=== PATIENT | male | born 1970 | race Two or more races ===

== ENCOUNTER 2016-11-03 16:06 | Emergency (ER) | payer MEDICAID ==
--- NOTE | 2016-11-03 16:50 | ED Physician Chart ---
Chief Complaint/HPI - Patient Information Date Seen:: 11/03/16 Time Seen:: 16:35 Chief Complaint:: PAIN AND REDNESS IN LT LEG SINCE MIDNIGHT History of Present Illness:: This 46-year-old male states that he sustained an injury to his left foot when he was "crawling over a wall" yesterday at about 7 PM. About midnight the patient noticed that he was having fever and that the area had turned red and painful. Patient has no prior similar episodes and is not a diabetic to the best of his knowledge. Review of Systems - Review of Systems General/Constitutional: Fever, Chills, No weight loss, No weakness, No diaphoresis, No loss of appetite Skin: Skin lesions, Rash, Bruising Head: No headache, No light-headedness Eyes: No loss of vision, No diplopia ENT: No earache, No sore throat, No tinnitus Neck: No neck pain, No swelling, No stiffness, No mass noted Cardio Vascular: No chest pain, No palpitations, No PND, No edema Pulmonary: No SOB, No cough, No sputum GI: No nausea, No vomiting, No pain, No constipation, No hematemesis G/U: No dysuria, No frequency, No hematuria Musculoskeletal: No bone or joint pain, No back pain, No muscle pain Endocrine: No polyuria, No polydipsia Psychiatric: Prior psych history Hematopoietic: No bruising, No lymphadenopathy Neurological: No syncope, No focal symptoms, No weakness, No paresthesia, No headache, No seizure, No dizziness, No confusion, No vertigo Past Medical History - Past Medical History Past Medical History: No significant medical hx Social History: Non Smoker, No Drug Use, Surgical History: None Psychiatricy History: None Family Medical History - Family Member Mother History Unknown: Yes Ethnicity: Living Status: Unknown Physical Exam - Physical Examination General/Constitutional: Awake, Well-developed, well-nourished, Alert, GCS 15, Non-toxic appearing, Ambulatory Head: Atraumatic Eyes: Lids, conjuctiva normal Other Skin comments:: THE PT HAS A CLEAR CELLULITIS STARTING IN THE WEB SPACE BETWEEN THE BIG AND SECOND TOE AND EXTENDING UP THE ANTERIOR PORTION OF THE LEG TO JUST BELOW THE KNEE. THE AREA IS VERY ERYTHEMIC, AND WELL MARGFINATED WITH SOME SEPARATE ISLANDS OF REDNESS. MINIMAL TENDERNESS OF THE ERYTHEMIC AREA. NO REGIONAL LYMPHADENOPATHY. ENMT: External ears, nose nl Neck: No JVD Respiratory: Nl effort/Exclusion Other Extremities comments:: Limited physical examination of the left lower extremity. The patient has mild edema of the right lower extremity anteriorly and below the knee. It extends to just above the ankle. There is marked erythema with sharp margins of the knee and at the ankle. The area is tender to the touch and warm. The patient has an abrasion over the dorsal surface of the webspace between the big toe and the second toe.. No palpable adenopathy in the inguinal region. No lymphangitis. Labs/Radiology/EKG Results - Lab Results Results: NO INDICATIONS FOR LAB OR RADIOGRAPHIC STUDIES. Assessment - Assessment General Assessment: CASE SUMMARY: PT WITH STRAIGHT FORWARD INJURY TO THE LEFT FOOT AND INFECTION THAT SPREAD TO THE LT ANTERIOR LEG. PT HAD FEVER AND CHILLS AT THE TIME OF ONSET. PT WAS TREATED WITH IM ANCEF AND D/C WITH RX FOR CEPHALEXIN 500 MG TO BE TAKEN QID FOR 10 DAYS.. RE-CHECK SCHEDULED FOR NEXT DAY TO LOOK AT THE OUTLINED MARGINS OF THE INFECTION. MDM DDX OF REDNESS OF THE LT LEG: NOT INFECTED FOREIGN BODY BASED ON HISTORY AND EXAM. NOT DVT BASED ON EXAMINAION. NOT NECROTIZING FASCIITIS BASED ON HISTORY AND EXAM. ED Septic Shock - . Is Septic Shock (SBP<90, OR Lactate>4 mmol\\L) present?: No Reassessment (Disposition) - Reassessment Reassessment Condition:: Unchanged - Diagnosis Diagnosis:: ABRASION left foot between the big toe and second toe. CELLULITIS of the left anterior tibial region. Take the cephalexin 4 times a day for the next 10 days. Return to the emergency department 2 days for recheck of wound and cellulitis or sooner if the redness spreads beyond the boundaries of the marked infection. - Patient Disposition Discharge/Transfer:: Home ED Discharge Plan - Patient Disposition Admit/Discharge/Transfer: PT DISCHARGED HOME Condition at Disposition: Stable Instructions: Cellulitis
[2016-11-03] MEDS ORDERED: Bacitracin Zinc/Polymyxin B Oint 15 gm Tube TP ONE (16:55)
[2016-11-03] MEDS ORDERED: Triple Antibiotic 0.94 gm Pkt TP ONE (17:01)
== END 2016-11-03 17:45 | disposition home or self-care (01) ==
LOC: ER 16:06
DX: S90.812A Abrasion, left foot, initial encounter (principal); L03.116 Cellulitis of left lower limb; X58.XXXA Exposure to other specified factors, initial encounter; Y93.89 Activity, other specified; Y92.89 Other specified places as the place of occurrence of the external cause; Y99.8 Other external cause status
CPT/HCPCS: 99283; 96372; J0690; A4217; J2001; Z7502

== ENCOUNTER 2018-02-18 18:51 | Inpatient (IN) | payer MEDICAID ==
--- NOTE | 2018-02-18 20:57 | ED Physician Chart ---
ED Chief Complaint/HPI - Patient Information Date Seen:: 02/18/18 Time Seen:: 20:40 Chief Complaint:: abdominal swelling History of Present Illness:: Patient's had abdominal swelling abdominal pain, and leg swelling for last 1 week. He has shortness of breath and no chest pain. Patient's been in a rehabilitation program for alcohol abuse for 18 days. His last alcohol consumption was 12 days ago, cough for 2 days. No fever. Allergies:: Allergies Allergy/AdvReac Type Severity Reaction Status Date / Time No Known Allergies Allergy Verified 02/18/18 19:06 Vitals:: Vital Signs - 8 hr 02/18/18 19:00 Temp 98.2 F HR 88 RR 16 BP 131/76 O2 Sat % 95 Historian:: Patient, Family Member Review:: Nurse's Note Reviewed ED Review of Systems - Review of Systems General/Constitutional: No fever, No chills, No weight loss, No weakness, No diaphoresis, No edema, No loss of appetite Skin: No skin lesions, No rash, No bruising Head: No headache, No light-headedness Eyes: No loss of vision, No pain, No diplopia ENT: No earache, No nasal drainage, No sore throat, No tinnitus Neck: No neck pain, No swelling, No thyromegaly, No stiffness, No mass noted Cardio Vascular: No chest pain, No palpitations, No PND, No orthopnea, No edema Pulmonary: No SOB, No cough, No sputum, No wheezing GI: No nausea, No vomiting, No diarrhea, Pain, No melena, No hematochezia, No constipation, No hematemesis, Other (abdominal distention) G/U: No dysuria, No frequency, No hematuria Musculoskeletal: No bone or joint pain, No back pain, No muscle pain, Other ( leg swelling) Endocrine: No polyuria, No polydipsia Psychiatric: No prior psych history, No depression, No anxiety, No suicidal ideation Hematopoietic: No bruising, No lymphadenopathy Allergic/Immuno: No urticaria, No angioedema Neurological: No syncope, No focal symptoms, No weakness, No paresthesia, No headache, No seizure, No dizziness, No confusion, No vertigo ED Past Medical History - Past Medical History Past Medical History: No significant medical hx Family History: None Social History: Non Smoker, Alcohol, Other (drank tequila heavily for 30 years) Surgical History: None Psychiatricy History: None Medication: None Family Medical History - Family Member Mother History Unknown: Yes Ethnicity: Living Status: Unknown ED Physical Exam - Physical Examination General/Constitutional: Awake, No distress Other Gen/Cons comments:: Distended abdomen; in no acute distress Head: Atraumatic Eyes: Lids, conjuctiva normal Other Eyes comments:: Icteric sclera Other Skin comments:: Skin 2/4 jaundiced Neck: No nuchal rigidity Respiratory: Nl effort/Exclusion, Clear to Auscultation Cardio Vascular: RRR GI: No tenderness/rebounding/guarding Other GI comments:: About 3 cm umbilical hernia; abdominal wall skin edematous; abdomen 3 out of 4 distended : No CVA tenderness Other Extremities comments:: 3 out of 4 pretibial pitting edema Neuro/Psych: No focal deficits Misc: Normal back ED Labs/Radiology/EKG Results - Lab Results Results: Laboratory Results - last 24 hr 02/18/18 02/18/18 02/18/18 21:01 21:01 21:01 WBC 5.6 RBC 4.76 Hgb 14.9 Hct 44.0 MCV 92.4 MCH 31.3 H MCHC Differential 33.8 RDW 19.4 Plt Count 74 L MPV 8.0 Neutrophils % 65.4 Lymphocytes % 18.0 L Monocytes % 12.7 H Eosinophils % 1.6 Basophils % 2.3 H PT 16.6 H INR 1.56 H Sodium 126 L Potassium 3.5 Chloride 96 L Carbon Dioxide 23.6 Anion Gap 9.9 BUN 7 Creatinine 0.8 Est GFR ( Amer) > 60.0 Est GFR (Non-Af Amer) > 60.0 BUN/Creatinine Ratio 8.8 Glucose 111 H Calcium 8.3 L Total Bilirubin 24.0 H AST 139 H ALT 70 H Alkaline Phosphatase 186 H Total Protein 6.8 Albumin 2.5 L Globulin 4.3 Albumin/Globulin Ratio 0.6 L Lipase 50 - Radiology Results Results: Chest x-ray showed left pleural effusion and possible left basilar infiltrate; CT abdomen and pelvis showed moderate ascites, liver cirrhosis, prominent spleen , anasarca, umbilical hernia and gallstones - EKG Interpretations Rate & Rhythm: normal sinus rhythm with a rate of 63 [place]: normal Comments:: Old septal myocardial infarction; left ventricular hypertrophy by voltage criteria ED Septic Shock - . Is Septic Shock (SBP<90, OR Lactate>4 mmol\L) present?: No - <6hrs of presentation: Vital Signs: Vital Signs - 8 hr 02/18/18 19:00 Temp 98.2 F HR 88 RR 16 BP 131/76 O2 Sat % 95 ED Reassessment (Disposition) - Reassessment Reassessment Condition:: Unchanged - Diagnosis Diagnosis:: Cirrhosis with ascites; hyperbilirubinemia; left pleural effusion; pneumonia; hyperprothrombinemia; hypoalbuminemia - Patient Disposition Admitted to:: Med/Surg Admitting Medical Physician:: Jamin Horton Condition at Disposition:: Stable, Unchanged
[2018-02-18 21:09] LABS: % BASOPHILS 2.3 % (0.0-2.0); % EOSINOPHILS 1.6 % (0.0-5.0); % MONOCYTES 12.7 % (2.0-10.0); % NEUTROPHILS 65.4 % (40.0-80.0); BASOPHILE ABSOLUTE 0.1 Th/cumm (0-0.2); EOSINOPHILE ABSOLUTE 0.1 Th/cmm (0.1-0.4); HEMOGLOBIN 14.9 gm/dL (12-16); MEAN CELL VOLUME 92.4 fl (80-99); MEAN CORPUSCULAR HEMOGLOBIN 31.3 pg (26.0-30.0); MEAN CORPUSCULAR HGB CONC 33.8 pg (28.0-36.0); MONOCYTE ABSOLUTE 0.7 Th/cmm (0.3-1.0); NEUTROPHILE ABSOLUTE 3.7 Th/cmm (1.8-8.0); PLATELET COUNT 74 Th/cmm (150-400); RED BLOOD COUNT 4.76 Mil/cmm (4.30-5.70); RED CELL DISTRIBUTION WIDTH 19.4 % (11.5-20.0); WHITE BLOOD COUNT 5.6 Th/cmm (4.8-10.8)
[2018-02-18 21:23] LABS: INR 1.56 (0.5-1.4); PROTHROMBIN TIME (TEST) 16.6 SECONDS (9.5-11.5)
[2018-02-18 21:27] LABS: ALB/GLOB RATIO 0.6 (1.0-1.8); ALBUMIN 2.5 gm/dL (4.2-5.5); ALKALINE PHOSPHATASE 186 U/L (34-104); ANION GAP 9.9 (7.0-16.0); BUN - UREA NITROGEN 7 mg/dL (7-25); CALCIUM SERUM 8.3 mg/dL (8.6-10.3); CARBON DIOXIDE 23.6 mEq/L (21.0-31.0); CHLORIDE 96 mEq/L (98-107); CREATININE - SERUM 0.8 mg/dL (0.7-1.3); GFR AFRICAN-AMERICAN > 60.0 ml/min (>90); GFR NON AFRICAN-AMERICAN > 60.0 ml/min; GLUCOSE 111 mg/dL (70-105); LIPASE 50 U/L (11-82); POTASSIUM SERUM 3.5 mEq/L (3.5-5.1); SGOT 139 U/L (13-39); SGPT/ALT 70 U/L (7-52); SODIUM SERUM 126 mEq/L (136-145); TOTAL PROTEIN,SERUM 6.8 gm/dL (6.0-8.3)
[2018-02-18 22:09] LABS: URINE MICROSCOPIC INDICATED? YES; URINE SOURCE MIDSTREAM
[2018-02-18 22:14] LABS: URINE BILIRUBIN LARGE (NEGATIVE); URINE BLOOD NEGATIVE (NEGATIVE); URINE CLARITY CLOUDY (CLEAR); URINE COLOR BROWN; URINE GLUCOSE (UA) 100 mg/dL (NEGATIVE); URINE KETONE NEGATIVE (NEGATIVE); URINE LEUKOCYTE ESTERASE NEGATIVE (NEGATIVE); URINE NITRATE NEGATIVE (NEGATIVE); URINE PH 6.5 (4.6 - 8.0); URINE PROTEIN TRACE mg/dL (NEGATIVE)
[2018-02-18 22:17] LABS: URINE BACTERIA NONE SEEN /hpf (NONE SEEN); URINE EPITHELIAL CELLS MODERATE /lpf (FEW); URINE RBC 0-2 /hpf (0-5); URINE WBC 0-2 /hpf (0-5)
[2018-02-18] MEDS ORDERED: cefTRIAXone 1 GM in Sodium Chloride 0.9% 50 ML IV ONE (22:28)
[2018-02-19 04:14] VITALS: BP 124/78
[2018-02-19 05:30] LABS: INR 1.67 (0.5-1.4); PROTHROMBIN TIME (TEST) 17.9 SECONDS (9.5-11.5)
[2018-02-19 05:36] LABS: ALB/GLOB RATIO 0.6 (1.0-1.8); ALKALINE PHOSPHATASE 148 U/L (34-104); ANION GAP 7.5 (7.0-16.0); BILIRUBIN,TOTAL 18.7 mg/dL (0.3-1.0); BUN - UREA NITROGEN 7 mg/dL (7-25); CALCIUM SERUM 7.7 mg/dL (8.6-10.3); CARBON DIOXIDE 24.8 mEq/L (21.0-31.0); CHLORIDE 99 mEq/L (98-107); CREATININE - SERUM 0.8 mg/dL (0.7-1.3); GFR AFRICAN-AMERICAN > 60.0 ml/min (>90); GFR NON AFRICAN-AMERICAN > 60.0 ml/min; GLUCOSE 107 mg/dL (70-105); MAGNESIUM 2.3 mg/dL (1.9-2.7); POTASSIUM SERUM 3.3 mEq/L (3.5-5.1); SGOT 114 U/L (13-39); SGPT/ALT 58 U/L (7-52); SODIUM SERUM 128 mEq/L (136-145); TOTAL PROTEIN,SERUM 5.5 gm/dL (6.0-8.3)
[2018-02-19 05:40] LABS: % BASOPHILS 0.9 % (0.0-2.0); % EOSINOPHILS 1.5 % (0.0-5.0); % LYMPHOCYTES 16.3 % (20.0-50.0); % MONOCYTES 14.3 % (2.0-10.0); EOSINOPHILE ABSOLUTE 0.1 Th/cmm (0.1-0.4); HEMATOCRIT 37.7 % (41.0-60); HEMOGLOBIN 13.2 gm/dL (12-16); LYMPHOCYTE ABSOLUTE 0.8 Th/cmm (1.5-3.0); MEAN CELL VOLUME 91.3 fl (80-99); MEAN CORPUSCULAR HEMOGLOBIN 31.9 pg (26.0-30.0); MEAN CORPUSCULAR HGB CONC 34.9 pg (28.0-36.0); MEAN PLATELET VOLUME 8.3 fl; MONOCYTE ABSOLUTE 0.7 Th/cmm (0.3-1.0); NEUTROPHILE ABSOLUTE 3.3 Th/cmm (1.8-8.0); PLATELET COUNT 58 Th/cmm (150-400); RED BLOOD COUNT 4.13 Mil/cmm (4.30-5.70); RED CELL DISTRIBUTION WIDTH 19.3 % (11.5-20.0); WHITE BLOOD COUNT 4.9 Th/cmm (4.8-10.8)
--- NOTE | 2018-02-19 08:23 | Diagnostic Imaging Report ---
CHEST X-RAY: AP view INDICATION: Shortness of breath COMPARISON: None FINDINGS: Congestive changes are seen with small left effusion. Mild cardiomegaly is noted. Degenerative changes of the spine are noted. IMPRESSION: Congestive changes with small left effusion. Pneumonia of the left lung base cannot be excluded.
--- NOTE | 2018-02-19 08:52 | Diagnostic Imaging Report ---
CT abdomen and pelvis without intravenous contrast Indication: Abdominal pain Comparison: None, Technique: Axial images were obtained from the lung bases to the bilateral proximal femurs without IV contrast. Coronal reconstructions were made. total DLP: 1063, CTDI19.3 FINDINGS: Hypoventilatory changes of the lung bases are seen. Small left effusion is seen with left basal passive atelectatic and consolidative changes. Assessment of the solid organs is limited due to lack of IV contrast. There is moderate ascites and diffuse inflammatory change and haziness throughout the mesentery. Cirrhotic liver is seen with mild prominence of the left lobe. No focal lesions identified. There is suggestion of gallstones. Splenomegaly is noted. No focal lesions. Limited assessment of pancreas demonstrates no obvious focal lesions. No focal adrenal lesions. No evidence of hydronephrosis of focal renal lesions. Moderate stool is noted. No evidence of appendicitis. Moderate-sized fat-containing umbilical hernia is noted. Diffuse anasarca is noted. Degenerative changes of the spine are noted. IMPRESSION: Moderate abdominal and pelvic ascites. There is also generalized haziness and inflammatory change throughout the mesentery likely to patient's ascites Diffuse anasarca. Cirrhotic liver. Splenomegaly is also noted. Please correlate with patient's clinical history. gallstones. Ultrasound would further clarify. Moderate-sized fat-containing umbilical hernia. Left effusion and left basal infiltrates.
--- NOTE | 2018-02-19 09:34 | Diagnostic Imaging Report ---
CHEST X-RAY: AP view INDICATION: Pneumonia COMPARISON: 02/18/2018 FINDINGS: Congestive changes are seen with small left effusion. Mild cardiomegaly is noted. IMPRESSION: Congestive changes and small left effusion. Pneumonia of the left lung base cannot be excluded.
--- NOTE | 2018-02-19 10:27 | Diagnostic Imaging Report ---
Ultrasound abdomen, History: Quantitate ascites Comparison with CT abdomen and pelvis on 02/18/2018 Technique/procedure: Sonography evidence for new multiple planes. Mild to moderate ascites is seen with greatest fluid pocket in the right upper quadrant measuring 920 mL's. Total amount of ascites was 1250 ml. IMPRESSION: Mild to moderate ascites with total amount of quantitated ascites at 1250 mL.
--- NOTE | 2018-02-19 11:23 | History & Physical ---
ADMIT DATE: 02/19/2018 CHIEF COMPLAINT: Worsening abdominal distention. HISTORY OF PRESENT ILLNESS: This is a 47-year-old gentleman with no known medical history who was actually in a rehab center for chronic ETOH, who was told to come into the ED given worsening abdominal distention and abdominal discomfort. The patient apparently was admitted to the rehabilitation center 2 weeks ago and was doing well until a couple of days after admission we started noted abdominal distention, abdominal discomfort, and lower extremity edema. Given that this did not improve, he was told to come into the ED where pertinent findings include a sodium of 126, total bilirubin of 24, AST 139, ALT 70, alkaline phosphatase 186, and INR of 1.56. He also underwent a CT of the abdomen and pelvis with official results pending and given that he presented also with a cough at times productive. An x-ray showed congestive changes with small left pleural effusion. Pneumonia of the left lung cannot be excluded. On further questioning, the patient has a history of chronic ETOH for over 20 years. He apparently started drinking on a daily basis at age 24 or so, which consist of at least a daily 6-pack with occasional hard liquor, i.e., tequila and on the weekends this was likely double per patient's special recounts. 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 He denies any fever or chills. He denies any other GI symptomatology such as hematemesis, nausea, vomiting, but does report occasional black stools. He also thinks he might have hemorrhoids as sometimes his bowel movements are painful. Again, he denies any GI bleeding or any previous GI workup. He also denies any withdrawal symptoms in the past. PAST MEDICAL HISTORY: Presumed alcoholic liver disease. PAST SURGICAL HISTORY: No major surgeries noted. FAMILY HISTORY: His father secondary to lung disease. There is no history of liver issues in the family. SOCIAL HISTORY: Please refer to the HPI. He denies any tobacco. He denies any illicit drug usage. 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 He has been twice with 2 children in his first marriage. Currently, he lives with his second . ALLERGIES: NKDA. OUTPATIENT MEDICATIONS: None, but apparently he was getting some type of anxiolytic at the rehabilitation center. REVIEW OF SYSTEMS: CONSTITUTIONAL: No recent fever or chills. He does report weight loss and swelling as noted above. PULMONARY: Some cough report over the last couple of weeks with mild shortness of breath secondary to the abdominal distention. CARDIOVASCULAR: No chest pain, no angina type symptomatology. GASTROINTESTINAL: Please refer to the HPI. He does not report constipation or diarrhea like I said occasional black stools, but no bright red blood per rectum. GENITOURINARY: Denies any decrease in urine output. He denies any UTI symptomatology. NEUROLOGIC: When he drinks, he does feel little times oozy and confused, but chronically he denies any encephalopathic type symptomatology. PHYSICAL EXAMINATION: VITAL SIGNS: Temperature 98.4, pulse 80, respirations 17, BP 124/78, satting 97% on room air. GENERAL: He is a well-developed, obese male, awake, alert, and oriented x 3, not in acute distress. HEENT AND NECK: Normocephalic, atraumatic. Pupils are reactive to light. Extraocular movements are intact. Oropharynx is moist and clear. CARDIAC: Regular rate and rhythm with no murmurs. LUNGS: Diminished at both bases. Currently, no audible rhonchi or wheezing. ABDOMEN: Distended, mildly tense with currently hypoactive bowel sounds. I see no evidence of caput medusae. EXTREMITIES: In lower extremities, there is 2+ edema up to the ___ on both extremities. There is no clubbing or cyanosis. LABORATORY DATA: White count 5.6, H and H 14/44, platelet count of 74. INR is 1.56. Sodium 126, potassium 3.5, chloride 96, BUN 7, creatinine 0.8, glucose 111. Mag 2.3, total bilirubin 24, AST 139, ALT 70, alkaline phosphatase 186. Albumin is 2.5. Urine was positive for glucose, large bilirubin. DIAGNOSTICS: Please refer to the HPI. ASSESSMENT: 1. Alcoholic liver disease with portal hypertension with currently no evidence of active GI bleeding. 2. Ascites secondary to liver disease. 3. Anasarca/volume overload. 4. Hyponatremia. 5. Elevated liver enzymes. 6. Hyponatremia. 7. Coagulopathy secondary to above. 8. Likely left-sided pneumonia versus possible bronchitis. Other differential would include atelectasis secondary to volume overload/ascites. 9. Glucosuria rule out diabetes. PLAN: The patient has been admitted to medical/surgical floor for further management and care. The patient has been placed on Lasix, spironolactone, and empiric IV antibiotics. We will monitor I's and O's and daily weights. He has been given vitamin K for his coagulopathy in preparation for an ultrasound-guided paracentesis. The patient also has undergone a CT of the abdomen and pelvis for further eval. Daily labs will also be asked for including coagulation studies and LFTs and GI consult will be asked for further management and care. A clinical social work therapist eval also has been asked for further outpatient services once upon discharge. JOB# [id number] KAYLEE
[2018-02-19] MEDS: cefTRIAXone 1 GM in Sodium Chloride 0.9% 50 ML IV SCH (20:43)
[2018-02-20 06:22] LABS: % EOSINOPHILS 1.9 % (0.0-5.0); % LYMPHOCYTES 20.5 % (20.0-50.0); % MONOCYTES 11.8 % (2.0-10.0); % NEUTROPHILS 65.8 % (40.0-80.0); EOSINOPHILE ABSOLUTE 0.1 Th/cmm (0.1-0.4); HEMATOCRIT 37.5 % (41.0-60); HEMOGLOBIN 13.4 gm/dL (12-16); MEAN CELL VOLUME 92.6 fl (80-99); MEAN CORPUSCULAR HEMOGLOBIN 33.1 pg (26.0-30.0); MEAN CORPUSCULAR HGB CONC 35.8 pg (28.0-36.0); MEAN PLATELET VOLUME 8.6 fl; MONOCYTE ABSOLUTE 0.6 Th/cmm (0.3-1.0); NEUTROPHILE ABSOLUTE 3.1 Th/cmm (1.8-8.0); PLATELET COUNT 50 Th/cmm (150-400); RED BLOOD COUNT 4.05 Mil/cmm (4.30-5.70); RED CELL DISTRIBUTION WIDTH 19.4 % (11.5-20.0); WHITE BLOOD COUNT 4.8 Th/cmm (4.8-10.8)
[2018-02-20 06:26] LABS: ALB/GLOB RATIO 0.5 (1.0-1.8); ALKALINE PHOSPHATASE 144 U/L (34-104); ANION GAP 8.7 (7.0-16.0); BILIRUBIN,TOTAL 18.3 mg/dL (0.3-1.0); BUN - UREA NITROGEN 9 mg/dL (7-25); CALCIUM SERUM 7.8 mg/dL (8.6-10.3); CARBON DIOXIDE 24.7 mEq/L (21.0-31.0); CHLORIDE 98 mEq/L (98-107); CREATININE - SERUM 0.8 mg/dL (0.7-1.3); GFR AFRICAN-AMERICAN > 60.0 ml/min (>90); GFR NON AFRICAN-AMERICAN > 60.0 ml/min; GLUCOSE 105 mg/dL (70-105); POTASSIUM SERUM 3.4 mEq/L (3.5-5.1); SGOT 115 U/L (13-39); SGPT/ALT 58 U/L (7-52); SODIUM SERUM 128 mEq/L (136-145); TOTAL PROTEIN,SERUM 5.8 gm/dL (6.0-8.3)
[2018-02-20 07:01] LABS: INR 1.53 (0.5-1.4); PROTHROMBIN TIME (TEST) 16.3 SECONDS (9.5-11.5)
[2018-02-20] MEDS ORDERED: Potassium Chloride 20 mEq ER Tab PO ONE (11:30)
[2018-02-20] MEDS: Albuterol/Ipratropium Neb 3 ML AERS HHN SCH ×3 (12:15→19:15)
[2018-02-20] MEDS: Azithromycin 500 MG in Sodium Chloride 0.9% 250 ML IV SCH (12:56)
[2018-02-20] MEDS: cefTRIAXone 1 GM in Sodium Chloride 0.9% 50 ML IV SCH (20:31)
[2018-02-21 05:33] LABS: % BASOPHILS 3.5 % (0.0-2.0); % EOSINOPHILS 1.9 % (0.0-5.0); % LYMPHOCYTES 17.9 % (20.0-50.0); % MONOCYTES 10.3 % (2.0-10.0); % NEUTROPHILS 66.4 % (40.0-80.0); BASOPHILE ABSOLUTE 0.2 Th/cumm (0-0.2); EOSINOPHILE ABSOLUTE 0.1 Th/cmm (0.1-0.4); HEMATOCRIT 38.6 % (41.0-60); HEMOGLOBIN 13.4 gm/dL (12-16); LYMPHOCYTE ABSOLUTE 0.8 Th/cmm (1.5-3.0); MEAN CELL VOLUME 93.2 fl (80-99); MEAN CORPUSCULAR HEMOGLOBIN 32.4 pg (26.0-30.0); MEAN CORPUSCULAR HGB CONC 34.8 pg (28.0-36.0); MEAN PLATELET VOLUME 8.3 fl; MONOCYTE ABSOLUTE 0.5 Th/cmm (0.3-1.0); PLATELET COUNT 48 Th/cmm (150-400); RED BLOOD COUNT 4.14 Mil/cmm (4.30-5.70); RED CELL DISTRIBUTION WIDTH 19.3 % (11.5-20.0); WHITE BLOOD COUNT 4.6 Th/cmm (4.8-10.8)
[2018-02-21 05:52] LABS: INR 1.59 (0.5-1.4); PROTHROMBIN TIME (TEST) 16.9 SECONDS (9.5-11.5)
[2018-02-21 05:57] LABS: ANION GAP 9.3 (7.0-16.0); BUN - UREA NITROGEN 9 mg/dL (7-25); CALCIUM SERUM 7.8 mg/dL (8.6-10.3); CARBON DIOXIDE 23.1 mEq/L (21.0-31.0); CHLORIDE 99 mEq/L (98-107); CREATININE - SERUM 0.7 mg/dL (0.7-1.3); GFR AFRICAN-AMERICAN > 60.0 ml/min (>90); GFR NON AFRICAN-AMERICAN > 60.0 ml/min; GLUCOSE 95 mg/dL (70-105); MAGNESIUM 2.3 mg/dL (1.9-2.7); POTASSIUM SERUM 3.4 mEq/L (3.5-5.1); SODIUM SERUM 128 mEq/L (136-145)
[2018-02-21] MEDS: Albuterol/Ipratropium Neb 3 ML AERS HHN SCH ×4 (07:02→19:14)
[2018-02-21] MEDS: Multivitamin Tab PO SCH (08:42)
[2018-02-21] MEDS: Azithromycin 500 MG in Sodium Chloride 0.9% 250 ML IV SCH (12:17)
[2018-02-21] MEDS ORDERED: Potassium Chloride 20 mEq ER Tab PO ONE (13:15)
--- NOTE | 2018-02-21 20:39 | Consultation ---
DATE OF CONSULTATION: 02/19/2018 REASON FOR CONSULTATION: Abdominal pain, jaundice. HISTORY OF PRESENT ILLNESS: This consult was obtained through the request of Dr. Horton for this 47-year-old alcoholic and obese, presented to the hospital because of abdominal distention and abdominal discomfort. Apparently, he was in rehab center. He was drinking heavily continuously for 18 days. When the patient came to the hospital, he was found to have abdominal distention, ascites, but it was too small to tap. He also had abnormal liver enzymes. The patient was admitted. GI consult was called in for further evaluation. The patient denies any hematemesis, melena, or hematochezia. PAST MEDICAL HISTORY: No known medical history. PAST SURGICAL HISTORY: Negative. SOCIAL HISTORY: Positive for excessive alcohol abuse. Nonsmoker, non-IV drug abuser. FAMILY HISTORY: Noncontributory. ALLERGIES: No known drug allergy. MEDICATIONS: None. REVIEW OF SYSTEMS: No weight loss. No hematemesis, melena, or hematochezia. PHYSICAL EXAMINATION: GENERAL: The patient is awake, oriented to self, place, and time. Moderate distress. VITAL SIGNS: Blood pressure of 111/78, heart rate 82, respiratory rate 20, and temperature 97.6. HEAD AND NECK: Pupils reactive to light and accommodation. Extraocular muscles intact. Sclerae are anicteric. Conjunctivae not pale. Oral cavity, no lesion. CHEST: Good air entry. LUNGS: Showed few rhonchi. CARDIOVASCULAR: Regular rate and rhythm. No murmur or gallop. ABDOMEN: Distended, positive bowel sound, diffusely tender. EXTREMITIES: Lower extremities 1-2+ edema. CENTRAL NERVOUS SYSTEM: Grossly nonfocal. LABORATORY DATA: H and H of 13.2 and 37.7 and platelets of 58. PT 17.9 seconds and INR 1.67. Bilirubin is 18.7, AST is 114, ALT 58, and alkaline phosphatase 148. Ultrasound showed ascites with 1250 mL ____. IMPRESSION: A 47-year-old alcoholic, presenting with jaundice and abdominal distention. ASSESSMENT AND PLAN: 1. Possible acute alcoholic hepatitis. 2. Possible alcoholic liver disease. 3. Decompensated liver disease. 4. Ascites. 5. Coagulopathy. RECOMMENDATIONS: 1. Change Aldactone to 100 mg b.i.d. 2. Change Lasix to 40 mg b.i.d. 3. Monitor labs. 4. Multivitamin, thiamine, and folic acid. 5. ____. 6. Further recommendations to follow. Other medical problem as per Dr. Horton. Thank you Dr. Horton for allowing us to participate in the care of the patient. If you have any further questions, please let me know. JOB# [id number]
[2018-02-21] MEDS: cefTRIAXone 1 GM in Sodium Chloride 0.9% 50 ML IV SCH (21:23)
[2018-02-22 06:27] LABS: % EOSINOPHILS 2.5 % (0.0-5.0); % LYMPHOCYTES 18.8 % (20.0-50.0); % MONOCYTES 10.2 % (2.0-10.0); % NEUTROPHILS 68.5 % (40.0-80.0); EOSINOPHILE ABSOLUTE 0.1 Th/cmm (0.1-0.4); HEMATOCRIT 38.6 % (41.0-60); HEMOGLOBIN 13.5 gm/dL (12-16); LYMPHOCYTE ABSOLUTE 0.8 Th/cmm (1.5-3.0); MEAN CELL VOLUME 93.3 fl (80-99); MEAN CORPUSCULAR HEMOGLOBIN 32.6 pg (26.0-30.0); MEAN PLATELET VOLUME 8.9 fl; MONOCYTE ABSOLUTE 0.5 Th/cmm (0.3-1.0); NEUTROPHILE ABSOLUTE 3.1 Th/cmm (1.8-8.0); PLATELET COUNT 42 Th/cmm (150-400); RED BLOOD COUNT 4.14 Mil/cmm (4.30-5.70); RED CELL DISTRIBUTION WIDTH 18.9 % (11.5-20.0); WHITE BLOOD COUNT 4.5 Th/cmm (4.8-10.8)
[2018-02-22 06:48] LABS: ANION GAP 8.8 (7.0-16.0); BUN - UREA NITROGEN 8 mg/dL (7-25); CALCIUM SERUM 7.7 mg/dL (8.6-10.3); CARBON DIOXIDE 23.8 mEq/L (21.0-31.0); CHLORIDE 98 mEq/L (98-107); CREATININE - SERUM 0.7 mg/dL (0.7-1.3); GFR AFRICAN-AMERICAN > 60.0 ml/min (>90); GFR NON AFRICAN-AMERICAN > 60.0 ml/min; GLUCOSE 97 mg/dL (70-105); POTASSIUM SERUM 3.6 mEq/L (3.5-5.1); SODIUM SERUM 127 mEq/L (136-145)
[2018-02-22] MEDS: Albuterol/Ipratropium Neb 3 ML AERS HHN SCH ×3 (07:41→15:52)
--- NOTE | 2018-02-22 08:53 | Diagnostic Imaging Report ---
Exam: Portable chest x-ray HISTORY: Pneumonia. Findings: Portable examination of chest at 0750 hours reviewed compared to prior study of 02/19/2018 demonstrates increased left-sided pneumonia and effusion. There is evidence for cardiomegaly superimposed mild congestion. Bony thorax is intact. impression: Increase in left pleural effusion with superimposed pneumonia Cardiomegaly mild congestion. Follow-up examination recommended
[2018-02-22] MEDS ORDERED: Metolazone 5 MG TAB PO SCH (09:00)
[2018-02-22] MEDS: Multivitamin Tab PO SCH (09:36)
[2018-02-22] MEDS: Azithromycin 500 MG in Sodium Chloride 0.9% 250 ML IV SCH (12:36)
--- NOTE | 2018-02-22 12:45 | Diagnostic Imaging Report ---
Abdominal ultrasound (Limited) HISTORY: Ascites Sonographic sector images obtained over the abdomen for assessment of ascites. The exam demonstrates a a mild to moderate amount of diffuse ascites within the abdomen and pelvis. Little change compared to the prior study of February 19, 2018 (1360 mL). Intra-abdominal organs were not evaluated at this time. IMPRESSION: Ascites as noted above
--- NOTE | 2018-03-06 09:21 | Discharge Summary ---
DATE OF DISCHARGE: ____ findings soon after being admitted to the rehabilitation ____. He apparently had ____ diagnosed with ____ findings of the ED included a sodium of 126, AST 139, ALT 70. INR 1.56 and a total bilirubin of 24.0. He underwent the above-mentioned CT of the abdomen and pelvis and was admitted to the medical/surgical floor for management and care. The patient was placed on fluid restriction, Lasix and spironolactone as well as IV antibiotics (Zithromax and Rocephin) for left-sided ____ showed mild improvement with a sodium remaining around the 127-128 level. His liver enzymes were also noted to remain somewhat in the high level, but with some degree of improvement. MEDICATIONS ON DISCHARGE: Trental 400 mg t.i.d. with meals, omeprazole 20 mg every day, Aldactone 100 mg b.i.d., Lasix 40 mg b.i.d., folic acid 1 mg every day, thiamine 100 mg every day. CONDITION ON DISCHARGE: Stable. DISPOSITION: The patient was instructed to follow up with his primary care doctor within 3-5 days and I also encouraged the patient to ask for a GI referral from his primary care doctor for possible outpatient EGD and further management. The patient told me that he did not have a PCP, however, I asked the social media manager and case management to address situation, which was done prior to his discharge. The patient was scheduled as an outpatient with a primary care doctor, which he agreed to follow. JOB# [id number]
== END 2018-02-22 17:17 | disposition home or self-care (01) | DRG 280 ==
LOC: ER 18:51 → MSI 22:40
PROVIDERS: ADMIT Internal Medicine; ATTEND Internal Medicine
DX: K70.11 Alcoholic hepatitis with ascites (principal); J18.9 Pneumonia, unspecified organism; J90 Pleural effusion, not elsewhere classified; D68.4 Acquired coagulation factor deficiency; D68.9 Coagulation defect, unspecified; E87.1 Hypo-osmolality and hyponatremia; E87.70 Fluid overload, unspecified; E88.09 Other disorders of plasma-protein metabolism, not elsewhere classified; K76.6 Portal hypertension; E11.9 Type 2 diabetes mellitus without complications; E66.9 Obesity, unspecified; Z68.27 Body mass index [BMI] 27.0-27.9, adult
CPT/HCPCS: 36415-UA; 71045-TC; 76705-TC; 80048-TC; 80053-TC; 81001-TC; 82140-TC; 83605; 83690-TC; 83735-TC; 85025-TC; 85610-TC; 93005; 94640; 94760; C9113; J0456; J0696; J1940; J3430

== ENCOUNTER 2018-09-17 09:39 | Inpatient (IN) | payer MEDICAID ==
[2018-09-17 10:46] LABS: HEMATOCRIT 36.9 % (41.0-60); HEMOGLOBIN 12.5 gm/dL (12-16); MEAN CORPUSCULAR HEMOGLOBIN 30.4 pg (26.0-30.0); MEAN CORPUSCULAR HGB CONC 33.8 pg (28.0-36.0); MEAN PLATELET VOLUME 9.1 fl; RED CELL DISTRIBUTION WIDTH 19.8 % (11.5-20.0); WHITE BLOOD COUNT 6.7 Th/cmm (4.8-10.8)
[2018-09-17 10:47] LABS: INR 1.8 (0.5-1.4); PROTHROMBIN TIME (TEST) 18.2 SECONDS (9.5-11.5)
[2018-09-17 10:48] LABS: PLATELET COUNT 45 Th/cmm (150-400)
--- NOTE | 2018-09-17 10:57 | Diagnostic Imaging Report ---
CT scan abdomen and pelvis without intravenous contrast HISTORY: Pain, cirrhosis Total DLP equals 970 CTDI equals 17.0 Axial sections were obtained from the xiphoid process down to the pubic symphysis. Limited sections through the lower chest demonstrate a moderate right pleural effusion. Underlying pulmonary parenchymal density consistent with probable atelectasis seen in the right lower lobe. The liver exhibits a diminished size with irregular contour. No focal lesions. The spleen is enlarged. Changes consistent with cirrhosis. No focal amenities seen within the pancreas. Intraluminal calcination seen in the gallbladder consistent with cholelithiasis. There is a small amount of diffuse ascites throughout the abdomen and pelvis. No focal renal lesions. No hydronephrosis. There is an approximate 2.0 cm defect within the anterior abdominal wall at the level of the umbilicus associated with heterogeneous density that may be related to vascular structures. No bowel dilatation. No abnormal masses seen within the pelvis. Haziness noted throughout the subcutaneous tissues of the abdomen and pelvis reflecting anasarca. IMPRESSION: 1. Findings consistent with cirrhosis. Changes included diminished hepatic size with an irregular contour and splenomegaly, small amount of diffuse ascites, anasarca. Little overall change in the intra-abdominal findings compared with exam of February 18, 2018. 2. Findings consistent with cholelithiasis 3. Moderate right pleural effusion with underlying pulmonary parenchymal changes suggesting probable atelectasis.
[2018-09-17 10:59] LABS: ALB/GLOB RATIO 0.6 (1.0-1.8); ALBUMIN 2.3 gm/dL (4.2-5.5); ALKALINE PHOSPHATASE 180 U/L (34-104); AMYLASE SERUM 46 U/L (29-103); ANION GAP 9.6 (7.0-16.0); BILIRUBIN,DIRECT 2.35 mg/dL (0.0-0.2); BILIRUBIN,TOTAL 4.7 mg/dL (0.3-1.0); BUN - UREA NITROGEN 10 mg/dL (7-25); CALCIUM SERUM 8.1 mg/dL (8.6-10.3); CARBON DIOXIDE 22.4 mEq/L (21.0-31.0); CHLORIDE 104 mEq/L (98-107); CHOLESTEROL 98 mg/dL (<200); CREATININE - SERUM 0.5 mg/dL (0.7-1.3); CREATININE KINASE 145 U/L (30-223); GFR AFRICAN-AMERICAN > 60.0 ml/min (>90); GFR NON AFRICAN-AMERICAN > 60.0 ml/min; GLUCOSE 148 mg/dL (70-105); HDL -HIGH DENSITY LIPOPROTEIN 9 mg/dL (23-92); LIPASE 91 U/L (11-82); SGOT 70 U/L (13-39); SGPT/ALT 44 U/L (7-52); SODIUM SERUM 133 mEq/L (136-145); TOTAL PROTEIN,SERUM 6.2 gm/dL (6.0-8.3); TRIGLYCERIDES 91 mg/dL (<150)
[2018-09-17 11:15] LABS: URINE SOURCE CLEAN C
[2018-09-17 11:19] LABS: URINE BILIRUBIN MODERATE (NEGATIVE); URINE BLOOD NEGATIVE (NEGATIVE); URINE GLUCOSE (UA) NEGATIVE (NEGATIVE); URINE KETONE NEGATIVE (NEGATIVE); URINE LEUKOCYTE ESTERASE NEGATIVE (NEGATIVE); URINE NITRATE NEGATIVE (NEGATIVE); URINE PROTEIN NEGATIVE (NEGATIVE)
[2018-09-17 11:24] LABS: URINE CLARITY CLEAR (CLEAR); URINE COLOR ORANGE; URINE MICROSCOPIC INDICATED? YES
[2018-09-17 11:26] LABS: BAND NEUTROPHILE 3 % (0-10); BASOPHIL 0 % (0-3); EOSINOPHIL 1 % (0-5); LYMPHOCYTE 12 % (20-50); MONOCYTE 9 % (2-10); NEUTROPHILS 75 % (40-80)
[2018-09-17 11:27] LABS: PLATELET ESTIMATE DECREASED PLATELETS (NORMAL)
[2018-09-17 11:43] LABS: URINE BACTERIA NONE SEEN /hpf (NONE SEEN); URINE EPITHELIAL CELLS OCCASIONAL /lpf (FEW); URINE ICTOTEST POSITIVE (NEGATIVE); URINE RBC 0-2 /hpf (0-5); URINE WBC 0-2 /hpf (0-5)
[2018-09-17] MEDS ORDERED: Potassium Chloride 20 mEq ER Tab PO ONE ×2 (11:46→11:47)
--- NOTE | 2018-09-17 11:50 | ED Physician Chart ---
ED Chief Complaint/HPI - Patient Information Date Seen:: 09/17/18 Time Seen:: 09:45 Chief Complaint:: Abdominal Pain History of Present Illness:: onset x 3 days of diffuse, intermittent, dull abdominal pain and distention; pt denies trauma, H/As, ALOC, AMS, LOC, neck pain, cough, C/P, SOB, A/N/V/D/C, fever, chills, bleeding, or urinary s/s Allergies:: Allergies Allergy/AdvReac Type Severity Reaction Status Date / Time No Known Allergies Allergy Verified 02/18/18 19:06 Vitals:: Vital Signs - 8 hr 09/17/18 09/17/18 09:46 11:31 Temp 98 F 98.4 F HR 92 81 RR 18 17 BP 131/54 122/63 O2 Sat % 98 98 Historian:: Patient Review:: Nurse's Note Reviewed, Old Chart Reviewed ED Review of Systems - Review of Systems General/Constitutional: No fever, No chills, No weight loss, No weakness, No diaphoresis, No edema, No loss of appetite Skin: No skin lesions, No rash, No bruising Head: No headache, No light-headedness Eyes: No loss of vision, No pain, No diplopia ENT: No earache, No nasal drainage, No sore throat, No tinnitus Neck: No neck pain, No swelling, No thyromegaly, No stiffness, No mass noted Cardio Vascular: No chest pain, No palpitations, No PND, No orthopnea, No edema Pulmonary: No SOB, No cough, No sputum, No wheezing GI: No nausea, No vomiting, No diarrhea, Pain, No melena, No hematochezia, No constipation, No hematemesis G/U: No dysuria, No frequency, No hematuria Musculoskeletal: No bone or joint pain, No back pain, No muscle pain Endocrine: No polyuria, No polydipsia Psychiatric: No prior psych history, No depression, No anxiety, No suicidal ideation, No homicidal ideation, No auditory hallucination, No visual hallucination Hematopoietic: No bruising, No lymphadenopathy Allergic/Immuno: No urticaria, No angioedema Neurological: No syncope, No focal symptoms, No weakness, No paresthesia, No headache, No seizure, No dizziness, No confusion, No vertigo ED Past Medical History - Past Medical History Obtainable: Yes Past Medical History: HTN, Dyslipidemia, PUD/GERD, Other (Cirrhosis) Family History: HTN Social History: Smoker, Alcohol, No Drug Use, Single Surgical History: None Psychiatricy History: None Medication: Reviewed Family Medical History - Family Member Mother History Unknown: Yes Ethnicity: Living Status: Unknown ED Physical Exam - Physical Examination General/Constitutional: Awake, Well-developed, well-nourished, Alert, No distress, GCS 15, Non-toxic appearing, Ambulatory Head: Atraumatic Eyes: Lids, conjuctiva normal, PERRL, EOMI Other Eyes comments:: + Scleral Icterus Skin: Nl inspection, No rash, No skin lesions, No ecchymosis, Well hydrated, No lymphadenopathy Other Skin comments:: + Jaundice ENMT: External ears, nose nl, TM canals nl, Nasal exam nl, Lips, teeth, gums nl , Oropharynx nl, Tonsils nl Neck: Nontender, Full ROM w/o pain, No JVD, No nuchal rigidity, No bruit, No mass, No stridor Respiratory: Nl effort/Exclusion, Clear to Auscultation, No Wheeze/Rhonchi/Rales Cardio Vascular: RRR, No murmur, gallop, rubs, NL S1 S2, Carotid/Femoral/Distal pulses equal bilaterally GI: No tenderness/rebounding/guarding, No organomegaly, No hernia, Normal BS's, Nondistended, No mass/bruits, No McBurney tenderness, Rectum exam nl Other GI comments:: no pulsatile masses; + Ascites : No CVA tenderness Extremities: No tenderness or effusion, Full ROM, normal strength in all extremities, Normal digits & nails Other Extremities comments:: + PTE Neuro/Psych: Alert/oriented, DTR's symmetric, Normal sensory exam, Normal motor strength, Judgement/insight normal, Mood normal, Normal gait, No focal deficits Misc: Normal back, No paraspinal tenderness ED Labs/Radiology/EKG Results - Lab Results Results: Laboratory Tests 09/17/18 09/17/18 09/17/18 10:25 10:25 10:25 WBC 6.7 RBC 4.10 L Hgb 12.5 Hct 36.9 L MCV 90.0 MCH 30.4 H MCHC Differential 33.8 RDW 19.8 Plt Count 45 L MPV 9.1 Add Manual Diff YES Band Neutrophils % 3 Neutrophils (Manual) 75 Lymphocytes 12 L Monocytes 9 Eosinophils 1 Basophils 0 Platelet Estimate DECREASED PLATELETS PT 18.2 H INR 1.80 H Sodium 133 L Potassium 3.0 L Chloride 104 Carbon Dioxide 22.4 Anion Gap 9.6 BUN 10 Creatinine 0.5 L Est GFR ( Amer) > 60.0 Est GFR (Non-Af Amer) > 60.0 BUN/Creatinine Ratio 20.0 Glucose 148 H Calcium 8.1 L Total Bilirubin 4.7 H Direct Bilirubin 2.35 H AST 70 H ALT 44 Alkaline Phosphatase 180 H Creatine Kinase 145 Troponin I B-Natriuretic Peptide Total Protein 6.2 Albumin 2.3 L Globulin 3.9 Albumin/Globulin Ratio 0.6 L Triglycerides 91 Cholesterol 98 LDL Cholesterol Direct 67 L HDL Cholesterol 9 L Amylase 46 Lipase 91 H Urine Source Urine Color Urine Clarity Urine pH Ur Specific [place] Urine Protein Urine Glucose (UA) Urine Ketones Urine Blood Urine Nitrate Urine Bilirubin Urine Ictotest Urine Urobilinogen Ur Leukocyte Esterase Urine RBC Urine WBC Ur Epithelial Cells Calcium Oxalate Crystal Urine Bacteria Ethyl Alcohol < 10 09/17/18 09/17/18 09/17/18 10:25 10:25 11:00 WBC RBC Hgb Hct MCV MCH MCHC Differential RDW Plt Count MPV Add Manual Diff Band Neutrophils % Neutrophils (Manual) Lymphocytes Monocytes Eosinophils Basophils Platelet Estimate PT INR Sodium Potassium Chloride Carbon Dioxide Anion Gap BUN Creatinine Est GFR ( Amer) Est GFR (Non-Af Amer) BUN/Creatinine Ratio Glucose Calcium Total Bilirubin Direct Bilirubin AST ALT Alkaline Phosphatase Creatine Kinase Troponin I 0.01 B-Natriuretic Peptide 13.4 Total Protein Albumin Globulin Albumin/Globulin Ratio Triglycerides Cholesterol LDL Cholesterol Direct HDL Cholesterol Amylase Lipase Urine Source CLEAN C Urine Color ORANGE Urine Clarity CLEAR Urine pH 6.0 Ur Specific [place] 1.025 Urine Protein NEGATIVE Urine Glucose (UA) NEGATIVE Urine Ketones NEGATIVE Urine Blood NEGATIVE Urine Nitrate NEGATIVE Urine Bilirubin MODERATE H Urine Ictotest POSITIVE H Urine Urobilinogen 4.0 H Ur Leukocyte Esterase NEGATIVE Urine RBC 0-2 H Urine WBC 0-2 Ur Epithelial Cells OCCASIONAL Calcium Oxalate Crystal FEW Urine Bacteria NONE SEEN Ethyl Alcohol Comments:: Reviewed - Radiology Results Comments:: + right pleural effusion; + Cholelithiasis; + Cirrhosis; NAD - EKG Interpretations EKG Time:: 10:42 Rate & Rhythm: 85; NSR Comments:: old IWMI; non-specific st-t changes ED Septic Shock - . Is Septic Shock (SBP<90, OR Lactate>4 mmol\L) present?: No - <6hrs of presentation: Vital Signs: Vital Signs - 8 hr 09/17/18 09/17/18 09:46 11:31 Temp 98 F 98.4 F HR 92 81 RR 18 17 BP 131/54 122/63 O2 Sat % 98 98 ED Reassessment (Disposition) - Reassessment Reassessment Condition:: Improved - Diagnosis Diagnosis:: Abdominal Pain; Abdominal Distention; Ascites; Jaundice; Elevated LFTs; Pleural Effusion; Cholelithiasis; Cirrhosis; Alcoholic Liver Disease; Coagulopathy; Hypokalemia; Thrombocytopenia; Liver Failure - Aftercare/Follow up Instructions Aftercare/Follow-Up Instructions:: Counseled pt regarding lab results/diagnosis & need follow up, Counseled pt & family regarding lab results/diagnosis & need follow up - Patient Disposition Discharge/Transfer:: Acute Care w/in this hosp Accepting Physician:: Dr. Cole Beyer Time Called:: 1130 Time Responded:: 11:30 Admitted to:: Telemetry Spoke to:: Dr. Cole Beyer Admitting Medical Physician:: Dr. Coel Beyer Condition at Disposition:: Stable, Improved
[2018-09-17] MEDS ORDERED: Influenza Vaccine (5 yr & older) 0.5 ml Syr IM ONE (14:23)
--- NOTE | 2018-09-17 16:02 | Consultation ---
DATE OF CONSULTATION: 09/17/2018 REQUESTING PHYSICIAN: Dr. Kevin Beyer. REASON FOR CONSULTATION: Abdominal distention. HISTORY OF PRESENT ILLNESS: This is a 47-year-old male with history of mild obesity and alcoholism who last drank heavily about a year ago and has been drinking intermittently and to a lesser extent over the last year. Last drink was at [place] time about 2 weeks ago. The patient was admitted for a 1-month history of progressively increasing abdominal girth. He had some mild shortness of breath. He came to the ER. A CT was done, which showed right-sided pleural effusion and mild ascites. The radiologist felt that there is not enough ascites to do paracentesis. The patient denies any nausea, vomiting, diarrhea, constipation, or overt GI bleeding. He had a similar episode of distention about a year ago when he was heavily drinking and he was told to stop drinking and was given medications to help decrease his ascites. He has never had a previous paracentesis. PAST MEDICAL HISTORY: As above. PAST SURGICAL HISTORY: Negative. MEDICATIONS: Here potassium rider x 1. ALLERGIES: No known drug allergies. SOCIAL HISTORY: No tobacco, positive alcohol, was heavy up to a year ago, drinking up to 24 beer cans a week. More recently drinks up to 3 beers in a week. FAMILY HISTORY: Noncontributory. REVIEW OF SYSTEMS: Negative. PHYSICAL EXAMINATION: VITAL SIGNS: Temperature of 98.4, blood pressure is 122/63, pulse of 81, respirations 17, O2 sat 98%. GENERAL: The patient is well-developed, well-nourished male who is in no acute distress. HEENT: Sclerae nonicteric. Oropharynx is clear. CARDIOVASCULAR: Regular rate and rhythm. LUNGS: Clear to auscultation bilaterally. ABDOMEN: Soft, moderate distention, positive fluid wave, positive umbilical hernia, which is reducible. EXTREMITIES: No clubbing, cyanosis or edema. RECTAL: Deferred. LABORATORY DATA AND IMAGING: WBC 6.7, hemoglobin 12.5, platelet count is 45. INR is 1.8. Sodium 133, potassium 3.0, being repleted, creatinine 0.5, bilirubin 4.7, AST 70, ALT 44, alkaline phosphatase 180. Ammonia 43, triglycerides 91. Amylase normal, lipase mildly elevated to 91. Urinalysis shows no protein. IMPRESSION: 1. Abdominal distention, likely from a combination of ascites and subcutaneous edema/anasarca from alcoholic cirrhosis. 2. Decompensated alcoholic cirrhosis. 3. Right-sided pleural effusion, likely from fluid overload. 4. Thrombocytopenia. 5. Coagulopathy. 6. Elevated liver enzymes, likely from alcoholic cirrhosis. RECOMMENDATIONS: 1. Check abdominal ultrasound to evaluate for ascites. 2. Consider paracentesis by ultrasound guidance if sufficient ascites is present. 3. Diuresis as tolerated by sodium and creatinine. 4. A 2 g sodium diet. 5. Alcohol cessation strongly advised. 6. Antianxiety medications as needed. 7. Monitor labs and replete electrolytes as deemed necessary. Thank you, Dr. Kevin Beyer, for involving us in the care of your patient. If you have any further questions, please call us. [facility]# [id number] [id number]
--- NOTE | 2018-09-17 16:20 | History & Physical ---
ADMIT DATE: 09/17/2018 REASON FOR ADMISSION: He has decompensated liver cirrhosis with obstructive jaundice, hypokalemia, alcoholism. HISTORY OF PRESENT ILLNESS: The patient is a 47-year-old gentleman with chronic alcoholism with known liver cirrhosis, presented with 5-day history of increasing abdominal girth. The patient denies any headache, vision problems, swallowing problem. No fever, no chills, no chest pain. No cough or sputum production. Denies any nausea or vomiting, no diarrhea, no melena. No UTI symptomatology. No hematuria. The patient denies any abdominal pain. PAST MEDICAL HISTORY: Chronic alcoholism. MEDICATIONS: None. SOCIAL HISTORY: Alcoholism, though alcohol level was negative in laboratory in the Emergency Room. Denies smoking or street drug abuse. REVIEW OF SYSTEMS: The patient had a previous abdominal paracentesis done in February last year. PHYSICAL EXAMINATION: VITAL SIGNS: Height 1.73 meter, weight 108 kg, BMI 36.5. Temperature 98, pulse 72, respiratory rate 18, blood pressure 127/58, oxygen saturation 98% on room air. HEENT: Positive for icterus, no pallor. Mucosa is moist. No oral candidiasis. No petechia. NECK: Supple. No JVD, bruit, or lymphadenopathy, but neck is short and thick. LUNGS: Clear. Decreased air entry, but no rales, rhonchi. CARDIOVASCULAR: S1, S2 normal limit. ABDOMEN: Umbilical hernia noted. Abdomen is distended, but gaseous. No free fluid or thrill noted on exam. No hepatosplenomegaly. Bowel sound is active. No CVA tenderness. X-ray exam normal. EXTREMITIES: 2+ edema noted. Chronic venous stasis changes noted. LABORATORY TESTS: Significant for potassium level is 3.0. Sodium 133, chloride 104, bicarb 22, BUN 10, creatinine 0.5 and ammonia level is 43, CPK 145, troponin negative. BNP 13. Albumin 2.3. Cholesterol 98, triglycerides 91, HDL 9, LDL 67, amylase 46, lipase 91, AST 70 elevated, ALT 44 within normal limit. Total bilirubin 4.7, direct bilirubin 2.35, calcium 8.21, glucose 148. Urinalysis: pH 6.0, specific gravity 1.025, bilirubin moderate, and wbc's 0-2. Alcohol level not detectable. CT abdomen revealed minimal ascites, not enough for abdominal paracentesis per Dr. Krishnamurthy, finding consistent with liver cirrhosis with decrease in liver size with irregular contour, splenomegaly present. No change noted from 02/18/2018. There is also gallbladder stone present. ASSESSMENT AND PLAN: 1. Hypokalemia. We will give K-rider and p.o. supplement for potassium. 2. Chronic alcoholism. Advised the patient to avoid alcohol altogether, join AA meeting and above communicated via triage nurse. 3. Liver cirrhosis secondary to alcohol abuse with minimal ascites, not enough to drain. Case discussed with Dr. Richard who was also at bedside and ultrasound abdomen ordered. 4. Obstructive jaundice secondary to liver cirrhosis. Monitor CMP in the morning and give diuretic and go from there. 5. Dependent edema from chronic venous stasis. Elevate the legs and start patient on diuretics and monitor it closely and go from there. 6. Umbilical hernia supportive care at present time. Advised the patient to follow up outpatient with surgeon for further care. 7. Gallstone currently asymptomatic. We will observe at present time. JOB# [id number]
[2018-09-17] MEDS: Lactulose 10 Gm/15 mL 30mL UDC PO SCH (16:25)
[2018-09-17] MEDS: Potassium Chloride 20 mEq ER Tab PO SCH (16:25)
[2018-09-17 16:35] VITALS: BP 127/58
[2018-09-18 05:47] LABS: % EOSINOPHILS 3.5 % (0.0-5.0); % LYMPHOCYTES 21.1 % (20.0-50.0); % MONOCYTES 8.9 % (2.0-10.0); % NEUTROPHILS 66.5 % (40.0-80.0); EOSINOPHILE ABSOLUTE 0.2 Th/cmm (0.1-0.4); HEMATOCRIT 33.8 % (41.0-60); HEMOGLOBIN 11.5 gm/dL (12-16); LYMPHOCYTE ABSOLUTE 0.9 Th/cmm (1.5-3.0); MEAN CELL VOLUME 90.1 fl (80-99); MEAN CORPUSCULAR HEMOGLOBIN 30.5 pg (26.0-30.0); MEAN CORPUSCULAR HGB CONC 33.9 pg (28.0-36.0); MEAN PLATELET VOLUME 10.1 fl; MONOCYTE ABSOLUTE 0.4 Th/cmm (0.3-1.0); NEUTROPHILE ABSOLUTE 2.9 Th/cmm (1.8-8.0); PLATELET COUNT 36 Th/cmm (150-400); RED BLOOD COUNT 3.75 Mil/cmm (4.30-5.70); RED CELL DISTRIBUTION WIDTH 19.6 % (11.5-20.0); WHITE BLOOD COUNT 4.4 Th/cmm (4.8-10.8)
[2018-09-18 06:06] LABS: ALB/GLOB RATIO 0.5 (1.0-1.8); ALBUMIN 1.9 gm/dL (4.2-5.5); ALKALINE PHOSPHATASE 131 U/L (34-104); ANION GAP 9.7 (7.0-16.0); BILIRUBIN,TOTAL 4.5 mg/dL (0.3-1.0); BUN - UREA NITROGEN 9 mg/dL (7-25); CALCIUM SERUM 7.8 mg/dL (8.6-10.3); CARBON DIOXIDE 22.8 mEq/L (21.0-31.0); CHLORIDE 107 mEq/L (98-107); CREATININE - SERUM 0.5 mg/dL (0.7-1.3); GFR AFRICAN-AMERICAN > 60.0 ml/min (>90); GFR NON AFRICAN-AMERICAN > 60.0 ml/min; GLUCOSE 100 mg/dL (70-105); LIPASE 68 U/L (11-82); POTASSIUM SERUM 3.5 mEq/L (3.5-5.1); SGOT 66 U/L (13-39); SGPT/ALT 42 U/L (7-52); SODIUM SERUM 136 mEq/L (136-145); TOTAL PROTEIN,SERUM 5.5 gm/dL (6.0-8.3)
[2018-09-18] MEDS: Lactulose 10 Gm/15 mL 30mL UDC PO SCH (08:33)
[2018-09-18] MEDS: Potassium Chloride 20 mEq ER Tab PO SCH (08:33)
--- NOTE | 2018-09-18 09:04 | Diagnostic Imaging Report ---
Ultrasound abdomen HISTORY: Cirrhosis, rule out mass, assess for ascites COMPARISON: CT abdomen and pelvis performed on 09/17/2018 at ultrasound limited on 02/22/2018 Technique: Sonography of the abdomen was performed in multiple planes. Findings: The liver demonstrates a coarsened heterogeneous echotexture and measures 16.4 cm. No discrete mass lesions identified. There is areas of mild gallbladder wall thickening. Note that small gallstones were seen on previous CT examination on 09/17/2018. They may be in along the gallbladder wall border. The common bile duct was suboptimally visualized. The visualized common bile duct measures up to 4 mm. Assessment of wall pancreas is limited due to bowel gas. The right kidney measures 12.7 x 7.9 cm. The left kidney measures 14.2 x 4.6 cm. There is poor visualization of the renal margins. No obvious focal lesions or hydronephrosis. The spleen is enlarged measuring 19.4 cm. Small amount of abdominal ascites is noted. A right pleural effusion is also noted probable debris. IMPRESSION: Small amount of abdominal ascites. Heterogeneous coarsened liver which is probably related to hepatocellular disease and cirrhotic changes. No discrete mass lesion was identified. Slight areas of gallbladder wall thickening. The previous gallstone is seen on previous CT examination on 09/17/2018 are not wall identified, however, they may be along the wall the gallbladder. If necessary nuclear medicine HIDA scan may also be obtained for further assessment Marked splenomegaly. Mild increased size of the kidneys left larger right. No evidence of hydronephrosis. Right pleural effusion with internal echoes which may be due to debris.
--- NOTE | 2018-09-18 09:14 | GI Progress Note ---
Subjective - Review of Systems Service Date: 09/18/18 Subjective: FEELS BETTER. ADDISON DIET. Objective - Results Result Diagrams: 09/18/18 05:10 09/18/18 05:10 Recent Labs: Laboratory Last Values WBC 4.4 Th/cmm (4.8-10.8) L 09/18/18 05:10 RBC 3.75 Mil/cmm (4.30-5.70) L 09/18/18 05:10 Hgb 11.5 gm/dL (12-16) L 09/18/18 05:10 Hct 33.8 % (41.0-60) L 09/18/18 05:10 MCV 90.1 fl (80-99) 09/18/18 05:10 MCH 30.5 pg (26.0-30.0) H 09/18/18 05:10 MCHC Differential 33.9 pg (28.0-36.0) 09/18/18 05:10 RDW 19.6 % (11.5-20.0) 09/18/18 05:10 Plt Count 36 Th/cmm (150-400) L 09/18/18 05:10 MPV 10.1 fl 09/18/18 05:10 Add Manual Diff YES 09/17/18 10:25 Neutrophils % 66.5 % (40.0-80.0) 09/18/18 05:10 Band Neutrophils % 3 % (0-10) 09/17/18 10:25 Lymphocytes % 21.1 % (20.0-50.0) 09/18/18 05:10 Monocytes % 8.9 % (2.0-10.0) 09/18/18 05:10 Eosinophils % 3.5 % (0.0-5.0) 09/18/18 05:10 Basophils % 0.0 % (0.0-2.0) 09/18/18 05:10 Neutrophils (Manual) 75 % (40-80) 09/17/18 10:25 Lymphocytes 12 % (20-50) L 09/17/18 10:25 Monocytes 9 % (2-10) 09/17/18 10:25 Eosinophils 1 % (0-5) 09/17/18 10:25 Basophils 0 % (0-3) 09/17/18 10:25 Platelet Estimate DECREASED PLATELETS (NORMAL) 09/17/18 10:25 PT 18.2 SECONDS (9.5-11.5) H 09/17/18 10:25 INR 1.80 (0.5-1.4) H 09/17/18 10:25 Sodium 136 mEq/L (136-145) 09/18/18 05:10 Potassium 3.5 mEq/L (3.5-5.1) 09/18/18 05:10 Chloride 107 mEq/L (98-107) 09/18/18 05:10 Carbon Dioxide 22.8 mEq/L (21.0-31.0) 09/18/18 05:10 Anion Gap 9.7 (7.0-16.0) 09/18/18 05:10 BUN 9 mg/dL (7-25) 09/18/18 05:10 Creatinine 0.5 mg/dL (0.7-1.3) L 09/18/18 05:10 Est GFR ( Amer) > 60.0 ml/min (>90) 09/18/18 05:10 Est GFR (Non-Af Amer) > 60.0 ml/min 09/18/18 05:10 BUN/Creatinine Ratio 18.0 09/18/18 05:10 Glucose 100 mg/dL (70-105) 09/18/18 05:10 POC Glucose 96 MG/DL (70 - 105) 09/17/18 14:02 Calcium 7.8 mg/dL (8.6-10.3) L 09/18/18 05:10 Total Bilirubin 4.5 mg/dL (0.3-1.0) H 09/18/18 05:10 Direct Bilirubin 2.35 mg/dL (0.0-0.2) H 09/17/18 10:25 AST 66 U/L (13-39) H 09/18/18 05:10 ALT 42 U/L (7-52) 09/18/18 05:10 Alkaline Phosphatase 131 U/L (34-104) H 09/18/18 05:10 Ammonia 43 umol/L (16-53) 09/17/18 12:00 Creatine Kinase 145 U/L (30-223) 09/17/18 10:25 Troponin I 0.01 ng/mL (0.01-0.05) 09/17/18 10:25 B-Natriuretic Peptide 13.4 pg/mL (5.0-100.0) 09/17/18 10:25 Total Protein 5.5 gm/dL (6.0-8.3) L 09/18/18 05:10 Albumin 1.9 gm/dL (4.2-5.5) L 09/18/18 05:10 Globulin 3.6 gm/dL 09/18/18 05:10 Albumin/Globulin Ratio 0.5 (1.0-1.8) L 09/18/18 05:10 Triglycerides 91 mg/dL (<150) 09/17/18 10:25 Cholesterol 98 mg/dL (<200) 09/17/18 10:25 LDL Cholesterol Direct 67 mg/dL (75-193) L 09/17/18 10:25 HDL Cholesterol 9 mg/dL (23-92) L 09/17/18 10:25 Amylase 46 U/L (29-103) 09/17/18 10:25 Lipase 68 U/L (11-82) 09/18/18 05:10 Urine Source CLEAN C 09/17/18 11:00 Urine Color ORANGE 09/17/18 11:00 Urine Clarity CLEAR (CLEAR) 09/17/18 11:00 Urine pH 6.0 (4.6 - 8.0) 09/17/18 11:00 Ur Specific [place] 1.025 (1.005-1.030) 09/17/18 11:00 Urine Protein NEGATIVE mg/dL (NEGATIVE) 09/17/18 11:00 Urine Glucose (UA) NEGATIVE mg/dL (NEGATIVE) 09/17/18 11:00 Urine Ketones NEGATIVE mg/dL (NEGATIVE) 09/17/18 11:00 Urine Blood NEGATIVE (NEGATIVE) 09/17/18 11:00 Urine Nitrate NEGATIVE (NEGATIVE) 09/17/18 11:00 Urine Bilirubin MODERATE (NEGATIVE) H 09/17/18 11:00 Urine Ictotest POSITIVE (NEGATIVE) H 09/17/18 11:00 Urine Urobilinogen 4.0 E.U./dL (0.2 - 1.0) H 09/17/18 11:00 Ur Leukocyte Esterase NEGATIVE (NEGATIVE) 09/17/18 11:00 Urine RBC 0-2 /hpf (0-5) H 09/17/18 11:00 Urine WBC 0-2 /hpf (0-5) 09/17/18 11:00 Ur Epithelial Cells OCCASIONAL /lpf (FEW) 09/17/18 11:00 Calcium Oxalate Crystal FEW /hpf 09/17/18 11:00 Urine Bacteria NONE SEEN /hpf (NONE SEEN) 09/17/18 11:00 Ethyl Alcohol < 10 mg/dL (0-10) 09/17/18 10:25 - Physical Exam Vitals and I&O: Vital Signs Temp 98.5 F 09/18/18 07:28 Pulse 82 09/18/18 08:33 Resp 18 09/18/18 08:00 BP 125/64 09/18/18 08:33 Pulse Ox 95 09/18/18 07:28 Intake & Output 09/17/18 09/18/18 09/18/18 18:59 06:59 18:59 Intake Total 400 300 Output Total 50 Balance 350 300 Weight (lbs) 117.934 kg 117.962 kg Intake: Oral 400 300 Output: Urine 50 Other: # Voids 2 3 # Bowel Movements 0 2 Weight Source Bedscale Bedscale Active Medications: Current Medications Furosemide (Lasix) 40 mg PO DAILY [facility] Stop: 11/16/18 14:14 Last Admin: 09/18/18 08:33 Dose: 40 mg Lactulose (Cephulac) 15 gm PO DAILY [facility] Stop: 11/16/18 14:44 Last Admin: 09/18/18 08:33 Dose: 15 gm Potassium Chloride (Klor-Con) 20 meq PO DAILY [facility] Stop: 11/16/18 14:29 Last Admin: 09/18/18 08:33 Dose: 20 meq Spironolactone (Aldactone) 100 mg PO DAILY [facility] Stop: 11/16/18 14:14 Last Admin: 09/18/18 08:33 Dose: 100 mg General: Alert HEENT: Atraumatic Neck: Supple Cardiovascular: Regular rate Lungs: Clear to auscultation Abdomen: Bowel sounds, Soft, Distended (LESS), no Tender Assessment/Plan - Problem List Patient Problems: All Active Problems ABDOMINAL DISTENTION (Acute) - Assessment Assessment: IMPRESSION: 1. ALCOHOL CIRRHOSIS. 2. ABD DISTENSION/ANASARCA/PERIPH EDEMA. 3. PANCYTOPENIA, DUE TO HYPERSPLENISM. 4. COAGULOPATHY. RECS: 1. LASIX AND ALDACTONE. 2. PARACENTESIS NOT FEASIBLE DUE TO INSUFFICIENT ASCITES. 3. 2 GM NA DIET. 4. ALCOHOL CESSATION STRICT - REMINDED. GI LICONA STABLE WITH OUTPT F/U.
--- NOTE | 2018-09-18 16:23 | Discharge Summary ---
DATE OF DISCHARGE: 09/18/2018 FINAL DIAGNOSES: 1. Alcohol liver disease with coagulopathy and minimal ascites, unable to drain it. 2. Hypokalemia, now resolved. Potassium was 3, now 3.5. 3. Chronic alcoholism. Advised the patient to join AA meeting and avoid alcohol altogether. 4. Obstructive jaundice secondary to alcohol liver cirrhosis. 5. Chronic venous stasis with the left side more than right lower extremities edema. Elevate the lower extremities and local skin care. 6. Umbilical hernia, currently nonobstructed. Advised the patient to follow up on an outpatient basis with Surgery. 7. Gallstone, currently asymptomatic. 8. Normochromic normocytic slight anemia. 9. Coagulopathy due to the liver cirrhosis. 10. Morbid obesity with BMI of 39.5. HOSPITAL COURSE/IMPORTANT LABS: A 47-year-old gentleman, chronic alcoholic, came to the Emergency Room with increasing abdominal girth. The patient admitted by Emergency Room doctor for abdominal paracentesis. A CT scan revealed small amount of ascites. Ultrasound of the abdomen carried out, which also revealed small amount of ascitic fluid, not adequate or enough to drain it out. The patient also had low potassium of 3, so potassium replacement done and a repeat potassium level is 3.5. The patient had hemoglobin of 12.5 on admission, repeat one is 11.5. Protime is elevated at 18 and INR of 1.8. The patient's total bilirubin on admission 4.7, repeat one is 4.5. AST 70, now is 66. ALT normal at 44 and 42 respectively. Ammonia level 43. CPK 145. Troponin negative. BNP normal at 13 and albumin 1.9. Cholesterol 98, HDL 9, LDL 67, triglyceride 91, amylase 46 and lipase 91 on admission and repeat one is 68. Urinalysis revealed bilirubin moderate and wbc's 0-2. Serum alcohol level not detected. Advised the patient to join AA meeting. Follow up with primary care physician and a prescription for Aldactone 50 mg twice a day, Lasix 20 mg twice a day, KCl 20 mEq once a day and lactulose 15 grams once a day given. Advised the patient to reduce the weight and follow up with primary care physician and monitor the CMP panel and a CBC carefully and go from there. The patient also has thrombocytopenia with platelet count of 45 and 36 respectively due to the chronic alcohol liver disease. Currently, no sign of bleeding and umbilical hernia will be followed outpatient so as the gallstone as asymptomatic. JOB# [id number]
[2018-09-19 11:13] LABS: FERRITIN 33 ng/mL (30-400); HEP A AB IGM Negative (Negative); HEP B CORE IGM Negative (Negative); HEP B SURFACE AG QL Negative (Negative); HEP C ANTIBODY <0.1 s/co ratio (0.0-0.9)
== END 2018-09-18 14:50 | disposition home or self-care (01) | DRG 280 ==
LOC: ER 09:39 → MSI 12:30
PROVIDERS: ADMIT Internal Medicine; ATTEND Internal Medicine
DX: K70.31 Alcoholic cirrhosis of liver with ascites (principal); J90 Pleural effusion, not elsewhere classified; D61.818 Other pancytopenia; K72.90 Hepatic failure, unspecified without coma; D68.9 Coagulation defect, unspecified; D69.6 Thrombocytopenia, unspecified; E66.01 Morbid (severe) obesity due to excess calories; E87.6 Hypokalemia; F10.20 Alcohol dependence, uncomplicated; Y90.0 Blood alcohol level of less than 20 mg/100 ml; I87.8 Other specified disorders of veins; K80.80 Other cholelithiasis without obstruction; K42.9 Umbilical hernia without obstruction or gangrene; I10 Essential (primary) hypertension; E78.5 Hyperlipidemia, unspecified; K21.9 Gastro-esophageal reflux disease without esophagitis; F17.210 Nicotine dependence, cigarettes, uncomplicated; D73.1 Hypersplenism; Z68.39 Body mass index [BMI] 39.0-39.9, adult; Z82.49 Family history of ischemic heart disease and other diseases of the circulatory system
CPT/HCPCS: 36415-UA; 76700-TC; 80053-TC; 80061-TC; 80074-90; 80320-TC; 81001-TC; 82140-TC; 82150-TC; 82248-TC; 82550-TC; 82728-90; 82948-90; 83690-TC; 83880-TC; 84484-TC; 85007-TC; 85025-TC; 85610-TC; 93005; 94760

== ENCOUNTER 2018-09-27 11:00 | Inpatient (IN) | payer MEDICAID ==
--- NOTE | 2018-09-27 11:42 | ED Physician Chart ---
ED Chief Complaint/HPI - Patient Information Date Seen:: 09/27/18 Time Seen:: 11:37 Chief Complaint:: Weakness, abominal distention, N/V History of Present Illness:: 47 yo male with history of alcoholic liver cirrhosis and was recently hospitalized for ascites without paracentesis due to minimal amount of ascites 10 days ago. Recently, patient had weakness, abdominal distension and shortness of breath for 3 days. Patient had nausea and vomiting this morning. Denied fever or chills. Patient presented to ER due to worsening weakness and shortness of breath. On arrival, patient's temperature was 99.1F. Allergies:: Allergies Allergy/AdvReac Type Severity Reaction Status Date / Time No Known Allergies Allergy Verified 02/18/18 19:06 Vitals:: Vital Signs - 8 hr 09/27/18 11:10 Temp 99.1 F HR 117 RR 20 BP 73/42 O2 Sat % 97 ED Review of Systems - Review of Systems General/Constitutional: No fever, No chills, Weakness Skin: No rash, Other (jaundice) Head: No headache Eyes: No pain ENT: No nasal drainage Neck: No neck pain Cardio Vascular: No chest pain Pulmonary: SOB GI: Nausea, Vomiting Musculoskeletal: No bone or joint pain Psychiatric: No prior psych history Hematopoietic: No bruising Neurological: No focal symptoms ED Past Medical History - Past Medical History Past Medical History: HTN, Other (liver cirrhosis) Social History: Non Smoker (former smoker), Alcohol (quit 1 month ago), No Drug Use Surgical History: None Family Medical History - Family Member Mother History Unknown: Yes Ethnicity: Living Status: Unknown ED Physical Exam - Physical Examination General/Constitutional: Awake, Alert Head: Atraumatic Eyes: PERRL, EOMI Other Eyes comments:: mild scleral icterus Other Skin comments:: Jaundice ENMT: Nasal exam nl Neck: No nuchal rigidity Respiratory: No Wheeze/Rhonchi/Rales Other Respiratory comments:: Diminished right lower lung sound Cardio Vascular: RRR, No murmur, gallop, rubs, NL S1 S2 Other GI comments:: Significant abdominal distention and tenderness. Umbilical hernia 5cm in size, non-tender Other Extremities comments:: bilateral pedal 1+ edema Neuro/Psych: No focal deficits ED Labs/Radiology/EKG Results - Lab Results Results: Laboratory Last Values WBC 7.8 Th/cmm (4.8-10.8) 09/28/18 06:38 RBC 3.04 Mil/cmm (4.30-5.70) L 09/28/18 06:38 Hgb 9.7 gm/dL (12-16) L 09/28/18 06:38 Hct 27.9 % (41.0-60) L 09/28/18 06:38 MCV 91.9 fl (80-99) 09/28/18 06:38 MCH 31.9 pg (26.0-30.0) H 09/28/18 06:38 MCHC Differential 34.7 pg (28.0-36.0) 09/28/18 06:38 RDW 18.9 % (11.5-20.0) 09/28/18 06:38 Plt Count 20 Th/cmm (150-400) L* D 09/28/18 06:38 MPV 10.5 fl 09/28/18 06:38 Add Manual Diff YES 09/28/18 06:38 Band Neutrophils % 26 % (0-10) H 09/28/18 06:38 Neutrophils (Manual) 65 % (40-80) 09/28/18 06:38 Lymphocytes 2 % (20-50) L 09/28/18 06:38 Monocytes 5 % (2-10) 09/28/18 06:38 Eosinophils 0 % (0-5) 09/27/18 11:30 Basophils 0 % (0-3) 09/27/18 11:30 Metamyelocytes 2 % (0-0) H 09/28/18 06:38 Platelet Estimate DECREASED PLATELETS (NORMAL) 09/28/18 06:38 PT 17.7 SECONDS (9.5-11.5) H 09/27/18 11:30 INR 1.75 (0.5-1.4) H 09/27/18 11:30 PTT (Actin FS) 29.7 SECONDS (26.0-38.0) 09/27/18 11:30 Sodium 127 mEq/L (136-145) L 09/28/18 06:38 Potassium 4.6 mEq/L (3.5-5.1) 09/28/18 11:26 Chloride 99 mEq/L (98-107) 09/28/18 06:38 Carbon Dioxide 15.5 mEq/L (21.0-31.0) L 09/28/18 06:38 Anion Gap 17.9 (7.0-16.0) H 09/28/18 06:38 BUN 33 mg/dL (7-25) H 09/28/18 06:38 Creatinine 0.9 mg/dL (0.7-1.3) 09/28/18 06:38 Est GFR ( Amer) > 60.0 ml/min (>90) 09/28/18 06:38 Est GFR (Non-Af Amer) > 60.0 ml/min 09/28/18 06:38 BUN/Creatinine Ratio 36.7 09/28/18 06:38 Glucose 121 mg/dL (70-105) H 09/28/18 06:38 POC Glucose 87 MG/DL (70 - 105) 09/27/18 17:54 Whole Bld Lactic Acid 4.90 mmol/L (0.60-1.99) H* 09/27/18 14:33 Calcium 7.7 mg/dL (8.6-10.3) L 09/28/18 06:38 Total Bilirubin 5.1 mg/dL (0.3-1.0) H 09/28/18 06:38 AST 153 U/L (13-39) H 09/28/18 06:38 ALT 70 U/L (7-52) H 09/28/18 06:38 Alkaline Phosphatase 60 U/L (34-104) 09/28/18 06:38 Ammonia 51 umol/L (16-53) 09/27/18 11:30 Troponin I 0.01 ng/mL (0.01-0.05) 09/27/18 11:30 B-Natriuretic Peptide 10.2 pg/mL (5.0-100.0) 09/27/18 11:30 Total Protein 4.7 gm/dL (6.0-8.3) L 09/28/18 06:38 Albumin 1.8 gm/dL (4.2-5.5) L 09/28/18 06:38 Globulin 2.9 gm/dL 09/28/18 06:38 Albumin/Globulin Ratio 0.6 (1.0-1.8) L 09/28/18 06:38 Lipase 38 U/L (11-82) 09/27/18 11:30 Urine Source MIDSTREAM 09/27/18 14:30 Urine Color ORANGE 09/27/18 14:30 Urine Clarity HAZY (CLEAR) 09/27/18 14:30 Urine pH 5.5 (4.6 - 8.0) 09/27/18 14:30 Ur Specific Floris 1.025 (1.005-1.030) 09/27/18 14:30 Urine Protein 100 mg/dL (NEGATIVE) H 09/27/18 14:30 Urine Glucose (UA) NEGATIVE mg/dL (NEGATIVE) 09/27/18 14:30 Urine Ketones TRACE mg/dL (NEGATIVE) 09/27/18 14:30 Urine Blood NEGATIVE (NEGATIVE) 09/27/18 14:30 Urine Nitrate NEGATIVE (NEGATIVE) 09/27/18 14:30 Urine Bilirubin MODERATE (NEGATIVE) H 09/27/18 14:30 Urine Ictotest NEGATIVE (NEGATIVE) 09/27/18 14:30 Urine Urobilinogen 1.0 E.U./dL (0.2 - 1.0) 09/27/18 14:30 Ur Leukocyte Esterase NEGATIVE (NEGATIVE) 09/27/18 14:30 Urine RBC 0-2 /hpf (0-5) H 09/27/18 14:30 Urine WBC 6-10 /hpf (0-5) 09/27/18 14:30 Ur Epithelial Cells FEW /lpf (FEW) 09/27/18 14:30 Urine Bacteria MANY /hpf (NONE SEEN) H 09/27/18 14:30 - Radiology Results Results: CXR: right pleural effusion Abdominal u/s: hepatosplenomegaly, cholelithiasis ED Assessment - Assessment General Assessment: Sepsis Bandemia Hypotension Right pleural effusion Ascites Hyponatremia Liver cirrhosis Hepatosplenomegaly Anemia, normocytic Thrombocytopenia Coagulopathy Jaundice Hypoalbuminemia Cholelithiasis Umbilical hernia Chronic alcoholism Assessment/Comments:: CBC, CMP, PT/PTT, Trop, lipase Lactic acid UA CXR, EKG Abdomen ultrasound NS IV at 75ml/h 25% Albumin 100ml Lasix 20mg IV Zosyn IV ED Septic Shock - . Is Septic Shock (SBP<90, OR Lactate>4 mmol\L) present?: No - <6hrs of presentation: Vital Signs: Vital Signs - 8 hr 09/27/18 11:10 Temp 99.1 F HR 117 RR 20 BP 73/42 O2 Sat % 97 ED Reassessment (Disposition) - Reassessment Reassessment:: Patient's temperature spiked to 100.7F, IV antibiotics was initiated. Patient felt significant SOB. Abdominal ultrasound showed moderate amount of right pleural effusion. Discussed with Dr. Ordonez and patient will be admitted for further management. Reassessment Condition:: Improved - Patient Disposition Discharge/Transfer:: Acute Care w/in this hosp Admitting Medical Physician:: Nikolay Ordonez
[2018-09-27 11:54] LABS: HEMATOCRIT 32.3 % (41.0-60); MEAN CELL VOLUME 90.8 fl (80-99); MEAN CORPUSCULAR HGB CONC 34.2 pg (28.0-36.0); MEAN PLATELET VOLUME 10.1 fl; RED BLOOD COUNT 3.55 Mil/cmm (4.30-5.70); RED CELL DISTRIBUTION WIDTH 18.8 % (11.5-20.0); WHITE BLOOD COUNT 7.1 Th/cmm (4.8-10.8)
[2018-09-27 11:59] LABS: PLATELET COUNT 31 Th/cmm (150-400)
[2018-09-27 12:12] LABS: INR 1.75 (0.5-1.4); PROTHROMBIN TIME (TEST) 17.7 SECONDS (9.5-11.5)
[2018-09-27] MEDS ORDERED: Sodium Chloride 0.9% 1,000 ML IV ONE (12:13)
[2018-09-27] MEDS ORDERED: Albumin 25% 25gm/100mL 25 GM/100 ML BTL IV ONE ×2 (12:18)
[2018-09-27 12:23] LABS: ALB/GLOB RATIO 0.6 (1.0-1.8); ALBUMIN 1.9 gm/dL (4.2-5.5); ALKALINE PHOSPHATASE 140 U/L (34-104); ANION GAP 11.6 (7.0-16.0); BILIRUBIN,TOTAL 4.5 mg/dL (0.3-1.0); BUN - UREA NITROGEN 19 mg/dL (7-25); CALCIUM SERUM 7.9 mg/dL (8.6-10.3); CHLORIDE 101 mEq/L (98-107); CREATININE - SERUM 0.8 mg/dL (0.7-1.3); GFR AFRICAN-AMERICAN > 60.0 ml/min (>90); GFR NON AFRICAN-AMERICAN > 60.0 ml/min; GLUCOSE 125 mg/dL (70-105); POTASSIUM SERUM 3.6 mEq/L (3.5-5.1); SGOT 76 U/L (13-39); SGPT/ALT 45 U/L (7-52); SODIUM SERUM 128 mEq/L (136-145); TOTAL PROTEIN,SERUM 5.3 gm/dL (6.0-8.3)
--- NOTE | 2018-09-27 13:02 | Diagnostic Imaging Report ---
Portable chest x-ray HISTORY: Shortness of breath The heart is enlarged. There is evidence for right pleural effusion which corresponds to changes noted on a prior CT scan of September 17, 2018. No definite acute pulmonary parenchymal processes. IMPRESSION: 1. Findings consistent with a right pleural effusion. This corresponds to previous noted findings on a CT scan of September 17, 2018. 2. Cardiomegaly
[2018-09-27 14:08] LABS: BAND NEUTROPHILE 17 % (0-10); NEUTROPHILS 73 % (40-80)
[2018-09-27 14:09] LABS: BASOPHIL 0 % (0-3); EOSINOPHIL 0 % (0-5); LYMPHOCYTE 8 % (20-50); MONOCYTE 2 % (2-10); PLATELET ESTIMATE DECREASED PLATELETS (NORMAL)
[2018-09-27] MEDS ORDERED: Piperacillin Sodium/Tazobact 3.375 gm Vial IV ONE (15:00)
[2018-09-27 16:01] LABS: URINE SOURCE MIDSTREAM
[2018-09-27 16:03] LABS: URINE BILIRUBIN MODERATE (NEGATIVE); URINE BLOOD NEGATIVE (NEGATIVE); URINE GLUCOSE (UA) NEGATIVE (NEGATIVE); URINE KETONE TRACE mg/dL (NEGATIVE); URINE LEUKOCYTE ESTERASE NEGATIVE (NEGATIVE); URINE NITRATE NEGATIVE (NEGATIVE); URINE PH 5.5 (4.6 - 8.0); URINE PROTEIN 100 mg/dL (NEGATIVE)
[2018-09-27 16:29] LABS: URINE CLARITY HAZY (CLEAR); URINE COLOR ORANGE; URINE MICROSCOPIC INDICATED? YES
[2018-09-27 16:33] LABS: URINE BACTERIA MANY /hpf (NONE SEEN); URINE EPITHELIAL CELLS FEW /lpf (FEW); URINE RBC 0-2 /hpf (0-5)
[2018-09-27 16:48] LABS: URINE ICTOTEST NEGATIVE (NEGATIVE)
[2018-09-27] MEDS ORDERED: Albuterol/Ipratropium Neb 3 ML AERS HHN PRN (18:41)
[2018-09-27 18:54] VITALS: BP 98/41
[2018-09-27] MEDS: Albuterol/Ipratropium Neb 3 ML AERS HHN SCH (19:48)
[2018-09-27] MEDS: Cefepime 1 GM in Sodium Chloride 0.9% 50 ML IV SCH (22:40)
[2018-09-28] MEDS: Albuterol/Ipratropium Neb 3 ML AERS HHN SCH ×4 (00:09→19:26)
[2018-09-28] MEDS: Cefepime 1 GM in Sodium Chloride 0.9% 50 ML IV SCH ×3 (04:43→20:27)
[2018-09-28 07:03] LABS: HEMATOCRIT 27.9 % (41.0-60); HEMOGLOBIN 9.7 gm/dL (12-16); MEAN CELL VOLUME 91.9 fl (80-99); MEAN CORPUSCULAR HEMOGLOBIN 31.9 pg (26.0-30.0); MEAN CORPUSCULAR HGB CONC 34.7 pg (28.0-36.0); MEAN PLATELET VOLUME 10.5 fl; RED BLOOD COUNT 3.04 Mil/cmm (4.30-5.70); RED CELL DISTRIBUTION WIDTH 18.9 % (11.5-20.0); WHITE BLOOD COUNT 7.8 Th/cmm (4.8-10.8)
[2018-09-28 07:22] LABS: PLATELET COUNT 20 Th/cmm (150-400)
[2018-09-28 07:23] LABS: ALB/GLOB RATIO 0.6 (1.0-1.8); ALBUMIN 1.8 gm/dL (4.2-5.5); ALKALINE PHOSPHATASE 60 U/L (34-104); ANION GAP 17.9 (7.0-16.0); BILIRUBIN,TOTAL 5.1 mg/dL (0.3-1.0); BUN - UREA NITROGEN 33 mg/dL (7-25); CALCIUM SERUM 7.7 mg/dL (8.6-10.3); CARBON DIOXIDE 15.5 mEq/L (21.0-31.0); CHLORIDE 99 mEq/L (98-107); CREATININE - SERUM 0.9 mg/dL (0.7-1.3); GFR AFRICAN-AMERICAN > 60.0 ml/min (>90); GFR NON AFRICAN-AMERICAN > 60.0 ml/min; GLUCOSE 121 mg/dL (70-105); POTASSIUM SERUM 5.4 mEq/L (3.5-5.1); SGOT 153 U/L (13-39); SGPT/ALT 70 U/L (7-52); SODIUM SERUM 127 mEq/L (136-145); TOTAL PROTEIN,SERUM 4.7 gm/dL (6.0-8.3)
[2018-09-28 08:06] LABS: LYMPHOCYTE 2 % (20-50); NEUTROPHILS 65 % (40-80)
[2018-09-28 08:09] LABS: METAMYELOCYTE 2 % (0-0)
[2018-09-28 08:10] LABS: BAND NEUTROPHILE 26 % (0-10); MONOCYTE 5 % (2-10)
[2018-09-28 08:11] LABS: PLATELET ESTIMATE DECREASED PLATELETS (NORMAL)
--- NOTE | 2018-09-28 09:31 | Diagnostic Imaging Report ---
Exam: CT examination of chest. HISTORY: Difficulty breathing Total DLP equals 324 CTDI equals 9.8 Findings: Multiple contiguous thin section of the chest were obtained from thoracic outlet to the upper abdomen without administration of contrast material therefore the study is limited The study demonstrates extensive right-sided pneumonia and effusion. There is evidence for left basal peribronchial infiltrate and small effusion. Mediastinal structures midline, the heart is not enlarged. Adenopathy is difficult to appreciated due to lack of contrast material. Bony structures demonstrate no evidence for lytic or blastic changes Incidentally noted the ascitic fluid in the abdomen and splenomegaly. Clinical correlation recommended. IMPRESSION: Extensive right-sided pneumonia and large effusion Small left lower lung pneumonia superimposed small effusion.
--- NOTE | 2018-09-28 09:56 | Diagnostic Imaging Report ---
Exam: Ultrasound summation abdomen. HISTORY: Ascites Findings: Real-time ultrasound examination abdomen performed multiple planes the study compared to prior study of 02/22/2018. The study demonstrates hepatosplenomegaly. There is evidence for cholelithiasis. The common bile duct measures 3.8 mm. Pancreas not visualized. There is no evidence of obstructive uropathy or nephrolithiasis. There is evidence of splenomegaly with spleen measuring 22 cm in span. Small amount of ascitic fluid is noted. IMPRESSION: Hepatosplenomegaly Cholelithiasis.
[2018-09-28] MEDS: Azithromycin 500 MG in Sodium Chloride 0.9% 250 ML IV SCH (11:08)
--- NOTE | 2018-09-28 14:34 | Consultation ---
DATE OF CONSULTATION: 09/27/2018 PULMONARY/CRITICAL CARE CONSULTATION REASON FOR CONSULTATION: The patient with respiratory distress. HISTORY OF PRESENT ILLNESS: This is a 47-year-old gentleman known alcoholic since last 40 years, quit about a month ago. The patient was admitted up here with some coughing, nonproductive, but mostly shortness of breath for the last couple of weeks. As the symptom got worse and also barely get distended. The patient was admitted and I was asked to see this patient for further care and necessary treatment. No coughing. Currently, slight shortness of breath, slightly orthopneic, also is complaining of significant swelling of the legs as well as abdomen and denied of having any fever, pleuritic chest pain, fever, etc. had gained some more weight. PAST MEDICAL HISTORY: Alcoholism. SMOKING HISTORY: Nil. ALLERGIES: ALLERGIC TO POSSIBLY MORPHINE. 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 PHYSICAL EXAMINATION: GENERAL: This is a middle-aged looking gentleman, quite distended belly quite, in no respiratory distress, slightly tachypneic. VITAL SIGNS: Temperature is 98.6, heart rate 123, blood pressure is 94/31, respiration 18, and saturation 98%. HEENT: Head is essentially unremarkable. Pupils appear to be equal and reacting to light. Conjunctivae are pallor. Oral cavity shows small oropharyngeal opening; otherwise unremarkable. NECK: No nodes in the neck could be palpated. Good bilateral carotid upstroke. CHEST: Shows marked diminished air entry on the right base some on the left base. I do not hear any adventitious breath sounds. ABDOMEN: Quite distended. EXTREMITIES: Shows slight trace of peripheral edema. DIAGNOSTIC STUDIES: Chest x-ray shows ____ on the right side with small on the left side. LABORATORY DATA: White count is 7.4, hemoglobin 11.1. PT/INR is 1.75, sodium is 127, BUN is 33, potassium is 5.4 and lactic acid is 3.92. IMPRESSION: The patient has a moderate to large effusion the right side, also small on the left side with significant incited which strongly suspect acute hepatic problem is causing to have shortness of breath, etc. Doubt any acute true parenchymal lung problems at this time. PLANS AND SUGGESTIONS: I agree with paracentesis. I agree with her diuretics and we will follow up with another chest x-ray and ammonia level, etc. and go from there. JOB# [id number]
--- NOTE | 2018-09-28 15:40 | Consultation ---
DATE OF CONSULTATION: 09/28/2018 HEMATOLOGY/ONCOLOGY CONSULTATION REFERRED BY: Dr. Ordonez. REASON FOR CONSULTATION: Thrombocytopenia and coagulopathy. HISTORY OF PRESENT ILLNESS: The patient is a 47-year-old male with history of cirrhosis, alcoholic liver disease, hepatosplenomegaly. He is admitted to the hospital with shortness of breath and found to have lung infiltrates and large pleural effusion, requiring thoracentesis. His platelet count is low and INR is elevated; therefore, I was asked to evaluate to optimize the platelets and coagulation before the procedure. The patient had multiple recent hospitalizations for liver disease and obstructive jaundice. PAST MEDICAL HISTORY: Chronic alcoholism, liver cirrhosis, and chronic thrombocytopenia and coagulopathy. MEDICATIONS: Reviewed. SOCIAL HISTORY: Alcoholism. The patient denied drinking now. Denies drug use. PHYSICAL EXAMINATION: GENERAL: He is awake and not in distress, on nasal cannula oxygen, mild shortness of breath, able to tolerate oral diet. VITAL SIGNS: Stable. HEENT: Icteric sclerae. NECK: No lymphadenopathy. CHEST: Bilateral rhonchi. ABDOMEN: Distended with ascites and umbilical hernia. EXTREMITIES: Edema in both lower extremities. LABORATORY DATA: White count 7.8 with left shift and increased bands, hemoglobin 9.7, platelets 20,000. On reviewing his previous records, his platelet count has been ranging between 20 and 50,000 since 2015 and his white count has been on the low side. INR 1.75, which has been also persistently elevated in the past few years. Bilirubin 5.1, direct bilirubin 2.3, elevated liver transaminases and low albumin and protein, creatinine 0.9. An ultrasound of the abdomen showed hepatosplenomegaly, spleen size is 22 cm with ascites. ASSESSMENT: Low platelet count secondary to hypersplenism. This will not correct with transfusion and the best approach is to transfuse the patient immediately before the thoracentesis or during the procedure. Likewise, the coagulopathy will need to be corrected with FFP immediately and during the procedure. The orders were entered and discussed with the nurse taking care of the patient. Thank you for the opportunity to participate in the care of this patient with you. JOB# [id number]
--- NOTE | 2018-09-28 18:50 | History & Physical ---
ADMIT DATE: 09/28/2018 PATIENT IDENTIFICATION: This is a 47-year-old. CHIEF COMPLAINT: Difficulty in breathing and feel more bloated. HISTORY SOURCE: The patient's and reviewing the chart. HISTORY OF PRESENT ILLNESS: A 47-year-old German male who speaks Yemeni only, has 20 years history of alcoholism, [place] [facility] [place] diagnosed to have cirrhosis of liver. Subsequently, he has been seen by Dr. Kevin Beyer on 09/17/2018 for cirrhosis related medical problem. He came to Emergency Room last evening after the patient's and the patient was noted that the patient was having difficulty in breathing and having cough and feel more bloated than usual. The patient was worked up in the Emergency Room and advised to be admitted in the hospital in view of elevated lactic acid and abnormal chemistry panel and multiple symptoms. PAST MEDICAL HISTORY: Remarkable for chronic alcoholism. MEDICATIONS AT HOME: At the time of admission was Lasix, potassium, Aldactone, lactulose. ALLERGIES: The patient is allergic to not any medications. SOCIAL HISTORY: He lives with his in [facility]. 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 According to the patient and his , he stopped drinking alcohol last month. Otherwise, no smoking. FAMILY MEDICAL HISTORY: Remarkable for hypertension. REVIEW OF SYSTEMS: The patient denies any headache, blurred vision, double vision, dysphagia, odynophagia, runny nose, stuffy nose, fever or chills. The patient denies any hematemesis, hematuria, hematochezia, or melena. No seizure or syncopal episode. PHYSICAL EXAMINATION: GENERAL: A 47-year-old, alert, awake, lying in the bed with mild respiratory distress. VITAL SIGNS: Temperature 98, pulse is 109, respiratory rate is 18, blood pressure 85/46. HEENT: Normocephalic, atraumatic. Extraocular muscles are intact. Tongue was pink and coated. Sclerae with icterus. No oral lesions noted. NECK: Supple, no JVD, no hepatojugular reflex. No lymphadenopathy, thyromegaly, or carotid bruit. HEART: Both heart sounds are regular. No S3, no S4. CHEST: Lung equal in expansion with decreased breath sounds at the right base is noted. No expiratory wheezing. ABDOMEN: Distended, but no palpable ascites noted, palpable abdominal hernia noted, some hyper-thickening of the skin on the lower part of the abdomen noted. No guarding, no rigidity. Bowel sounds are present. EXTREMITIES: Chronic venous stasis changes on both lower extremities with +1 edema noted. Peripheral pulses are +2. No calf tenderness. NEUROLOGIC: Alert, awake, oriented, following commands. No gross neuro deficit noted. AVAILABLE DIAGNOSTIC DATA: White count of 7.1, hemoglobin 11, platelet count of 31,000, 17% neutrophils noted. PT and PTTs are 17.7 and 29.7 respectively. INR 1.75, sodium 128, potassium 3.6, chloride 101, CO2 19.6. BUN and creatinine are 19 and 0.8, glucose of 125, lactic acid of 3.9 followed by 4.9, AST, ALT is 76 and 45, total bilirubin is 4.5, albumin of 1.9. Urinalysis remarkable for 100+ protein, moderate bilirubin, 0-2 wbc's, many bacteria were noted. Chest x-ray was done in the Emergency Room on 09/27/2017, which is remarkable for right pleural effusion and cardiomegaly. A CT scan of the chest was also ordered at 1900 on 09/27/2018, remarkable for extensive right-sided pneumonia and large effusion, small left lung pneumonia with superimposed small effusion noted. Abdominal ultrasound was also done on 09/27/2018 which is remarkable for hepatosplenomegaly, cholelithiasis, small amount of ascitic fluid is noted. CLINICAL IMPRESSION: 1. Acute onset of shortness of breath associated with large right-sided pleural effusion and pneumonia. Suspect symptoms of shortness of breath related to pneumonia with effusion, most likely parapneumonic in the view of elevated lactic acid, needs to rule out empyema. 2. Severe thrombocytopenia, most likely secondary to cirrhosis of liver causing him to have splenomegaly consistent with sequestration related to the thrombocytopenia. 3. Jaundice secondary to end-stage liver disease consistent with alcoholic cirrhosis. 4. Bilateral lower extremity edema secondary to decompensated liver disease. 5. Sepsis, ruled out sepsis. PLAN: The patient is admitted to telemetry unit. The patient was given oxygen, nebulizer treatment, IV antibiotic to cover community-acquired pneumonia. We will have Infectious and Pulmonary consultation. The patient will require thoracentesis. In the view of his severe thrombocytopenia, we will have Hematology/Oncology to help us to optimize his platelet count. Follow up lab will be done as well. We will also follow consult and recommendations. In the view of his end-stage liver disease, I did have a lengthy exhaustive discussion with the patient and his that the patient should seek medical care at tertiary care center. The patient may get better benefit with liver transplant. He should be a patient at tertiary care center, which they have fully understood. Meanwhile, we will try to provide care related to his acute problem. JOB# [id number]
--- NOTE | 2018-09-28 21:18 | Consultation ---
DATE OF CONSULTATION: 09/28/2018 INPATIENT GASTROINTESTINAL CONSULTATION REFERRING PHYSICIAN: Dr. Ordonez. REASON FOR CONSULTATION: Ascites. HISTORY OF PRESENT ILLNESS: A 47-year-old male with history of alcohol abuse, has been sober for the last one month. Apparently, he has abdominal distention and discomfort because of this and therefore, presented to the hospital. Denies having any nausea, vomiting, diarrhea, constipation, melena, hematochezia, hematemesis, or coffee ground emesis. Furthermore, denies having any confusion. PAST MEDICAL HISTORY: Alcohol abuse and ascites. PAST SURGICAL HISTORY: None to add recently. FAMILY HISTORY: Noncontributory. SOCIAL HISTORY: Denies tobacco or IV drug usage, but drinks alcohol and has been sober for a month. ALLERGIES: None. CURRENT MEDICATIONS: Albuterol, cefepime, Motrin, vancomycin. REVIEW OF SYSTEMS: Ten point review of system was performed and the pertinent positive was the ascites, abdominal distention, mild shortness of breath. All systems were otherwise negative. PHYSICAL EXAMINATION: VITAL SIGNS: Temperature 98.4, breathing 18, pulse 111, blood pressure 101/42, satting 98%. GENERAL: In no apparent distress. EYES: Anicteric. Normal conjunctivae. HEENT: Normocephalic, atraumatic. Moist mucous membranes. NECK: Soft, supple. CHEST: Clear. No effort. CARDIOVASCULAR: Regular rate and rhythm. ABDOMEN: Soft, nontender, but distended with umbilical hernia. Normal bowel sounds. SKIN: Warm and dry. EXTREMITIES: Reveal no cyanosis. PSYCHOLOGIC: Alert and oriented x 3. LABORATORY DATA: Show a white count 7.8, hemoglobin 9.7, platelets 20. INR 1.75. Creatinine 0.9, total bilirubin 5.1, AST 153, ALT 70, alkaline phosphatase 60. Ammonia 51. IMPRESSION: This is a 47-year-old male with ascites likely from underlying alcoholic liver disease. The patient may even have cirrhosis given the fact that he has thrombocytopenia and coagulopathy. His LFTs are elevated in a pattern consistent with cirrhosis. He will likely need a paracentesis to address the ascites. Diuretics therapy would also be helpful. He should also avoid high sodium diet and refrain from consuming any shellfish. His Tylenol intake should never exceed 2 grams in a 24-hour period. PLAN: 1. Abdominal ultrasound and paracentesis. 2. Lasix 40 mg and Aldactone 100 mg. 3. Low sodium diet. 4. He should establish care with construction worker for longitudinal care of his liver condition. 5. He should remain sober. Consider joining AA if needed to keep his sobriety. Thank you for allowing me to participate. Please call me if any questions. JOB# [id number]
[2018-09-29] MEDS: Albuterol/Ipratropium Neb 3 ML AERS HHN SCH ×4 (01:00→19:30)
[2018-09-29] MEDS: Cefepime 1 GM in Sodium Chloride 0.9% 50 ML IV SCH ×3 (04:53→20:45)
[2018-09-29 05:57] LABS: HEMATOCRIT 25.4 % (41.0-60); HEMOGLOBIN 8.6 gm/dL (12-16); MEAN CELL VOLUME 92.8 fl (80-99); MEAN CORPUSCULAR HEMOGLOBIN 31.5 pg (26.0-30.0); MEAN PLATELET VOLUME 10.2 fl; RED BLOOD COUNT 2.74 Mil/cmm (4.30-5.70); RED CELL DISTRIBUTION WIDTH 18.6 % (11.5-20.0)
[2018-09-29 06:03] LABS: PLATELET COUNT 18 Th/cmm (150-400)
[2018-09-29 06:54] LABS: ALB/GLOB RATIO 0.6 (1.0-1.8); ALBUMIN 1.7 gm/dL (4.2-5.5); ALKALINE PHOSPHATASE 62 U/L (34-104); ANION GAP 7.2 (7.0-16.0); BILIRUBIN,TOTAL 3.9 mg/dL (0.3-1.0); BUN - UREA NITROGEN 27 mg/dL (7-25); CALCIUM SERUM 7.9 mg/dL (8.6-10.3); CARBON DIOXIDE 20.5 mEq/L (21.0-31.0); CHLORIDE 103 mEq/L (98-107); CREATININE - SERUM 0.6 mg/dL (0.7-1.3); GFR AFRICAN-AMERICAN > 60.0 ml/min (>90); GFR NON AFRICAN-AMERICAN > 60.0 ml/min; GLUCOSE 101 mg/dL (70-105); POTASSIUM SERUM 4.7 mEq/L (3.5-5.1); SGOT 127 U/L (13-39); SGPT/ALT 65 U/L (7-52); SODIUM SERUM 126 mEq/L (136-145); TOTAL PROTEIN,SERUM 4.5 gm/dL (6.0-8.3)
[2018-09-29 06:59] LABS: BAND NEUTROPHILE 6 % (0-10); EOSINOPHIL 2 % (0-5); LYMPHOCYTE 13 % (20-50); MONOCYTE 10 % (2-10); NEUTROPHILS 69 % (40-80)
[2018-09-29 07:00] LABS: PLATELET ESTIMATE DECREASED PLATELETS (NORMAL)
--- NOTE | 2018-09-29 07:59 | GI Progress Note ---
Subjective - Review of Systems Subjective: EATING BREAKFAST Objective - Results Result Diagrams: 09/29/18 06:00 09/29/18 05:15 Recent Labs: Laboratory Last Values WBC 6.0 Th/cmm (4.8-10.8) 09/29/18 06:00 RBC 2.74 Mil/cmm (4.30-5.70) L 09/29/18 06:00 Hgb 8.6 gm/dL (12-16) L 09/29/18 06:00 Hct 25.4 % (41.0-60) L 09/29/18 06:00 MCV 92.8 fl (80-99) 09/29/18 06:00 MCH 31.5 pg (26.0-30.0) H 09/29/18 06:00 MCHC Differential 34.0 pg (28.0-36.0) 09/29/18 06:00 RDW 18.6 % (11.5-20.0) 09/29/18 06:00 Plt Count 18 Th/cmm (150-400) L* 09/29/18 06:00 MPV 10.2 fl 09/29/18 06:00 Add Manual Diff YES 09/29/18 06:00 Neutrophils % STORE OPERATIONS ASSOCIATE 09/29/18 06:00 Band Neutrophils % 6 % (0-10) 09/29/18 06:00 Lymphocytes % STORE OPERATIONS ASSOCIATE 09/29/18 06:00 Monocytes % STORE OPERATIONS ASSOCIATE 09/29/18 06:00 Eosinophils % STORE OPERATIONS ASSOCIATE 09/29/18 06:00 Basophils % STORE OPERATIONS ASSOCIATE 09/29/18 06:00 Neutrophils (Manual) 69 % (40-80) 09/29/18 06:00 Lymphocytes 13 % (20-50) L 09/29/18 06:00 Monocytes 10 % (2-10) 09/29/18 06:00 Eosinophils 2 % (0-5) 09/29/18 06:00 Basophils 0 % (0-3) 09/27/18 11:30 Metamyelocytes 2 % (0-0) H 09/28/18 06:38 Platelet Estimate DECREASED PLATELETS (NORMAL) 09/29/18 06:00 PT 17.7 SECONDS (9.5-11.5) H 09/27/18 11:30 INR 1.75 (0.5-1.4) H 09/27/18 11:30 PTT (Actin FS) 29.7 SECONDS (26.0-38.0) 09/27/18 11:30 Sodium 126 mEq/L (136-145) L 09/29/18 05:15 Potassium 4.7 mEq/L (3.5-5.1) 09/29/18 05:15 Chloride 103 mEq/L (98-107) 09/29/18 05:15 Carbon Dioxide 20.5 mEq/L (21.0-31.0) L 09/29/18 05:15 Anion Gap 7.2 (7.0-16.0) 09/29/18 05:15 BUN 27 mg/dL (7-25) H 09/29/18 05:15 Creatinine 0.6 mg/dL (0.7-1.3) L 09/29/18 05:15 Est GFR ( Amer) > 60.0 ml/min (>90) 09/29/18 05:15 Est GFR (Non-Af Amer) > 60.0 ml/min 09/29/18 05:15 BUN/Creatinine Ratio 45.0 09/29/18 05:15 Glucose 101 mg/dL (70-105) 09/29/18 05:15 POC Glucose 87 MG/DL (70 - 105) 09/27/18 17:54 Whole Bld Lactic Acid 0.98 mmol/L (0.60-1.99) 09/29/18 05:15 Calcium 7.9 mg/dL (8.6-10.3) L 09/29/18 05:15 Total Bilirubin 3.9 mg/dL (0.3-1.0) H 09/29/18 05:15 AST 127 U/L (13-39) H 09/29/18 05:15 ALT 65 U/L (7-52) H 09/29/18 05:15 Alkaline Phosphatase 62 U/L (34-104) 09/29/18 05:15 Ammonia 64 umol/L (16-53) H 09/29/18 05:15 Troponin I 0.01 ng/mL (0.01-0.05) 09/27/18 11:30 B-Natriuretic Peptide 10.2 pg/mL (5.0-100.0) 09/27/18 11:30 Total Protein 4.5 gm/dL (6.0-8.3) L 09/29/18 05:15 Albumin 1.7 gm/dL (4.2-5.5) L 09/29/18 05:15 Globulin 2.8 gm/dL 09/29/18 05:15 Albumin/Globulin Ratio 0.6 (1.0-1.8) L 09/29/18 05:15 Lipase 38 U/L (11-82) 09/27/18 11:30 Urine Source MIDSTREAM 09/27/18 14:30 Urine Color ORANGE 09/27/18 14:30 Urine Clarity HAZY (CLEAR) 09/27/18 14:30 Urine pH 5.5 (4.6 - 8.0) 09/27/18 14:30 Ur Specific [place] 1.025 (1.005-1.030) 09/27/18 14:30 Urine Protein 100 mg/dL (NEGATIVE) H 09/27/18 14:30 Urine Glucose (UA) NEGATIVE mg/dL (NEGATIVE) 09/27/18 14:30 Urine Ketones TRACE mg/dL (NEGATIVE) 09/27/18 14:30 Urine Blood NEGATIVE (NEGATIVE) 09/27/18 14:30 Urine Nitrate NEGATIVE (NEGATIVE) 09/27/18 14:30 Urine Bilirubin MODERATE (NEGATIVE) H 09/27/18 14:30 Urine Ictotest NEGATIVE (NEGATIVE) 09/27/18 14:30 Urine Urobilinogen 1.0 E.U./dL (0.2 - 1.0) 09/27/18 14:30 Ur Leukocyte Esterase NEGATIVE (NEGATIVE) 09/27/18 14:30 Urine RBC 0-2 /hpf (0-5) H 09/27/18 14:30 Urine WBC 6-10 /hpf (0-5) 09/27/18 14:30 Ur Epithelial Cells FEW /lpf (FEW) 09/27/18 14:30 Urine Bacteria MANY /hpf (NONE SEEN) H 09/27/18 14:30 Vancomycin Trough 9.7 ug/mL (5-10) 09/29/18 05:15 Blood Type O POSITIVE 09/28/18 13:00 Antibody Screen NEGATIVE 09/28/18 13:00 - Physical Exam Vitals and I&O: Vital Signs Temp 98.9 F 09/29/18 04:00 Pulse 96 09/29/18 04:00 Resp 18 09/29/18 05:00 BP 98/53 09/29/18 04:00 Pulse Ox 98 09/29/18 04:00 Intake & Output 09/28/18 09/29/18 09/29/18 18:59 06:59 18:59 Intake Total 700 50 Balance 700 50 Weight (lbs) 74.843 kg Intake: Intake, IV Amount 300 50 Cefepime 1 gm In Sodium 50 50 Chloride 0.9% 50 ml @ 100 mls/hr IV Q8HR [facility] Rx#: [id number] Vancomycin HCl 1.25 gm In 250 Sodium Chloride 0.9% 250 ml @ 165 mls/hr IV Q12H [facility] Rx#:[id number] Oral 400 Other: # Voids 5 # Bowel Movements 2 Stool Characteristics Soft Soft Formed Formed Brown Brown Weight Source Bedscale Active Medications: Current Medications Albuterol/Ipratropium (Duoneb Neb) 3 ml HHN Q6HRT [facility] Stop: 11/26/18 18:59 Last Admin: 09/29/18 07:03 Dose: 3 ml Albuterol/Ipratropium (Duoneb Neb) 3 ml HHN Q2HRT PRN PRN Reason: Wheezing Stop: 11/26/18 18:40 Furosemide (Lasix) 40 mg PO DAILY [facility] Stop: 11/27/18 08:59 Last Admin: 09/28/18 09:11 Dose: Not Given Cefepime HCl 1 gm/ Sodium (Chloride) 50 mls @ 100 mls/hr IV Q8HR [facility] Stop: 11/26/18 20:59 Last Admin: 09/29/18 04:53 Dose: 100 mls/hr Vancomycin HCl 1.25 gm/ Sodium (Chloride) 250 mls @ 165 mls/hr IV Q12H [facility] Stop: 11/27/18 09:59 Last Admin: 09/28/18 21:09 Dose: 165 mls/hr Azithromycin 500 mg/ Sodium (Chloride) 250 mls @ 250 mls/hr IV Q24HR [facility] Stop: 11/27/18 09:59 Last Admin: 09/28/18 11:08 Dose: 250 mls/hr Miscellaneous (Vancomycin Iv Per Pharmacy) 1 ea [facility] PRN PRN PRN Reason: PROTOCOL Stop: 11/26/18 17:55 Spironolactone (Aldactone) 100 mg PO DAILY [facility] Stop: 11/27/18 08:59 Last Admin: 09/28/18 09:11 Dose: Not Given Abdomen: Distended Assessment/Plan - Assessment Assessment: 47 YO MALE WITH ETOH CIRRHOSIS WITH ASCITES AND THROMBOCYTOPENIA JULISSA SHOWED GALLSTONES BUT NO CLINICAL SYMPTOMS 1.AWAIT PARACENTESIS 2.DIURETICS ON HOLD DUE TO LOW BP 3.CORRECT LOW PLT 4.PARVIZ IF SYMPTOMS BUT WOULD BE HIGH RISK GIVEN LOW PLT AND CIRRHOSIS 5.NEEDS TO ESTABLISH CARE WITH HEPATOLOGY THROUGH PCP 6.REFRAIN FROM ETOH
[2018-09-29 08:42] LABS: pH 7.44 (7.35-7.45)
[2018-09-29] MEDS: Azithromycin 500 MG in Sodium Chloride 0.9% 250 ML IV SCH (09:25)
[2018-09-29] MEDS: Vancomycin HCl 1.5 GM in Sodium Chloride 0.9% 500 ML IV SCH ×2 (10:16→22:21)
--- NOTE | 2018-09-29 11:34 | Diagnostic Imaging Report ---
Exam: Chest 2 views HISTORY: Shortness of breath. Findings: Frontal lateral views chest reviewed compared to prior examination of 118 demonstrates persistent right lower lobe pneumonia and effusion. Bony thorax intact. Mediastinal structures midline impression: Persistent right lower lobe infiltrate and effusion follow-up examination is recommended
[2018-09-29 15:52] LABS: INF A SCREEN NEG FOR INF A; INF B SCREEN NEG FOR INF B
--- NOTE | 2018-09-29 19:58 | Progress Notes ---
DATE: 09/29/2018 SUBJECTIVE: The patient seen and examined. The patient's at bedside. According to the patient, he is feeling a little better, though the patient's platelet has dropped to 18,000. The patient is currently asymptomatic. No active bleeding noted. PHYSICAL EXAMINATION: VITAL SIGNS: Temperature 99.2, pulse is 98, respiratory rate 18, and blood pressure 100/42. HEENT: Remarkable for icterus. Tongue were pink and coated. NECK: Supple, no JVD. HEART: Regular. LUNGS: Decreased breath sounds on the right base. ABDOMEN: Distended with umbilical hernia noted. Bowel sounds are present. EXTREMITIES: A +1 edema. NEUROLOGIC: Nonfocal. AVAILABLE LABORATORY DATA AND DIAGNOSTIC DATA: White count of 6.0, hemoglobin 8.6, and platelet count of 18,000. Sodium 126, potassium 4.7, chloride 103, CO2 20.5, BUN and creatinine is 27 and 0.6, albumin of 1.7, total bilirubin 3.9, AST, ALT is 127 and 65. Vancomycin trough is 9.7. CLINICAL IMPRESSION: 1. Right lower lobe pneumonia with effusion. 2. End-stage liver disease. 3. Severe thrombocytopenia secondary to sequestration caused by splenomegaly due to cirrhosis of liver. 4. Anemia. 5. Hyponatremia secondary to hypoosmolality secondary to volume overload. 6. Umbilical hernia. PLAN: 1. Continue oxygen. 2. Nebulizer treatment. 3. IV antibiotic. 4. Thoracentesis after optimizing platelet function test and platelet count. 5. Follow lab. 6. Follow consult recommendation. 7. Fluid restriction. 8. Care plan reviewed and discussed with staff, the patient's family, and the patient. JOB# [id number]
--- NOTE | 2018-09-30 00:44 | Consultation ---
DATE OF CONSULTATION: 09/29/2018 INFECTIOUS DISEASE CONSULTATION REFERRING PHYSICIAN: Dr. Ordonez. REASON FOR CONSULTATION: Pneumonia. 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 The patient had associated cough. On initial evaluation, the patient's temperature was 99.1 degree Fahrenheit, it went up to 100.7 degrees Fahrenheit and WBC count was 7100. Chest x-ray showed right lower lobe pneumonia. ID consult was called for further antibiotic management. Meanwhile, the patient was already started on cefepime, Zithromax, and vancomycin. PAST MEDICAL HISTORY: Includes alcohol abuse, cirrhosis, hypersplenism, thrombocytopenia secondary to hypersplenism. ALLERGIES: NKDA. MEDICATIONS: As per medication reconciliation sheet. The patient is receiving Zithromax, cefepime and vancomycin. SOCIAL HISTORY: The patient lives with his in [facility]. 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 The patient has history of alcohol abuse in the past, which he stopped 1 month ago. Denies any smoking or drug use. FAMILY HISTORY: Remarkable for hypertension. REVIEW OF SYSTEMS: GENERAL: The patient has no fever, no chills. HEENT: No diplopia, no photophobia, no sore throat. RESPIRATORY: No cough, no shortness of breath at this time. CARDIOVASCULAR: No chest pain or palpitation. GASTROINTESTINAL: No nausea, no vomiting, no diarrhea, no constipation. GENITOURINARY: No dysuria. No hematuria. NEUROLOGIC: No headache, no dizziness, no focal weakness. PHYSICAL EXAMINATION: VITAL SIGNS: Currently, vital signs shows temperature is 99.2 degrees Fahrenheit, pulse is 98, respirations 16, blood pressure 100/42, oxygen saturation 96%. GENERAL: The patient is comfortable, lying in the bed, not in acute distress. HEENT: Head is normocephalic, atraumatic. Oral cavity moist, pink tongue. Eyes: No pallor, no icterus. PERRLA, EOMI. NECK: Supple, no JVD, no bruit. Trachea in midline. CHEST: Bilateral breath sounds. Crackles present on the right side. Decreased breath sounds in the right side. HEART: S1, S2 within normal limits. Regular rhythm. No murmur, no gallop. ABDOMEN: Soft, nontender, nondistended. Bowel sounds present. EXTREMITIES: No cyanosis, no clubbing, no edema. NEUROLOGIC: Alert, awake, oriented x 3. LABORATORY DATA: Current lab shows WBC count 6000, hemoglobin 8.6, hematocrit 25.4, platelets are 18,000, bands are 6%. INR is 1.75. Sodium 126, potassium 4.7, chloride 103, bicarbonate is 20.5, BUN is 27, creatinine 0.6, glucose is 101. Total bilirubin 3.9, AST 127, ALT is 65, alkaline phosphatase is 62, ammonia is 64. Albumin 1.7. Urinalysis showed hazy urine with moderate bilirubin, leukoesterase negative, wbcs 6-10, and many bacteria. Chest x-ray showed right lower lobe infiltrate ____ may have right lower lobe effusion. CT scan of the chest showed right-sided pneumonia and large effusion, small left lower lung pneumonia. IMPRESSION: 1. Right-sided pneumonia with large effusion. 2. Bandemia and fever, sepsis. 3. Liver cirrhosis. 4. Hypersplenism. 5. Thrombocytopenia. 6. Anemia. RECOMMENDATION AND PLAN: We will continue vancomycin, cefepime and Zithromax. Check sputum cultures. Check legionella antigen in the urine. Check mycoplasma serology. Check influenza. Check sputum culture. Check blood cultures. Thank you, Dr. Ordonez for involving me in taking care of this patient. JOB# [id number]
[2018-09-30] MEDS: Albuterol/Ipratropium Neb 3 ML AERS HHN SCH ×4 (01:31→19:05)
[2018-09-30 04:49] LABS: HEMATOCRIT 25.9 % (41.0-60); HEMOGLOBIN 8.7 gm/dL (12-16); MEAN CELL VOLUME 91.5 fl (80-99); MEAN CORPUSCULAR HEMOGLOBIN 30.8 pg (26.0-30.0); MEAN CORPUSCULAR HGB CONC 33.6 pg (28.0-36.0); MEAN PLATELET VOLUME 11.2 fl; RED BLOOD COUNT 2.83 Mil/cmm (4.30-5.70); RED CELL DISTRIBUTION WIDTH 18.3 % (11.5-20.0); WHITE BLOOD COUNT 5.6 Th/cmm (4.8-10.8)
[2018-09-30] MEDS: Cefepime 1 GM in Sodium Chloride 0.9% 50 ML IV SCH ×3 (05:02→21:20)
[2018-09-30 05:26] LABS: ALB/GLOB RATIO 0.6 (1.0-1.8); ALBUMIN 1.7 gm/dL (4.2-5.5); ALKALINE PHOSPHATASE 86 U/L (34-104); ANION GAP 8.2 (7.0-16.0); BILIRUBIN,TOTAL 3.4 mg/dL (0.3-1.0); BUN - UREA NITROGEN 14 mg/dL (7-25); CALCIUM SERUM 7.7 mg/dL (8.6-10.3); CARBON DIOXIDE 20.9 mEq/L (21.0-31.0); CHLORIDE 102 mEq/L (98-107); CREATININE - SERUM 0.5 mg/dL (0.7-1.3); GFR AFRICAN-AMERICAN > 60.0 ml/min (>90); GFR NON AFRICAN-AMERICAN > 60.0 ml/min; GLUCOSE 91 mg/dL (70-105); POTASSIUM SERUM 4.1 mEq/L (3.5-5.1); SGOT 97 U/L (13-39); SGPT/ALT 60 U/L (7-52); SODIUM SERUM 127 mEq/L (136-145); TOTAL PROTEIN,SERUM 4.6 gm/dL (6.0-8.3)
[2018-09-30 05:32] LABS: PLATELET COUNT 19 Th/cmm (150-400)
[2018-09-30 07:27] LABS: BAND NEUTROPHILE 3 % (0-10); EOSINOPHIL 3 % (0-5); LYMPHOCYTE 9 % (20-50); MONOCYTE 8 % (2-10); NEUTROPHILS 77 % (40-80)
[2018-09-30 07:28] LABS: BASOPHIL 0 % (0-3); PLATELET ESTIMATE DECREASED PLATELETS (NORMAL)
--- NOTE | 2018-09-30 10:15 | GI Progress Note ---
Subjective - Review of Systems Subjective: NO EVENTS Objective - Results Result Diagrams: 09/30/18 04:25 09/30/18 04:25 Recent Labs: Laboratory Last Values WBC 5.6 Th/cmm (4.8-10.8) 09/30/18 04:25 RBC 2.83 Mil/cmm (4.30-5.70) L 09/30/18 04:25 Hgb 8.7 gm/dL (12-16) L 09/30/18 04:25 Hct 25.9 % (41.0-60) L 09/30/18 04:25 MCV 91.5 fl (80-99) 09/30/18 04:25 MCH 30.8 pg (26.0-30.0) H 09/30/18 04:25 MCHC Differential 33.6 pg (28.0-36.0) 09/30/18 04:25 RDW 18.3 % (11.5-20.0) 09/30/18 04:25 Plt Count 19 Th/cmm (150-400) L* 09/30/18 04:25 MPV 11.2 fl 09/30/18 04:25 Add Manual Diff YES 09/30/18 04:25 Neutrophils % GENDER STUDIES PROFESSOR 09/29/18 06:00 Band Neutrophils % 3 % (0-10) 09/30/18 04:25 Lymphocytes % GENDER STUDIES PROFESSOR 09/29/18 06:00 Monocytes % GENDER STUDIES PROFESSOR 09/29/18 06:00 Eosinophils % GENDER STUDIES PROFESSOR 09/29/18 06:00 Basophils % GENDER STUDIES PROFESSOR 09/29/18 06:00 Neutrophils (Manual) 77 % (40-80) 09/30/18 04:25 Lymphocytes 9 % (20-50) L 09/30/18 04:25 Monocytes 8 % (2-10) 09/30/18 04:25 Eosinophils 3 % (0-5) 09/30/18 04:25 Basophils 0 % (0-3) 09/30/18 04:25 Metamyelocytes 2 % (0-0) H 09/28/18 06:38 Platelet Estimate DECREASED PLATELETS (NORMAL) 09/30/18 04:25 PT 17.7 SECONDS (9.5-11.5) H 09/27/18 11:30 INR 1.75 (0.5-1.4) H 09/27/18 11:30 PTT (Actin FS) 29.7 SECONDS (26.0-38.0) 09/27/18 11:30 Specimen Source Arterial 09/29/18 08:15 Sample Site RB 09/29/18 08:15 pH 7.44 (7.35-7.45) 09/29/18 08:15 pCO2 29.0 mmHg (35.0-45.0) L 09/29/18 08:15 pO2 66.0 mmHg (80.0-100.0) L 09/29/18 08:15 HCO3 22.0 mEq/L (20.0-26.0) 09/29/18 08:15 Base Excess 22.2 mEq/L (-3.0-3.0) H 09/29/18 08:15 O2 Saturation 93.0 % (92.0-100.0) 09/29/18 08:15 Rafael Test NA 09/29/18 08:15 Vent Rate NA 09/29/18 08:15 Inspired O2 21 09/29/18 08:15 Tidal Volume NA 09/29/18 08:15 PEEP NA 09/29/18 08:15 Pressure (ins/psv/peep) NA 09/29/18 08:15 Critical Value SH 09/29/18 08:15 Sodium 127 mEq/L (136-145) L 09/30/18 04:25 Potassium 4.1 mEq/L (3.5-5.1) 09/30/18 04:25 Chloride 102 mEq/L (98-107) 09/30/18 04:25 Carbon Dioxide 20.9 mEq/L (21.0-31.0) L 09/30/18 04:25 Anion Gap 8.2 (7.0-16.0) 09/30/18 04:25 BUN 14 mg/dL (7-25) 09/30/18 04:25 Creatinine 0.5 mg/dL (0.7-1.3) L 09/30/18 04:25 Est GFR ( Amer) > 60.0 ml/min (>90) 09/30/18 04:25 Est GFR (Non-Af Amer) > 60.0 ml/min 09/30/18 04:25 BUN/Creatinine Ratio 28.0 09/30/18 04:25 Glucose 91 mg/dL (70-105) 09/30/18 04:25 POC Glucose 87 MG/DL (70 - 105) 09/27/18 17:54 Whole Bld Lactic Acid 0.98 mmol/L (0.60-1.99) 09/29/18 05:15 Calcium 7.7 mg/dL (8.6-10.3) L 09/30/18 04:25 Total Bilirubin 3.4 mg/dL (0.3-1.0) H 09/30/18 04:25 AST 97 U/L (13-39) H 09/30/18 04:25 ALT 60 U/L (7-52) H 09/30/18 04:25 Alkaline Phosphatase 86 U/L (34-104) 09/30/18 04:25 Ammonia 58 umol/L (16-53) H 09/30/18 04:25 Troponin I 0.01 ng/mL (0.01-0.05) 09/27/18 11:30 B-Natriuretic Peptide 10.2 pg/mL (5.0-100.0) 09/27/18 11:30 Total Protein 4.6 gm/dL (6.0-8.3) L 09/30/18 04:25 Albumin 1.7 gm/dL (4.2-5.5) L 09/30/18 04:25 Globulin 2.9 gm/dL 09/30/18 04:25 Albumin/Globulin Ratio 0.6 (1.0-1.8) L 09/30/18 04:25 Lipase 38 U/L (11-82) 09/27/18 11:30 Urine Source MIDSTREAM 09/27/18 14:30 Urine Color ORANGE 09/27/18 14:30 Urine Clarity HAZY (CLEAR) 09/27/18 14:30 Urine pH 5.5 (4.6 - 8.0) 09/27/18 14:30 Ur Specific [place] 1.025 (1.005-1.030) 09/27/18 14:30 Urine Protein 100 mg/dL (NEGATIVE) H 09/27/18 14:30 Urine Glucose (UA) NEGATIVE mg/dL (NEGATIVE) 09/27/18 14:30 Urine Ketones TRACE mg/dL (NEGATIVE) 09/27/18 14:30 Urine Blood NEGATIVE (NEGATIVE) 09/27/18 14:30 Urine Nitrate NEGATIVE (NEGATIVE) 09/27/18 14:30 Urine Bilirubin MODERATE (NEGATIVE) H 09/27/18 14:30 Urine Ictotest NEGATIVE (NEGATIVE) 09/27/18 14:30 Urine Urobilinogen 1.0 E.U./dL (0.2 - 1.0) 09/27/18 14:30 Ur Leukocyte Esterase NEGATIVE (NEGATIVE) 09/27/18 14:30 Urine RBC 0-2 /hpf (0-5) H 09/27/18 14:30 Urine WBC 6-10 /hpf (0-5) 09/27/18 14:30 Ur Epithelial Cells FEW /lpf (FEW) 09/27/18 14:30 Urine Bacteria MANY /hpf (NONE SEEN) H 09/27/18 14:30 Vancomycin Trough 8.5 ug/mL (5-10) 09/30/18 09:10 Influenza A (Rapid) NEG FOR INF A 09/29/18 15:15 Influenza B (Rapid) NEG FOR INF B 09/29/18 15:15 Blood Type O POSITIVE 09/28/18 13:00 Antibody Screen NEGATIVE 09/28/18 13:00 - Physical Exam Vitals and I&O: Vital Signs Temp 97.9 F 09/30/18 07:42 Pulse 83 09/30/18 07:42 Resp 19 09/30/18 07:42 BP 104/50 09/30/18 10:10 Pulse Ox 98 09/30/18 07:42 Intake & Output 09/29/18 09/30/18 09/30/18 18:59 06:59 18:59 Intake Total 800 175 Output Total 1000 Balance 800 -825 Weight (lbs) 116.256 kg Intake: Intake, IV Amount 800 50 Azithromycin 500 mg In 250 Sodium Chloride 0.9% 250 ml @ 250 mls/hr IV Q24HR [facility] Rx#:[id number] Cefepime 1 gm In Sodium 50 50 Chloride 0.9% 50 ml @ 100 mls/hr IV Q8HR [facility] Rx#: [id number] Vancomycin HCl 1.5 gm In 500 Sodium Chloride 0.9% 500 ml @ 250 mls/hr IV Q12H [facility] Rx#:[id number] Oral 125 Output: Urine 1000 Other: Stool Characteristics Formed Formed Brown Brown Weight Source Bedscale Active Medications: Current Medications Albuterol/Ipratropium (Duoneb Neb) 3 ml HHN Q6HRT [facility] Stop: 11/26/18 18:59 Last Admin: 09/30/18 06:58 Dose: 3 ml Albuterol/Ipratropium (Duoneb Neb) 3 ml HHN Q2HRT PRN PRN Reason: Wheezing Stop: 11/26/18 18:40 Furosemide (Lasix) 40 mg PO DAILY [facility] Stop: 11/27/18 08:59 Last Admin: 09/30/18 10:09 Dose: Not Given Cefepime HCl 1 gm/ Sodium (Chloride) 50 mls @ 100 mls/hr IV Q8HR [facility] Stop: 11/26/18 20:59 Last Admin: 09/30/18 05:02 Dose: 100 mls/hr Azithromycin 500 mg/ Sodium (Chloride) 250 mls @ 250 mls/hr IV Q24HR [facility] Stop: 11/27/18 09:59 Last Infusion: 09/29/18 10:30 Dose: Infused Vancomycin HCl 1.5 gm/ Sodium (Chloride) 500 mls @ 250 mls/hr IV Q12H [facility] Stop: 11/28/18 10:14 Last Admin: 09/29/18 22:21 Dose: 250 mls/hr Miscellaneous (Vancomycin Iv Per Pharmacy) 1 ea [facility] PRN PRN PRN Reason: PROTOCOL Stop: 11/26/18 17:55 Spironolactone (Aldactone) 100 mg PO DAILY [facility] Stop: 11/27/18 08:59 Last Admin: 09/30/18 10:10 Dose: Not Given Abdomen: Distended Assessment/Plan - Assessment Assessment: 47 YO MALE WITH ETOH CIRRHOSIS WITH ASCITES AND THROMBOCYTOPENIA JULISSA SHOWED GALLSTONES BUT NO CLINICAL SYMPTOMS 1.AWAIT PARACENTESIS 2.DIURETICS ON HOLD DUE TO LOW BP 3.CORRECT LOW PLT 4.PARVIZ IF SYMPTOMS BUT WOULD BE HIGH RISK GIVEN LOW PLT AND CIRRHOSIS 5.NEEDS TO ESTABLISH CARE WITH HEPATOLOGY THROUGH PCP 6.REFRAIN FROM ETOH
--- NOTE | 2018-09-30 11:53 | General Progress Note ---
Subjective - Review of Systems Service Date: 09/30/18 Subjective: less short of breath Objective - Results Result Diagrams: 09/30/18 04:25 09/30/18 04:25 Recent Labs: Laboratory Last Values WBC 5.6 Th/cmm (4.8-10.8) 09/30/18 04:25 RBC 2.83 Mil/cmm (4.30-5.70) L 09/30/18 04:25 Hgb 8.7 gm/dL (12-16) L 09/30/18 04:25 Hct 25.9 % (41.0-60) L 09/30/18 04:25 MCV 91.5 fl (80-99) 09/30/18 04:25 MCH 30.8 pg (26.0-30.0) H 09/30/18 04:25 MCHC Differential 33.6 pg (28.0-36.0) 09/30/18 04:25 RDW 18.3 % (11.5-20.0) 09/30/18 04:25 Plt Count 19 Th/cmm (150-400) L* 09/30/18 04:25 MPV 11.2 fl 09/30/18 04:25 Add Manual Diff YES 09/30/18 04:25 Neutrophils % END LATHE OPERATOR 09/29/18 06:00 Band Neutrophils % 3 % (0-10) 09/30/18 04:25 Lymphocytes % END LATHE OPERATOR 09/29/18 06:00 Monocytes % END LATHE OPERATOR 09/29/18 06:00 Eosinophils % END LATHE OPERATOR 09/29/18 06:00 Basophils % END LATHE OPERATOR 09/29/18 06:00 Neutrophils (Manual) 77 % (40-80) 09/30/18 04:25 Lymphocytes 9 % (20-50) L 09/30/18 04:25 Monocytes 8 % (2-10) 09/30/18 04:25 Eosinophils 3 % (0-5) 09/30/18 04:25 Basophils 0 % (0-3) 09/30/18 04:25 Metamyelocytes 2 % (0-0) H 09/28/18 06:38 Platelet Estimate DECREASED PLATELETS (NORMAL) 09/30/18 04:25 PT 17.7 SECONDS (9.5-11.5) H 09/27/18 11:30 INR 1.75 (0.5-1.4) H 09/27/18 11:30 PTT (Actin FS) 29.7 SECONDS (26.0-38.0) 09/27/18 11:30 Specimen Source Arterial 09/29/18 08:15 Sample Site RB 09/29/18 08:15 pH 7.44 (7.35-7.45) 09/29/18 08:15 pCO2 29.0 mmHg (35.0-45.0) L 09/29/18 08:15 pO2 66.0 mmHg (80.0-100.0) L 09/29/18 08:15 HCO3 22.0 mEq/L (20.0-26.0) 09/29/18 08:15 Base Excess 22.2 mEq/L (-3.0-3.0) H 09/29/18 08:15 O2 Saturation 93.0 % (92.0-100.0) 09/29/18 08:15 Rafael Test NA 09/29/18 08:15 Vent Rate NA 09/29/18 08:15 Inspired O2 21 09/29/18 08:15 Tidal Volume NA 09/29/18 08:15 PEEP NA 09/29/18 08:15 Pressure (ins/psv/peep) NA 09/29/18 08:15 Critical Value SH 09/29/18 08:15 Sodium 127 mEq/L (136-145) L 09/30/18 04:25 Potassium 4.1 mEq/L (3.5-5.1) 09/30/18 04:25 Chloride 102 mEq/L (98-107) 09/30/18 04:25 Carbon Dioxide 20.9 mEq/L (21.0-31.0) L 09/30/18 04:25 Anion Gap 8.2 (7.0-16.0) 09/30/18 04:25 BUN 14 mg/dL (7-25) 09/30/18 04:25 Creatinine 0.5 mg/dL (0.7-1.3) L 09/30/18 04:25 Est GFR ( Amer) > 60.0 ml/min (>90) 09/30/18 04:25 Est GFR (Non-Af Amer) > 60.0 ml/min 09/30/18 04:25 BUN/Creatinine Ratio 28.0 09/30/18 04:25 Glucose 91 mg/dL (70-105) 09/30/18 04:25 POC Glucose 87 MG/DL (70 - 105) 09/27/18 17:54 Whole Bld Lactic Acid 0.98 mmol/L (0.60-1.99) 09/29/18 05:15 Calcium 7.7 mg/dL (8.6-10.3) L 09/30/18 04:25 Total Bilirubin 3.4 mg/dL (0.3-1.0) H 09/30/18 04:25 AST 97 U/L (13-39) H 09/30/18 04:25 ALT 60 U/L (7-52) H 09/30/18 04:25 Alkaline Phosphatase 86 U/L (34-104) 09/30/18 04:25 Ammonia 58 umol/L (16-53) H 09/30/18 04:25 Troponin I 0.01 ng/mL (0.01-0.05) 09/27/18 11:30 B-Natriuretic Peptide 10.2 pg/mL (5.0-100.0) 09/27/18 11:30 Total Protein 4.6 gm/dL (6.0-8.3) L 09/30/18 04:25 Albumin 1.7 gm/dL (4.2-5.5) L 09/30/18 04:25 Globulin 2.9 gm/dL 09/30/18 04:25 Albumin/Globulin Ratio 0.6 (1.0-1.8) L 09/30/18 04:25 Lipase 38 U/L (11-82) 09/27/18 11:30 Urine Source MIDSTREAM 09/27/18 14:30 Urine Color ORANGE 09/27/18 14:30 Urine Clarity HAZY (CLEAR) 09/27/18 14:30 Urine pH 5.5 (4.6 - 8.0) 09/27/18 14:30 Ur Specific [place] 1.025 (1.005-1.030) 09/27/18 14:30 Urine Protein 100 mg/dL (NEGATIVE) H 09/27/18 14:30 Urine Glucose (UA) NEGATIVE mg/dL (NEGATIVE) 09/27/18 14:30 Urine Ketones TRACE mg/dL (NEGATIVE) 09/27/18 14:30 Urine Blood NEGATIVE (NEGATIVE) 09/27/18 14:30 Urine Nitrate NEGATIVE (NEGATIVE) 09/27/18 14:30 Urine Bilirubin MODERATE (NEGATIVE) H 09/27/18 14:30 Urine Ictotest NEGATIVE (NEGATIVE) 09/27/18 14:30 Urine Urobilinogen 1.0 E.U./dL (0.2 - 1.0) 09/27/18 14:30 Ur Leukocyte Esterase NEGATIVE (NEGATIVE) 09/27/18 14:30 Urine RBC 0-2 /hpf (0-5) H 09/27/18 14:30 Urine WBC 6-10 /hpf (0-5) 09/27/18 14:30 Ur Epithelial Cells FEW /lpf (FEW) 09/27/18 14:30 Urine Bacteria MANY /hpf (NONE SEEN) H 09/27/18 14:30 Vancomycin Trough 8.5 ug/mL (5-10) 09/30/18 09:10 Influenza A (Rapid) NEG FOR INF A 09/29/18 15:15 Influenza B (Rapid) NEG FOR INF B 09/29/18 15:15 Blood Type O POSITIVE 09/28/18 13:00 Antibody Screen NEGATIVE 09/28/18 13:00 - Physical Exam Vitals and I&O: Vital Signs Temp 97.7 F 09/30/18 11:42 Pulse 80 09/30/18 11:42 Resp 19 09/30/18 11:42 BP 101/51 09/30/18 11:42 Pulse Ox 98 09/30/18 11:42 Intake & Output 09/29/18 09/30/18 09/30/18 18:59 06:59 18:59 Intake Total 800 175 Output Total 1000 Balance 800 -825 Weight (lbs) 116.256 kg Intake: Intake, IV Amount 800 50 Azithromycin 500 mg In 250 Sodium Chloride 0.9% 250 ml @ 250 mls/hr IV Q24HR [facility] Rx#:[id number] Cefepime 1 gm In Sodium 50 50 Chloride 0.9% 50 ml @ 100 mls/hr IV Q8HR [facility] Rx#: [id number] Vancomycin HCl 1.5 gm In 500 Sodium Chloride 0.9% 500 ml @ 250 mls/hr IV Q12H [facility] Rx#:[id number] Oral 125 Output: Urine 1000 Other: Stool Characteristics Formed Formed Formed Brown Brown Brown Weight Source Bedscale Active Medications: Current Medications Albuterol/Ipratropium (Duoneb Neb) 3 ml HHN Q6HRT [facility] Stop: 11/26/18 18:59 Last Admin: 09/30/18 06:58 Dose: 3 ml Albuterol/Ipratropium (Duoneb Neb) 3 ml HHN Q2HRT PRN PRN Reason: Wheezing Stop: 11/26/18 18:40 Furosemide (Lasix) 40 mg PO DAILY [facility] Stop: 11/27/18 08:59 Last Admin: 09/30/18 10:09 Dose: Not Given Cefepime HCl 1 gm/ Sodium (Chloride) 50 mls @ 100 mls/hr IV Q8HR [facility] Stop: 11/26/18 20:59 Last Admin: 09/30/18 05:02 Dose: 100 mls/hr Azithromycin 500 mg/ Sodium (Chloride) 250 mls @ 250 mls/hr IV Q24HR [facility] Stop: 11/27/18 09:59 Last Infusion: 09/29/18 10:30 Dose: Infused Vancomycin HCl 1.5 gm/ Sodium (Chloride) 500 mls @ 250 mls/hr IV Q8HR@0000,0800 ,1600 [facility] Stop: 11/29/18 17:59 Miscellaneous (Vancomycin Iv Per Pharmacy) 1 ea [facility] PRN PRN PRN Reason: PROTOCOL Stop: 11/26/18 17:55 Spironolactone (Aldactone) 100 mg PO DAILY [facility] Stop: 11/27/18 08:59 Last Admin: 09/30/18 10:10 Dose: Not Given General: Alert HEENT: Atraumatic Neck: Supple Cardiovascular: Regular rate Lungs: Other (decreased air entry on left) Abdomen: Distended Assessment/Plan - Assessment Assessment: * Hepatic coagulopathy * cirrhosis * splenomegaly * hypersplenism * thrombocytopeni, chronic plt and ffp tx today before thoracentesis
--- NOTE | 2018-09-30 13:07 | Diagnostic Imaging Report ---
Thoracentesis (right side, ultrasound-guided) HISTORY: Pleural effusion Using ultrasound guidance and sterile technique, 900 cc of red-tinged pleural fluid was aspirated from the right hemithorax. The patient tolerated the procedure with no immediate apparent clinical complications. IMPRESSION: 1. Right-sided thoracentesis as noted above
--- NOTE | 2018-09-30 13:51 | Diagnostic Imaging Report ---
Portable chest x-ray HISTORY: Shortness of breath, status post thoracentesis Compared with the prior exam of 09/29/2018, persistent yet slightly decreased right pleural effusion consistent with a recent thoracentesis. No pneumothorax identified. IMPRESSION: 1. Findings consistent with a persistent but slightly decreased right pleural effusion consistent with a recent thoracentesis. No pneumothorax.
--- NOTE | 2018-09-30 17:09 | Progress Notes ---
DATE: 09/27/2018 PROBLEM LIST: 1. Effusion, status post thoracentesis, right-sided bloody-tinged fluid symptoms. 2. Possibly alcoholic liver disease with significant ascites. SYMPTOMS: The patient states he is doing okay, offers better after thoracentesis. Offers no specific new symptomatology at this particular time, coughing and wheezing is almost gone and no coughing, no wheezing and no other related symptomatology at this particular time and no pain or hemoptysis, etc. PHYSICAL EXAMINATION: VITAL SIGNS: The patient's recorded vitals: Temperature is 97.7, blood pressure 108/60, respiration is in 20s, saturation is 98 on room air. ENT: Shows no new changes. NECK: No nodes in the neck could be palpated. CHEST: Shows diminished air entry on the right, both the bases, but better air entry than before. HEART: Regular. ABDOMEN: Quite distended. EXTREMITIES: Shows slight trace of peripheral edema. IMPRESSION: The patient is clinically stable, status post thoracentesis. PLANS AND SUGGESTIONS: Continue current treatment. We will follow through lab and chest x-ray tomorrow, may be consideration for paracentesis ____. JOB# [id number]
[2018-09-30] MEDS: Azithromycin 500 MG in Sodium Chloride 0.9% 250 ML IV SCH (17:16)
[2018-09-30] MEDS: Vancomycin HCl 1.5 GM in Sodium Chloride 0.9% 500 ML IV SCH (19:02)
[2018-10-01] MEDS: Albuterol/Ipratropium Neb 3 ML AERS HHN SCH ×4 (00:30→19:03)
[2018-10-01] MEDS: Vancomycin HCl 1.5 GM in Sodium Chloride 0.9% 500 ML IV SCH ×2 (01:02→03:16)
[2018-10-01] MEDS: Cefepime 1 GM in Sodium Chloride 0.9% 50 ML IV SCH ×4 (01:03→20:08)
--- NOTE | 2018-10-01 01:27 | Infectious Disease Prog Note ---
Infectious Disease Subjective - Review of Systems Service Date: 09/30/18 Subjective: No new change, no fever, cough present. Infectious Disease Objective - Results Result Diagrams: 09/30/18 04:25 09/30/18 04:25 Recent Labs: Laboratory Last Values WBC 5.6 Th/cmm (4.8-10.8) 09/30/18 04:25 RBC 2.83 Mil/cmm (4.30-5.70) L 09/30/18 04:25 Hgb 8.7 gm/dL (12-16) L 09/30/18 04:25 Hct 25.9 % (41.0-60) L 09/30/18 04:25 MCV 91.5 fl (80-99) 09/30/18 04:25 MCH 30.8 pg (26.0-30.0) H 09/30/18 04:25 MCHC Differential 33.6 pg (28.0-36.0) 09/30/18 04:25 RDW 18.3 % (11.5-20.0) 09/30/18 04:25 Plt Count 19 Th/cmm (150-400) L* 09/30/18 04:25 MPV 11.2 fl 09/30/18 04:25 Add Manual Diff YES 09/30/18 04:25 Neutrophils % CHAIN MAKER 09/29/18 06:00 Band Neutrophils % 3 % (0-10) 09/30/18 04:25 Lymphocytes % CHAIN MAKER 09/29/18 06:00 Monocytes % CHAIN MAKER 09/29/18 06:00 Eosinophils % CHAIN MAKER 09/29/18 06:00 Basophils % CHAIN MAKER 09/29/18 06:00 Neutrophils (Manual) 77 % (40-80) 09/30/18 04:25 Lymphocytes 9 % (20-50) L 09/30/18 04:25 Monocytes 8 % (2-10) 09/30/18 04:25 Eosinophils 3 % (0-5) 09/30/18 04:25 Basophils 0 % (0-3) 09/30/18 04:25 Metamyelocytes 2 % (0-0) H 09/28/18 06:38 Platelet Estimate DECREASED PLATELETS (NORMAL) 09/30/18 04:25 PT 17.7 SECONDS (9.5-11.5) H 09/27/18 11:30 INR 1.75 (0.5-1.4) H 09/27/18 11:30 PTT (Actin FS) 29.7 SECONDS (26.0-38.0) 09/27/18 11:30 Specimen Source Arterial 09/29/18 08:15 Sample Site RB 09/29/18 08:15 pH 7.44 (7.35-7.45) 09/29/18 08:15 pCO2 29.0 mmHg (35.0-45.0) L 09/29/18 08:15 pO2 66.0 mmHg (80.0-100.0) L 09/29/18 08:15 HCO3 22.0 mEq/L (20.0-26.0) 09/29/18 08:15 Base Excess 22.2 mEq/L (-3.0-3.0) H 09/29/18 08:15 O2 Saturation 93.0 % (92.0-100.0) 09/29/18 08:15 Rafael Test NA 09/29/18 08:15 Vent Rate NA 09/29/18 08:15 Inspired O2 21 09/29/18 08:15 Tidal Volume NA 09/29/18 08:15 PEEP NA 09/29/18 08:15 Pressure (ins/psv/peep) NA 09/29/18 08:15 Critical Value SH 09/29/18 08:15 Sodium 127 mEq/L (136-145) L 09/30/18 04:25 Potassium 4.1 mEq/L (3.5-5.1) 09/30/18 04:25 Chloride 102 mEq/L (98-107) 09/30/18 04:25 Carbon Dioxide 20.9 mEq/L (21.0-31.0) L 09/30/18 04:25 Anion Gap 8.2 (7.0-16.0) 09/30/18 04:25 BUN 14 mg/dL (7-25) 09/30/18 04:25 Creatinine 0.5 mg/dL (0.7-1.3) L 09/30/18 04:25 Est GFR ( Amer) > 60.0 ml/min (>90) 09/30/18 04:25 Est GFR (Non-Af Amer) > 60.0 ml/min 09/30/18 04:25 BUN/Creatinine Ratio 28.0 09/30/18 04:25 Glucose 91 mg/dL (70-105) 09/30/18 04:25 POC Glucose 87 MG/DL (70 - 105) 09/27/18 17:54 Whole Bld Lactic Acid 0.98 mmol/L (0.60-1.99) 09/29/18 05:15 Calcium 7.7 mg/dL (8.6-10.3) L 09/30/18 04:25 Total Bilirubin 3.4 mg/dL (0.3-1.0) H 09/30/18 04:25 AST 97 U/L (13-39) H 09/30/18 04:25 ALT 60 U/L (7-52) H 09/30/18 04:25 Alkaline Phosphatase 86 U/L (34-104) 09/30/18 04:25 Ammonia 58 umol/L (16-53) H 09/30/18 04:25 Troponin I 0.01 ng/mL (0.01-0.05) 09/27/18 11:30 B-Natriuretic Peptide 10.2 pg/mL (5.0-100.0) 09/27/18 11:30 Total Protein 4.6 gm/dL (6.0-8.3) L 09/30/18 04:25 Albumin 1.7 gm/dL (4.2-5.5) L 09/30/18 04:25 Globulin 2.9 gm/dL 09/30/18 04:25 Albumin/Globulin Ratio 0.6 (1.0-1.8) L 09/30/18 04:25 Lipase 38 U/L (11-82) 09/27/18 11:30 Urine Source MIDSTREAM 09/27/18 14:30 Urine Color ORANGE 09/27/18 14:30 Urine Clarity HAZY (CLEAR) 09/27/18 14:30 Urine pH 5.5 (4.6 - 8.0) 09/27/18 14:30 Ur Specific [place] 1.025 (1.005-1.030) 09/27/18 14:30 Urine Protein 100 mg/dL (NEGATIVE) H 09/27/18 14:30 Urine Glucose (UA) NEGATIVE mg/dL (NEGATIVE) 09/27/18 14:30 Urine Ketones TRACE mg/dL (NEGATIVE) 09/27/18 14:30 Urine Blood NEGATIVE (NEGATIVE) 09/27/18 14:30 Urine Nitrate NEGATIVE (NEGATIVE) 09/27/18 14:30 Urine Bilirubin MODERATE (NEGATIVE) H 09/27/18 14:30 Urine Ictotest NEGATIVE (NEGATIVE) 09/27/18 14:30 Urine Urobilinogen 1.0 E.U./dL (0.2 - 1.0) 09/27/18 14:30 Ur Leukocyte Esterase NEGATIVE (NEGATIVE) 09/27/18 14:30 Urine RBC 0-2 /hpf (0-5) H 09/27/18 14:30 Urine WBC 6-10 /hpf (0-5) 09/27/18 14:30 Ur Epithelial Cells FEW /lpf (FEW) 09/27/18 14:30 Urine Bacteria MANY /hpf (NONE SEEN) H 09/27/18 14:30 Vancomycin Trough 8.5 ug/mL (5-10) 09/30/18 09:10 Influenza A (Rapid) NEG FOR INF A 09/29/18 15:15 Influenza B (Rapid) NEG FOR INF B 09/29/18 15:15 Blood Type O POSITIVE 09/28/18 13:00 Antibody Screen NEGATIVE 09/28/18 13:00 - Physical Exam Vitals and I&O: Vital Signs Temp 98.3 F 10/01/18 00:00 Pulse 96 10/01/18 00:41 Resp 20 10/01/18 00:41 BP 103/70 10/01/18 00:00 Pulse Ox 97 10/01/18 00:41 Intake & Output 09/30/18 09/30/18 10/01/18 06:59 18:59 06:59 Intake Total 355 73 5047 Output Total 1000 Balance -031 41 3648 Weight (lbs) 116.256 kg 115.076 kg Intake: Intake, IV Amount 100 50 500 Cefepime 1 gm In Sodium 100 50 Chloride 0.9% 50 ml @ 100 mls/hr IV Q8HR [facility] Rx#: [id number] Vancomycin HCl 1.5 gm In 500 Sodium Chloride 0.9% 500 ml @ 250 mls/hr IV Q8HR@ 0000,0800,1600 [facility] Rx#: [id number] Oral 125 800 Output: Urine 1000 Other: # Voids 700 # Bowel Movements 1 Stool Characteristics Formed Formed Formed Brown Brown Brown Weight Source Bedscale Bedscale Active Medications: Current Medications Albuterol/Ipratropium (Duoneb Neb) 3 ml HHN Q6HRT [facility] Stop: 11/26/18 18:59 Last Admin: 10/01/18 00:30 Dose: 3 ml Albuterol/Ipratropium (Duoneb Neb) 3 ml HHN Q2HRT PRN PRN Reason: Wheezing Stop: 11/26/18 18:40 Furosemide (Lasix) 40 mg PO DAILY [facility] Stop: 11/27/18 08:59 Last Admin: 09/30/18 10:09 Dose: Not Given Cefepime HCl 1 gm/ Sodium (Chloride) 50 mls @ 100 mls/hr IV Q8HR [facility] Stop: 11/26/18 20:59 Last Admin: 10/01/18 01:03 Dose: 100 mls/hr Azithromycin 500 mg/ Sodium (Chloride) 250 mls @ 250 mls/hr IV Q24HR [facility] Stop: 11/27/18 09:59 Last Admin: 09/30/18 17:16 Dose: 250 mls/hr Vancomycin HCl 1.5 gm/ Sodium (Chloride) 500 mls @ 250 mls/hr IV Q8HR@0000,0800 ,1600 [facility] Stop: 11/29/18 17:59 Last Admin: 10/01/18 01:02 Dose: Not Given Miscellaneous (Vancomycin Iv Per Pharmacy) 1 ea [facility] PRN PRN PRN Reason: PROTOCOL Stop: 11/26/18 17:55 Spironolactone (Aldactone) 100 mg PO DAILY [facility] Stop: 11/27/18 08:59 Last Admin: 09/30/18 10:10 Dose: Not Given General: no acute distress, well developed, well nourished HEENT: atraumatic, normocephalic, PERRLA, EOMI Neck: supple, no thyromegaly Cardiovascular: S1S2, regular Lungs: clear to auscultation bilaterally, clear to percussion, rhonchi, other ( bs in left) Abdomen: soft, no tender, no distended Extremities: no cyanosis, no clubbing, no edema Neurological: awake, alert, oriented Infectious Disease Assmt/Plan - Assessment Assessment: 1. Right-sided pneumonia with large effusion. 2. Bandemia and fever, sepsis. 3. Liver cirrhosis. 4. Hypersplenism. 5. Thrombocytopenia. 6. Anemia. - Plan Plan: continue vancomycin, cefepime and Zithromax. Check sputum cultures. Check legionella antigen in the urine. Check mycoplasma serology. Check influenza. Check sputum culture. Check blood cultures. Nutritional Asmnt/Malnutr-PDOC - Dietary Evaluation Malnutrition Findings (Please click <Entered> for more info): Nutritional Asmnt/Malnutrition Start: 09/30/18 13: 54 Text: Status: Complete Freq: Protocol: Document 09/30/18 13:55 [email or web address] (Rec: 09/30/18 14:05 [email or web address]) Nutritional Asmnt/Malnutrition Patient General Information Nutritional Screening High Risk Diagnosis sepsis, R/O peritonitis Pertinent Medical Hx/Surgical Hx chronic alcoholism, cirrhosis Subjective Information Pt was seen resting in bed at time of visit, polish speaking only. PO intake is 100% per EMR. Pt was NPO this morning for thoracentesis. Current Diet Order/ Nutrition Support low sodium 2gm Pertinent Medications lasix, vancomycin Pertinent Labs 09/30 Na 127, cr 0.5, Ca 7.7, alb 1.7 09/29 Na 126, BUN 27, cr 0.6, ca 7.9, alb 1.7 Nutritional Hx/Data Height 1.73 m Height (Calculated Centimeters) 172.7 Current Weight (lbs) 116.12 kg Weight (Calculated Kilograms) 116.1 Weight (Calculated Grams) 512007.6 [place] Body Weight 154 Body Mass Index (BMI) 38.9 Weight Status Obese GI Symptoms GI Symptoms None Last BM 09/28 x2 Difficult in: None Food Allergies No Skin Integrity/Comment: brownish discoloration lower ext, gremán 19 Current %PO Good (75-100%) Estimated Nutritional Goals BEE in Kcals: Adj wt of IBW Calories/Kcals/Kg 25-30 Kcals Calculated 5882-5925 Protein: Adj wt of IBW Protein g/k-1.2 Protein Calculated 81-97 Fluid: ml 7046-5237 (1ml/kcal) Nutritional Problem 1. Problem Problem altered nutriton related labs Etiology fluid/electrolyte imbalance Signs/Symptoms: Na 126-127 Malnutrition Alert Is there a minimum of two criteria No selected? Query Text:Check all the applicable criteria. A minimum of two criteria are recommended for diagnosis of either severe or non-severe malnutrition. Malnutrition Related to Morbid Obesity Malnutrition related to morbid obesity No Intervention/Recommendation Comments 1. Continue with low sodium 2gm diet as ordered. 2. MD to replace electrolytes 3. Monitor PO intake, wt, labs and skin integrity 4. F/U as moderate risk in 3-5 days Expected Outcomes/Goals Expected Outcomes/Goals 1. PO intake to meet at least 75% of nutritional needs. 2. Wt stability, skin to remain intact, labs to approach WNL. Reviewed by Aleida Tim RD
--- NOTE | 2018-10-01 01:29 | Progress Notes ---
DATE: 09/30/2018 SUBJECTIVE: The patient is getting his ultrasound-guided thoracentesis. The patient remained hemodynamically stable. No new event. OBJECTIVE: VITAL SIGNS: Temperature 97.9, pulse 83, respiratory rate 19, and blood pressure 104/50. HEENT: Sclerae icterus. Tongue was pink and coated. NECK: Supple, no JVD. HEART: Regular. CHEST AND LUNGS: Equal in expansion, no expiratory wheezing. Decreased breath sounds on the right base noted. ABDOMEN: Distended, palpable abdominal hernia noted. EXTREMITIES: Chronic venous stasis changes noted. AVAILABLE LABORATORY DATA AND DIAGNOSTIC DATA: White count of 5.6, hemoglobin 8.7, and platelet of 19,000. Sodium 127, potassium 4.1, chloride 102, CO2 20.9, BUN and creatinine is 14 and 0.5, calcium of 7.7, total bilirubin is 3.4, AST and ALT is 97 and 60. Influenza A and B are negative. CLINICAL IMPRESSION: 1. Hypoosmolar hyponatremia secondary to cirrhosis of liver and volume overload. 2. Severe thrombocytopenia secondary to severe splenomegaly secondary to cirrhosis of liver. 3. Normocytic normochromic anemia secondary to anemia of chronic disease. 4. End-stage liver disease. 5. Pneumonia with pleural effusion, rule out empyema. 6. Obesity. PLAN: 1. Ultrasound-guided thoracentesis today. 2. IV antibiotic. 3. Oxygen. 4. Nebulizer treatment. 5. Diuretics as ordered. 6. Follow lab. 7. General nursing care. 8. Follow consult recommendation. 9. Care plan reviewed and discussed with staff. JOB# [id number]
[2018-10-01 06:18] LABS: HEMATOCRIT 24.5 % (41.0-60); HEMOGLOBIN 8.3 gm/dL (12-16); MEAN CELL VOLUME 91.3 fl (80-99); MEAN CORPUSCULAR HEMOGLOBIN 30.8 pg (26.0-30.0); MEAN CORPUSCULAR HGB CONC 33.7 pg (28.0-36.0); MEAN PLATELET VOLUME 8.5 fl; RED BLOOD COUNT 2.68 Mil/cmm (4.30-5.70); RED CELL DISTRIBUTION WIDTH 18.3 % (11.5-20.0)
[2018-10-01 06:29] LABS: PLATELET COUNT 30 Th/cmm (150-400); WHITE BLOOD COUNT 3.5 Th/cmm (4.8-10.8)
[2018-10-01 06:41] LABS: ALB/GLOB RATIO 0.6 (1.0-1.8); ALBUMIN 1.8 gm/dL (4.2-5.5); ALKALINE PHOSPHATASE 95 U/L (34-104); ANION GAP 5.9 (7.0-16.0); BILIRUBIN,TOTAL 2.9 mg/dL (0.3-1.0); BUN - UREA NITROGEN 14 mg/dL (7-25); CALCIUM SERUM 7.8 mg/dL (8.6-10.3); CHLORIDE 106 mEq/L (98-107); CREATININE - SERUM 0.6 mg/dL (0.7-1.3); GFR AFRICAN-AMERICAN > 60.0 ml/min (>90); GFR NON AFRICAN-AMERICAN > 60.0 ml/min; GLUCOSE 92 mg/dL (70-105); POTASSIUM SERUM 3.9 mEq/L (3.5-5.1); SGOT 77 U/L (13-39); SGPT/ALT 51 U/L (7-52); SODIUM SERUM 130 mEq/L (136-145); TOTAL PROTEIN,SERUM 4.7 gm/dL (6.0-8.3)
[2018-10-01 07:12] LABS: BAND NEUTROPHILE 2 % (0-10); BASOPHIL 0 % (0-3); EOSINOPHIL 5 % (0-5); LYMPHOCYTE 20 % (20-50); MONOCYTE 8 % (2-10); NEUTROPHILS 65 % (40-80)
[2018-10-01 07:13] LABS: PLATELET ESTIMATE DECREASED PLATELETS (NORMAL)
--- NOTE | 2018-10-01 09:11 | Diagnostic Imaging Report ---
CHEST X-RAY: 2 views INDICATION: Shortness of breath, effusion COMPARISON: Chest x-ray 09/30/2018 FINDINGS: There is a small to moderate right effusion right basal infiltrate. Mild cardiomegaly is noted. IMPRESSION: Small to moderate right effusion and right basal infiltrates. Follow-up recommended.
[2018-10-01] MEDS: Azithromycin 500 MG in Sodium Chloride 0.9% 250 ML IV SCH (10:36)
--- NOTE | 2018-10-01 10:38 | Diagnostic Imaging Report ---
CT abdomen and pelvis with intravenous contrast Indication: Abdominal pain and distention Comparison: CT abdomen and pelvis on 09/17/2018 and ultrasound abdomen on 09/27/2018, Technique: Axial images were obtained from the lung bases to the bilateral proximal femurs with IV contrast. Coronal reconstructions were made. total DLP: [id number], CTDI16.8 FINDINGS: Moderate right effusion is noted and small left effusion. Bibasilar compressive atelectasis and consolidative changes are noted right greater than left. Evaluation of solid organs is limited due to lack of IV contrast. Diffuse cirrhotic appearing liver is noted with irregular borders. No discrete focal lesions. Gallstones are noted with gallbladder wall edema. Mild ascites is noted throughout the abdomen and pelvis. Splenomegaly is noted with spleen measuring 17 cm. No focal lesions. The adrenal glands are poorly visualized. No focal pancreatic lesions. There is haziness and evidence of inflammatory change within the mesentery. There is mild duodenal wall thickening. Moderate-sized fat-containing umbilical hernia is seen kidney also containing few vessels. Copious stool is seen throughout the colon. No evidence of appendicitis. No free air. Anasarca is noted. Mild atherosclerosis is noted. Degenerative changes of the spine and pelvis are noted. There is 2 mm retrolisthesis of L4 on L5 likely due to facet arthropathy. IMPRESSION: Mild generalized abdominal and pelvic ascites. Haziness and nonspecific inflammatory changes of mesenteric and pelvic fat planes are also noted. Cirrhotic liver. Splenomegaly. Gallstones and gallbladder wall edema which is nonspecific and may be due to patient's ascites. If necessary, nuclear HIDA scan may be obtained for further assessment Mild duodenal wall thickening, nonspecific and probably reactive. Moderate sized fat-containing umbilical hernia also containing a few vessels Anasarca. Moderate right and small left effusion and bibasilar passive atelectatic and consolidative changes.
[2018-10-01] MEDS ORDERED: IOHEXOL 300mgI/mL 100 ML VIAL PO ONE (11:15)
--- NOTE | 2018-10-01 13:43 | Infectious Disease Prog Note ---
Infectious Disease Subjective - Review of Systems Service Date: 10/01/18 Events since last encounter: Thoracentesis was done yesterday. no fever. Subjective: No new change, no fever, cough present. Infectious Disease Objective - Results Result Diagrams: 10/01/18 06:30 10/01/18 06:30 Recent Labs: Laboratory Last Values WBC 3.5 Th/cmm (4.8-10.8) L 10/01/18 06:30 RBC 2.68 Mil/cmm (4.30-5.70) L 10/01/18 06:30 Hgb 8.3 gm/dL (12-16) L 10/01/18 06:30 Hct 24.5 % (41.0-60) L 10/01/18 06:30 MCV 91.3 fl (80-99) 10/01/18 06:30 MCH 30.8 pg (26.0-30.0) H 10/01/18 06:30 MCHC Differential 33.7 pg (28.0-36.0) 10/01/18 06:30 RDW 18.3 % (11.5-20.0) 10/01/18 06:30 Plt Count 30 Th/cmm (150-400) L 10/01/18 06:30 MPV 8.5 fl 10/01/18 06:30 Add Manual Diff YES 10/01/18 06:30 Neutrophils % LIGHT RAIL SIGNAL TECHNICIAN 09/29/18 06:00 Band Neutrophils % 2 % (0-10) 10/01/18 06:30 Lymphocytes % LIGHT RAIL SIGNAL TECHNICIAN 09/29/18 06:00 Monocytes % LIGHT RAIL SIGNAL TECHNICIAN 09/29/18 06:00 Eosinophils % LIGHT RAIL SIGNAL TECHNICIAN 09/29/18 06:00 Basophils % LIGHT RAIL SIGNAL TECHNICIAN 09/29/18 06:00 Neutrophils (Manual) 65 % (40-80) 10/01/18 06:30 Lymphocytes 20 % (20-50) 10/01/18 06:30 Monocytes 8 % (2-10) 10/01/18 06:30 Eosinophils 5 % (0-5) 10/01/18 06:30 Basophils 0 % (0-3) 10/01/18 06:30 Metamyelocytes 2 % (0-0) H 09/28/18 06:38 Platelet Estimate DECREASED PLATELETS (NORMAL) 10/01/18 06:30 PT 17.7 SECONDS (9.5-11.5) H 09/27/18 11:30 INR 1.75 (0.5-1.4) H 09/27/18 11:30 PTT (Actin FS) 29.7 SECONDS (26.0-38.0) 09/27/18 11:30 Specimen Source Arterial 09/29/18 08:15 Sample Site RB 09/29/18 08:15 pH 7.44 (7.35-7.45) 09/29/18 08:15 pCO2 29.0 mmHg (35.0-45.0) L 09/29/18 08:15 pO2 66.0 mmHg (80.0-100.0) L 09/29/18 08:15 HCO3 22.0 mEq/L (20.0-26.0) 09/29/18 08:15 Base Excess 22.2 mEq/L (-3.0-3.0) H 09/29/18 08:15 O2 Saturation 93.0 % (92.0-100.0) 09/29/18 08:15 Rafael Test NA 09/29/18 08:15 Vent Rate NA 09/29/18 08:15 Inspired O2 21 09/29/18 08:15 Tidal Volume NA 09/29/18 08:15 PEEP NA 09/29/18 08:15 Pressure (ins/psv/peep) NA 09/29/18 08:15 Critical Value SH 09/29/18 08:15 Sodium 130 mEq/L (136-145) L 10/01/18 06:30 Potassium 3.9 mEq/L (3.5-5.1) 10/01/18 06:30 Chloride 106 mEq/L (98-107) 10/01/18 06:30 Carbon Dioxide 22.0 mEq/L (21.0-31.0) 10/01/18 06:30 Anion Gap 5.9 (7.0-16.0) L 10/01/18 06:30 BUN 14 mg/dL (7-25) 10/01/18 06:30 Creatinine 0.6 mg/dL (0.7-1.3) L 10/01/18 06:30 Est GFR ( Amer) > 60.0 ml/min (>90) 10/01/18 06:30 Est GFR (Non-Af Amer) > 60.0 ml/min 10/01/18 06:30 BUN/Creatinine Ratio 23.3 10/01/18 06:30 Glucose 92 mg/dL (70-105) 10/01/18 06:30 POC Glucose 87 MG/DL (70 - 105) 09/27/18 17:54 Whole Bld Lactic Acid 0.98 mmol/L (0.60-1.99) 09/29/18 05:15 Calcium 7.8 mg/dL (8.6-10.3) L 10/01/18 06:30 Total Bilirubin 2.9 mg/dL (0.3-1.0) H 10/01/18 06:30 AST 77 U/L (13-39) H 10/01/18 06:30 ALT 51 U/L (7-52) 10/01/18 06:30 Alkaline Phosphatase 95 U/L (34-104) 10/01/18 06:30 Ammonia 48 umol/L (16-53) 10/01/18 06:30 Troponin I 0.01 ng/mL (0.01-0.05) 09/27/18 11:30 B-Natriuretic Peptide 10.2 pg/mL (5.0-100.0) 09/27/18 11:30 Total Protein 4.7 gm/dL (6.0-8.3) L 10/01/18 06:30 Albumin 1.8 gm/dL (4.2-5.5) L 10/01/18 06:30 Globulin 2.9 gm/dL 10/01/18 06:30 Albumin/Globulin Ratio 0.6 (1.0-1.8) L 10/01/18 06:30 Lipase 38 U/L (11-82) 09/27/18 11:30 Urine Source MIDSTREAM 09/27/18 14:30 Urine Color ORANGE 09/27/18 14:30 Urine Clarity HAZY (CLEAR) 09/27/18 14:30 Urine pH 5.5 (4.6 - 8.0) 09/27/18 14:30 Ur Specific [place] 1.025 (1.005-1.030) 09/27/18 14:30 Urine Protein 100 mg/dL (NEGATIVE) H 09/27/18 14:30 Urine Glucose (UA) NEGATIVE mg/dL (NEGATIVE) 09/27/18 14:30 Urine Ketones TRACE mg/dL (NEGATIVE) 09/27/18 14:30 Urine Blood NEGATIVE (NEGATIVE) 09/27/18 14:30 Urine Nitrate NEGATIVE (NEGATIVE) 09/27/18 14:30 Urine Bilirubin MODERATE (NEGATIVE) H 09/27/18 14:30 Urine Ictotest NEGATIVE (NEGATIVE) 09/27/18 14:30 Urine Urobilinogen 1.0 E.U./dL (0.2 - 1.0) 09/27/18 14:30 Ur Leukocyte Esterase NEGATIVE (NEGATIVE) 09/27/18 14:30 Urine RBC 0-2 /hpf (0-5) H 09/27/18 14:30 Urine WBC 6-10 /hpf (0-5) 09/27/18 14:30 Ur Epithelial Cells FEW /lpf (FEW) 09/27/18 14:30 Urine Bacteria MANY /hpf (NONE SEEN) H 09/27/18 14:30 Vancomycin Trough 24.7 ug/mL (5-10) H 10/01/18 06:30 Random Vancomycin 14.6 ug/mL (5.0-40.0) 10/01/18 10:10 Influenza A (Rapid) NEG FOR INF A 09/29/18 15:15 Influenza B (Rapid) NEG FOR INF B 09/29/18 15:15 L.pneumophila Antigen Negative (Negative) 09/29/18 16:55 Blood Type O POSITIVE 09/28/18 13:00 Antibody Screen NEGATIVE 09/28/18 13:00 - Physical Exam Vitals and I&O: Vital Signs Temp 97.6 F 10/01/18 11:54 Pulse 79 10/01/18 11:54 Resp 18 10/01/18 12:29 BP 95/51 10/01/18 11:54 Pulse Ox 100 10/01/18 11:54 Intake & Output 09/30/18 10/01/18 10/01/18 18:59 06:59 18:59 Intake Total 300 1420 550 Balance 300 1420 550 Weight (lbs) 115.349 kg Intake: Intake, IV Amount 300 500 550 Azithromycin 500 mg In 250 Sodium Chloride 0.9% 250 ml @ 250 mls/hr IV Q24HR [facility] Rx#:[id number] Cefepime 1 gm In Sodium 50 50 Chloride 0.9% 50 ml @ 100 mls/hr IV Q8HR [facility] Rx#: [id number] Vancomycin HCl 1.5 gm In 500 500 Sodium Chloride 0.9% 500 ml @ 250 mls/hr IV Q8HR@ 0000,0800,1600 [facility] Rx#: [id number] Oral 920 Other: # Voids 2 # Bowel Movements 0 Stool Characteristics Formed Formed Formed Brown Brown Brown Weight Source Bedscale Active Medications: Current Medications Albuterol/Ipratropium (Duoneb Neb) 3 ml HHN Q6HRT [facility] Stop: 11/26/18 18:59 Last Admin: 10/01/18 06:55 Dose: 3 ml Albuterol/Ipratropium (Duoneb Neb) 3 ml HHN Q2HRT PRN PRN Reason: Wheezing Stop: 11/26/18 18:40 Furosemide (Lasix) 40 mg PO DAILY [facility] Stop: 11/27/18 08:59 Last Admin: 10/01/18 08:18 Dose: Not Given Cefepime HCl 1 gm/ Sodium (Chloride) 50 mls @ 100 mls/hr IV Q8HR [facility] Stop: 11/26/18 20:59 Last Admin: 10/01/18 08:47 Dose: 100 mls/hr Azithromycin 500 mg/ Sodium (Chloride) 250 mls @ 250 mls/hr IV Q24HR [facility] Stop: 11/27/18 09:59 Last Admin: 10/01/18 10:36 Dose: 250 mls/hr Vancomycin HCl 1.25 gm/ Sodium (Chloride) 250 mls @ 165 mls/hr IV Q8HR@0200, 1000,1800 [facility] Stop: 11/30/18 11:29 Last Admin: 10/01/18 11:55 Dose: 165 mls/hr Miscellaneous (Vancomycin Iv Per Pharmacy) 1 ea MC PRN PRN PRN Reason: PROTOCOL Stop: 11/26/18 17:55 Spironolactone (Aldactone) 100 mg PO DAILY [facility] Stop: 11/27/18 08:59 Last Admin: 10/01/18 08:18 Dose: Not Given General: no acute distress, well developed, well nourished HEENT: atraumatic, normocephalic, PERRLA, EOMI Neck: supple, no thyromegaly Cardiovascular: S1S2, regular Lungs: clear to auscultation bilaterally, clear to percussion, crackles, other ( crackles present.) Abdomen: soft, no tender, no distended, no mass Extremities: no cyanosis, no clubbing, no edema Neurological: awake, alert, oriented Skin: intact, rash Infectious Disease Assmt/Plan - Assessment Assessment: 1. Right-sided pneumonia with large effusion. 2. Bandemia and fever, sepsis. 3. Liver cirrhosis. 4. Hypersplenism. 5. Thrombocytopenia. 6. Anemia. - Plan Plan: continue vancomycin and cefepime. DC Zithromax. Check mycoplasma serology. HIDA ordered. Nutritional Asmnt/Malnutr-PDOC - Dietary Evaluation Malnutrition Findings (Please click <Entered> for more info): Nutritional Asmnt/Malnutrition Start: 09/30/18 13: 54 Text: Status: Complete Freq: Protocol: Document 09/30/18 13:55 [email or web address] (Rec: 09/30/18 14:05 [email or web address]) Nutritional Asmnt/Malnutrition Patient General Information Nutritional Screening High Risk Diagnosis sepsis, R/O peritonitis Pertinent Medical Hx/Surgical Hx chronic alcoholism, cirrhosis Subjective Information Pt was seen resting in bed at time of visit, albanian speaking only. PO intake is 100% per EMR. Pt was NPO this morning for thoracentesis. Current Diet Order/ Nutrition Support low sodium 2gm Pertinent Medications lasix, vancomycin Pertinent Labs 09/30 Na 127, cr 0.5, Ca 7.7, alb 1.7 09/29 Na 126, BUN 27, cr 0.6, ca 7.9, alb 1.7 Nutritional Hx/Data Height 1.73 m Height (Calculated Centimeters) 172.7 Current Weight (lbs) 116.12 kg Weight (Calculated Kilograms) 116.1 Weight (Calculated Grams) 080111.6 [place] Body Weight 154 Body Mass Index (BMI) 38.9 Weight Status Obese GI Symptoms GI Symptoms None Last BM 09/28 x2 Difficult in: None Food Allergies No Skin Integrity/Comment: brownish discoloration lower ext, germán 19 Current %PO Good (75-100%) Estimated Nutritional Goals BEE in Kcals: Adj wt of IBW Calories/Kcals/Kg 25-30 Kcals Calculated 6089-2990 Protein: Adj wt of IBW Protein g/k-1.2 Protein Calculated 81-97 Fluid: ml 2614-1107 (1ml/kcal) Nutritional Problem 1. Problem Problem altered nutriton related labs Etiology fluid/electrolyte imbalance Signs/Symptoms: Na 126-127 Malnutrition Alert Is there a minimum of two criteria No selected? Query Text:Check all the applicable criteria. A minimum of two criteria are recommended for diagnosis of either severe or non-severe malnutrition. Malnutrition Related to Morbid Obesity Malnutrition related to morbid obesity No Intervention/Recommendation Comments 1. Continue with low sodium 2gm diet as ordered. 2. MD to replace electrolytes 3. Monitor PO intake, wt, labs and skin integrity 4. F/U as moderate risk in 3-5 days Expected Outcomes/Goals Expected Outcomes/Goals 1. PO intake to meet at least 75% of nutritional needs. 2. Wt stability, skin to remain intact, labs to approach WNL. Reviewed by Aleida Tim RD
--- NOTE | 2018-10-01 14:33 | Pathology Report ---
PRELIMINARY REPORT, PENDING IMMUNOHISTOCHEMISTRY [id number] Collection Date: 09/30/2018 Surgeon: Dr. Lokesh Krishnamurthy Specimen Description: Pleural fluid for cytology. Gross Description: Received in a large container without fixative is approximately 1000 mL of reddish watery fluid. A new accounts banking representative portion is submitted for cytology processing. Microscopic Description: Examination of two cytospins and one cell block shows a bloody specimen with large numbers of red blood cells, admixed with inflammatory cells that consist of neutrophils, lymphocytes, and macrophages. There are also mesothelial cells identified, some of which show mild nuclear enlargement and atypia. None of these cells are overly malignant in appearance. Diagnosis: A few atypical cells present, most likely representing a reactive/inflammatory change (cytology of thoracentesis fluid). Comment: The specimen consists of mostly blood and inflammatory cells. A few mildly atypical cells are seen that most likely represent reactive mesothelial atypia, which can be seen in association with infection, inflammation, and cirrhosis. Clinical correlation and followup that is recommended to determine if further studies are warranted. [facility]# [id number] [facility]PITALSil[facility]
--- NOTE | 2018-10-01 16:11 | General Progress Note ---
Subjective - Review of Systems Service Date: 10/01/18 Subjective: undergoing HIDA scan Objective - Results Result Diagrams: 10/01/18 06:30 10/01/18 06:30 Recent Labs: Laboratory Last Values WBC 3.5 Th/cmm (4.8-10.8) L 10/01/18 06:30 RBC 2.68 Mil/cmm (4.30-5.70) L 10/01/18 06:30 Hgb 8.3 gm/dL (12-16) L 10/01/18 06:30 Hct 24.5 % (41.0-60) L 10/01/18 06:30 MCV 91.3 fl (80-99) 10/01/18 06:30 MCH 30.8 pg (26.0-30.0) H 10/01/18 06:30 MCHC Differential 33.7 pg (28.0-36.0) 10/01/18 06:30 RDW 18.3 % (11.5-20.0) 10/01/18 06:30 Plt Count 30 Th/cmm (150-400) L 10/01/18 06:30 MPV 8.5 fl 10/01/18 06:30 Add Manual Diff YES 10/01/18 06:30 Neutrophils % MOTOR EXPERT 09/29/18 06:00 Band Neutrophils % 2 % (0-10) 10/01/18 06:30 Lymphocytes % MOTOR EXPERT 09/29/18 06:00 Monocytes % MOTOR EXPERT 09/29/18 06:00 Eosinophils % MOTOR EXPERT 09/29/18 06:00 Basophils % MOTOR EXPERT 09/29/18 06:00 Neutrophils (Manual) 65 % (40-80) 10/01/18 06:30 Lymphocytes 20 % (20-50) 10/01/18 06:30 Monocytes 8 % (2-10) 10/01/18 06:30 Eosinophils 5 % (0-5) 10/01/18 06:30 Basophils 0 % (0-3) 10/01/18 06:30 Metamyelocytes 2 % (0-0) H 09/28/18 06:38 Platelet Estimate DECREASED PLATELETS (NORMAL) 10/01/18 06:30 PT 17.7 SECONDS (9.5-11.5) H 09/27/18 11:30 INR 1.75 (0.5-1.4) H 09/27/18 11:30 PTT (Actin FS) 29.7 SECONDS (26.0-38.0) 09/27/18 11:30 Specimen Source Arterial 09/29/18 08:15 Sample Site RB 09/29/18 08:15 pH 7.44 (7.35-7.45) 09/29/18 08:15 pCO2 29.0 mmHg (35.0-45.0) L 09/29/18 08:15 pO2 66.0 mmHg (80.0-100.0) L 09/29/18 08:15 HCO3 22.0 mEq/L (20.0-26.0) 09/29/18 08:15 Base Excess 22.2 mEq/L (-3.0-3.0) H 09/29/18 08:15 O2 Saturation 93.0 % (92.0-100.0) 09/29/18 08:15 Rafael Test NA 09/29/18 08:15 Vent Rate NA 09/29/18 08:15 Inspired O2 21 09/29/18 08:15 Tidal Volume NA 09/29/18 08:15 PEEP NA 09/29/18 08:15 Pressure (ins/psv/peep) NA 09/29/18 08:15 Critical Value SH 09/29/18 08:15 Sodium 130 mEq/L (136-145) L 10/01/18 06:30 Potassium 3.9 mEq/L (3.5-5.1) 10/01/18 06:30 Chloride 106 mEq/L (98-107) 10/01/18 06:30 Carbon Dioxide 22.0 mEq/L (21.0-31.0) 10/01/18 06:30 Anion Gap 5.9 (7.0-16.0) L 10/01/18 06:30 BUN 14 mg/dL (7-25) 10/01/18 06:30 Creatinine 0.6 mg/dL (0.7-1.3) L 10/01/18 06:30 Est GFR ( Amer) > 60.0 ml/min (>90) 10/01/18 06:30 Est GFR (Non-Af Amer) > 60.0 ml/min 10/01/18 06:30 BUN/Creatinine Ratio 23.3 10/01/18 06:30 Glucose 92 mg/dL (70-105) 10/01/18 06:30 POC Glucose 87 MG/DL (70 - 105) 09/27/18 17:54 Whole Bld Lactic Acid 0.98 mmol/L (0.60-1.99) 09/29/18 05:15 Calcium 7.8 mg/dL (8.6-10.3) L 10/01/18 06:30 Total Bilirubin 2.9 mg/dL (0.3-1.0) H 10/01/18 06:30 AST 77 U/L (13-39) H 10/01/18 06:30 ALT 51 U/L (7-52) 10/01/18 06:30 Alkaline Phosphatase 95 U/L (34-104) 10/01/18 06:30 Ammonia 48 umol/L (16-53) 10/01/18 06:30 Troponin I 0.01 ng/mL (0.01-0.05) 09/27/18 11:30 B-Natriuretic Peptide 10.2 pg/mL (5.0-100.0) 09/27/18 11:30 Total Protein 4.7 gm/dL (6.0-8.3) L 10/01/18 06:30 Albumin 1.8 gm/dL (4.2-5.5) L 10/01/18 06:30 Globulin 2.9 gm/dL 10/01/18 06:30 Albumin/Globulin Ratio 0.6 (1.0-1.8) L 10/01/18 06:30 Lipase 38 U/L (11-82) 09/27/18 11:30 Urine Source MIDSTREAM 09/27/18 14:30 Urine Color ORANGE 09/27/18 14:30 Urine Clarity HAZY (CLEAR) 09/27/18 14:30 Urine pH 5.5 (4.6 - 8.0) 09/27/18 14:30 Ur Specific [place] 1.025 (1.005-1.030) 09/27/18 14:30 Urine Protein 100 mg/dL (NEGATIVE) H 09/27/18 14:30 Urine Glucose (UA) NEGATIVE mg/dL (NEGATIVE) 09/27/18 14:30 Urine Ketones TRACE mg/dL (NEGATIVE) 09/27/18 14:30 Urine Blood NEGATIVE (NEGATIVE) 09/27/18 14:30 Urine Nitrate NEGATIVE (NEGATIVE) 09/27/18 14:30 Urine Bilirubin MODERATE (NEGATIVE) H 09/27/18 14:30 Urine Ictotest NEGATIVE (NEGATIVE) 09/27/18 14:30 Urine Urobilinogen 1.0 E.U./dL (0.2 - 1.0) 09/27/18 14:30 Ur Leukocyte Esterase NEGATIVE (NEGATIVE) 09/27/18 14:30 Urine RBC 0-2 /hpf (0-5) H 09/27/18 14:30 Urine WBC 6-10 /hpf (0-5) 09/27/18 14:30 Ur Epithelial Cells FEW /lpf (FEW) 09/27/18 14:30 Urine Bacteria MANY /hpf (NONE SEEN) H 09/27/18 14:30 Vancomycin Trough 24.7 ug/mL (5-10) H 10/01/18 06:30 Random Vancomycin 14.6 ug/mL (5.0-40.0) 10/01/18 10:10 Influenza A (Rapid) NEG FOR INF A 09/29/18 15:15 Influenza B (Rapid) NEG FOR INF B 09/29/18 15:15 L.pneumophila Antigen Negative (Negative) 09/29/18 16:55 Blood Type O POSITIVE 09/28/18 13:00 Antibody Screen NEGATIVE 09/28/18 13:00 - Physical Exam Vitals and I&O: Vital Signs Temp 97.4 F 10/01/18 15:45 Pulse 69 10/01/18 15:45 Resp 18 10/01/18 15:45 BP 99/54 10/01/18 15:45 Pulse Ox 100 10/01/18 15:45 Intake & Output 09/30/18 10/01/18 10/01/18 18:59 06:59 18:59 Intake Total 300 1420 600 Balance 300 1420 600 Weight (lbs) 115.349 kg Intake: Intake, IV Amount 300 500 600 Azithromycin 500 mg In 250 Sodium Chloride 0.9% 250 ml @ 250 mls/hr IV Q24HR [facility] Rx#:[id number] Cefepime 1 gm In Sodium 50 100 Chloride 0.9% 50 ml @ 100 mls/hr IV Q8HR [facility] Rx#: [id number] Vancomycin HCl 1.5 gm In 500 500 Sodium Chloride 0.9% 500 ml @ 250 mls/hr IV Q8HR@ 0000,0800,1600 [facility] Rx#: [id number] Oral 920 Other: # Voids 2 # Bowel Movements 0 Stool Characteristics Formed Formed Formed Brown Brown Brown Weight Source Bedscale Active Medications: Current Medications Albuterol/Ipratropium (Duoneb Neb) 3 ml HHN Q6HRT [facility] Stop: 11/26/18 18:59 Last Admin: 10/01/18 13:52 Dose: 3 ml Albuterol/Ipratropium (Duoneb Neb) 3 ml HHN Q2HRT PRN PRN Reason: Wheezing Stop: 11/26/18 18:40 Furosemide (Lasix) 40 mg PO DAILY [facility] Stop: 11/27/18 08:59 Last Admin: 10/01/18 08:18 Dose: Not Given Cefepime HCl 1 gm/ Sodium (Chloride) 50 mls @ 100 mls/hr IV Q8HR [facility] Stop: 11/26/18 20:59 Last Admin: 10/01/18 13:47 Dose: 100 mls/hr Azithromycin 500 mg/ Sodium (Chloride) 250 mls @ 250 mls/hr IV Q24HR [facility] Stop: 11/27/18 09:59 Last Admin: 10/01/18 10:36 Dose: 250 mls/hr Vancomycin HCl 1.25 gm/ Sodium (Chloride) 250 mls @ 165 mls/hr IV Q8HR@0200, 1000,1800 [facility] Stop: 11/30/18 11:29 Last Admin: 10/01/18 11:55 Dose: 165 mls/hr Miscellaneous (Vancomycin Iv Per Pharmacy) 1 ea MC PRN PRN PRN Reason: PROTOCOL Stop: 11/26/18 17:55 Spironolactone (Aldactone) 100 mg PO DAILY [facility] Stop: 11/27/18 08:59 Last Admin: 10/01/18 08:18 Dose: Not Given General: Alert HEENT: Atraumatic Neck: Supple Cardiovascular: Regular rate Lungs: Other (decreased air entry on left) Abdomen: Distended Assessment/Plan - Assessment Assessment: * Hepatic coagulopathy * cirrhosis * splenomegaly * hypersplenism * thrombocytopeni, chronic plt better. hgb lower; monitor Nutritional Asmnt/Malnutr-PDOC - Dietary Evaluation Malnutrition Findings (Please click <Entered> for more info): Nutritional Asmnt/Malnutrition Start: 09/30/18 13: 54 Text: Status: Complete Freq: Protocol: Document 09/30/18 13:55 [email or web address] (Rec: 09/30/18 14:05 [email or web address]) Nutritional Asmnt/Malnutrition Patient General Information Nutritional Screening High Risk Diagnosis sepsis, R/O peritonitis Pertinent Medical Hx/Surgical Hx chronic alcoholism, cirrhosis Subjective Information Pt was seen resting in bed at time of visit, british speaking only. PO intake is 100% per EMR. Pt was NPO this morning for thoracentesis. Current Diet Order/ Nutrition Support low sodium 2gm Pertinent Medications lasix, vancomycin Pertinent Labs 09/30 Na 127, cr 0.5, Ca 7.7, alb 1.7 09/29 Na 126, BUN 27, cr 0.6, ca 7.9, alb 1.7 Nutritional Hx/Data Height 1.73 m Height (Calculated Centimeters) 172.7 Current Weight (lbs) 116.12 kg Weight (Calculated Kilograms) 116.1 Weight (Calculated Grams) 575196.6 [place] Body Weight 154 Body Mass Index (BMI) 38.9 Weight Status Obese GI Symptoms GI Symptoms None Last BM 09/28 x2 Difficult in: None Food Allergies No Skin Integrity/Comment: brownish discoloration lower ext, germán 19 Current %PO Good (75-100%) Estimated Nutritional Goals BEE in Kcals: Adj wt of IBW Calories/Kcals/Kg 25-30 Kcals Calculated 1644-2189 Protein: Adj wt of IBW Protein g/k-1.2 Protein Calculated 81-97 Fluid: ml 6730-1787 (1ml/kcal) Nutritional Problem 1. Problem Problem altered nutriton related labs Etiology fluid/electrolyte imbalance Signs/Symptoms: Na 126-127 Malnutrition Alert Is there a minimum of two criteria No selected? Query Text:Check all the applicable criteria. A minimum of two criteria are recommended for diagnosis of either severe or non-severe malnutrition. Malnutrition Related to Morbid Obesity Malnutrition related to morbid obesity No Intervention/Recommendation Comments 1. Continue with low sodium 2gm diet as ordered. 2. MD to replace electrolytes 3. Monitor PO intake, wt, labs and skin integrity 4. F/U as moderate risk in 3-5 days Expected Outcomes/Goals Expected Outcomes/Goals 1. PO intake to meet at least 75% of nutritional needs. 2. Wt stability, skin to remain intact, labs to approach WNL. Reviewed by Aleida Tim RD
--- NOTE | 2018-10-01 19:17 | Progress Notes ---
DATE: 10/01/2018 PULMONARY/CRITICAL CARE PROGRESS NOTE PROBLEM LIST: 1. Bilateral effusion, most likely secondary to hepatic failure. 2. Abdominal distention, ascites versus some other pathology. SYMPTOMS: Nil. Undergoing HIDA scan today. No respiratory distress. PHYSICAL EXAMINATION VITAL SIGNS: Temperature is 97.4, blood pressure is 99/54, saturation 100% on room air. ENT: Shows no new changes. CHEST: Shows diminished air entry without much of adventitious breath sounds. HEART: Regular. ABDOMEN: Still distended, otherwise unremarkable. IMAGING: A chest x-ray shows small effusion on the right side, otherwise unremarkable. The patient's CT of the abdomen shows a moderate right effusion and also ____ thickening. Also, there is a gallstone and ____ edema and a small effusion on the left side as well. IMPRESSION: The patient is clinically stable, most likely effusion secondary to hepatic problem with cirrhosis, now has possibly gallbladder issue. PLANS AND SUGGESTIONS: Continue current respiratory therapy, GI therapy for the liver, etc. Continue low dose diuretics, etc. and go from there. [facility]# [id number]
[2018-10-02] MEDS: Albuterol/Ipratropium Neb 3 ML AERS HHN SCH ×3 (00:05→13:19)
--- NOTE | 2018-10-02 00:41 | Progress Notes ---
DATE: IDENTIFICATION: A 47-year-old male. SUBJECTIVE: The patient seen and examined. The patient feels better. The patient has no new complaint. Status post paracentesis. PHYSICAL EXAMINATION: VITAL SIGNS: Temperature 97.4, pulse 70, respiratory rate is 18, blood pressure 100/54. HEENT: No facial asymmetry, remarkable for icterus. Tongue more pink and coated. NECK: Supple, no JVD. HEART: Regular. LUNGS: Clear. ABDOMEN: Distended. AVAILABLE LABORATORY DATA: Has been reviewed. CLINICAL IMPRESSION: 1. Right lower lobe pneumonia with effusion, status post thoracentesis. 2. Pancytopenia. 3. End-stage liver disease. 4. Hypotension. 5. High risk for fall. PLAN: 1. Continue current medication as prescribed. 2. Follow consult recommendation. 3. Increase activity. 4. Discharge planning to home. 5. The patient needs to get [facility] or patient needs to go tertiary care center as an outpatient to put himself for liver transplant. [facility]# [id number]
[2018-10-02] MEDS: Cefepime 1 GM in Sodium Chloride 0.9% 50 ML IV SCH (04:30)
[2018-10-02 06:37] LABS: HEMATOCRIT 26.9 % (41.0-60); HEMOGLOBIN 8.9 gm/dL (12-16); MEAN CELL VOLUME 92.1 fl (80-99); MEAN CORPUSCULAR HEMOGLOBIN 30.4 pg (26.0-30.0); MEAN PLATELET VOLUME 9.6 fl; RED BLOOD COUNT 2.92 Mil/cmm (4.30-5.70)
[2018-10-02 06:42] LABS: PLATELET COUNT 32 Th/cmm (150-400); WHITE BLOOD COUNT 3.6 Th/cmm (4.8-10.8)
[2018-10-02 06:50] LABS: ALB/GLOB RATIO 0.6 (1.0-1.8); ALBUMIN 1.9 gm/dL (4.2-5.5); ALKALINE PHOSPHATASE 89 U/L (34-104); BILIRUBIN,TOTAL 3.6 mg/dL (0.3-1.0); BUN - UREA NITROGEN 13 mg/dL (7-25); CARBON DIOXIDE 22.1 mEq/L (21.0-31.0); CHLORIDE 106 mEq/L (98-107); CREATININE - SERUM 0.5 mg/dL (0.7-1.3); GFR AFRICAN-AMERICAN > 60.0 ml/min (>90); GFR NON AFRICAN-AMERICAN > 60.0 ml/min; GLUCOSE 100 mg/dL (70-105); POTASSIUM SERUM 4.1 mEq/L (3.5-5.1); SGOT 77 U/L (13-39); SGPT/ALT 54 U/L (7-52); SODIUM SERUM 132 mEq/L (136-145)
[2018-10-02 07:05] LABS: BAND NEUTROPHILE 1 % (0-10); BASOPHIL 0 % (0-3); EOSINOPHIL 4 % (0-5); LYMPHOCYTE 26 % (20-50); MONOCYTE 10 % (2-10); NEUTROPHILS 59 % (40-80); PLATELET ESTIMATE DECREASED PLATELETS (NORMAL)
--- NOTE | 2018-10-02 08:41 | Diagnostic Imaging Report ---
Nuclear medicine HIDA scan HISTORY: Pain, assess for possible cholecystitis COMPARISON: Abdominal ultrasound on 09/17/[address] abdomen and pelvis on 09/17/2018 Technique/procedure: 5.1 mCi of technetium labeled Choletec was administered intravenously and multiple scintigraphic images were obtained for up to 1 hour. FINDINGS: Prompt hepatic uptake is demonstrated. Early gallbladder uptake is seen. Small bowel uptake is also seen throughout the first hour. IMPRESSION: No evidence of acute cholecystitis.
[2018-10-02] MEDS: Azithromycin 500 MG in Sodium Chloride 0.9% 250 ML IV SCH (09:34)
--- NOTE | 2018-10-02 11:20 | Progress Notes ---
DATE: 10/02/2018 PATIENT'S ID: A 47-year-old male. SUBJECTIVE: The patient seen and examined. The patient is lying in the bed. The patient denies any chest pain, shortness of breath, palpitation, dizziness, nausea, vomiting, diarrhea, dysuria, hematuria, hematochezia, or melena. No cough or fever. PHYSICAL EXAMINATION: VITAL SIGNS: Temperature 98.6, pulse 74, respiratory rate 18, blood pressure 98/60. HEENT: No facial asymmetry. NECK: Supple, no JVD. HEART: Regular. CHEST AND LUNGS: Equal in expansion, no expiratory wheezing. ABDOMEN: Soft. No guarding, no rigidity. Liver and spleen not palpable. No palpable mass. Abdomen was distended. EXTREMITIES: Trace edema noted. NEUROLOGIC: Alert, awake, follows commands. No gross neuro deficit noted. AVAILABLE DIAGNOSTIC DATA: Performed in the Emergency Room has been reviewed. CLINICAL IMPRESSIONS: 1. Acute respiratory insufficiency. 2. Pneumonia with effusion. 3. End-stage liver disease. 4. Pancytopenia. 5. Obesity. 6. Debility. PLAN: Discharge this patient to home with emir Blanton and have outpatient followup with the [facility]. The patient is advised at this time to see a tertiary care center for possible liver transplant evaluation, which the patient has fully understood. JOB# [id number]
--- NOTE | 2018-10-02 11:28 | Discharge Summary ---
DATE OF DISCHARGE: 10/02/2018 PATIENT'S ID: A 47-year-old male. PRINCIPAL DIAGNOSES: 1. Acute respiratory failure, resolved. 2. Right lower lobe pneumonia. 3. Right-sided pleural effusion, most likely parapneumonic versus secondary to cirrhosis of liver. 4. End-stage liver disease. 5. Pancytopenia secondary to sequestration secondary to splenomegaly caused by cirrhosis of liver. 6. Cholelithiasis with negative HIDA scan. 7. Obesity. 8. Hypoosmolar hyponatremia secondary to cirrhosis of liver and volume overload. BRIEF STATEMENT FOR THE REASON FOR ADMISSION: A 47-year-old Turkish male with a diagnosis of end-stage liver disease, presented to Emergency Room for evaluation of difficulty in breathing with increasing feeling bloated. The patient was worked up in the Emergency Room, noted to have large right-sided pleural effusion with pneumonia associated with severe thrombocytopenia and jaundice. The patient was advised to be admitted in the hospital for further treatment. HOSPITAL COURSE: The patient was admitted to telemetry unit. Oxygen nebulizer treatment, IV antibiotic was started. The patient was seen by Infectious Disease, Pulmonary MD. The patient was advised to get ultrasound-guided thoracentesis. GI also followed the patient for end-stage liver disease. It was noted that the patient's platelets were the critically low, Hematology/Oncology consultation was requested and the patient was followed by Dr. Barragan. The patient did have optimization of his platelet function by giving platelet transfusion. The patient underwent thoracentesis. The patient did not have any evidence of an infection. The patient's symptoms significantly improved. The patient has been discharged to home in stable condition with Levaquin to be continued at home for 7 days. The patient is informed at this time to see his primary care doctor as well as go to tertiary care center to put himself for liver transplant. The patient and his is fully understood. The patient has been discharged home and at the time of discharge, all of his medications were reconciled. JOB# [id number]
--- NOTE | 2018-10-02 11:57 | GI Progress Note ---
Subjective - Review of Systems Subjective: NO EVENTS Objective - Results Result Diagrams: 10/02/18 06:09 10/02/18 06:09 Recent Labs: Laboratory Last Values WBC 3.6 Th/cmm (4.8-10.8) L 10/02/18 06:09 RBC 2.92 Mil/cmm (4.30-5.70) L 10/02/18 06:09 Hgb 8.9 gm/dL (12-16) L 10/02/18 06:09 Hct 26.9 % (41.0-60) L 10/02/18 06:09 MCV 92.1 fl (80-99) 10/02/18 06:09 MCH 30.4 pg (26.0-30.0) H 10/02/18 06:09 MCHC Differential 33.0 pg (28.0-36.0) 10/02/18 06:09 RDW 18.0 % (11.5-20.0) 10/02/18 06:09 Plt Count 32 Th/cmm (150-400) L 10/02/18 06:09 MPV 9.6 fl 10/02/18 06:09 Add Manual Diff YES 10/02/18 06:09 Neutrophils % FURNACE CHARGER 09/29/18 06:00 Band Neutrophils % 1 % (0-10) 10/02/18 06:09 Lymphocytes % FURNACE CHARGER 09/29/18 06:00 Monocytes % FURNACE CHARGER 09/29/18 06:00 Eosinophils % FURNACE CHARGER 09/29/18 06:00 Basophils % FURNACE CHARGER 09/29/18 06:00 Neutrophils (Manual) 59 % (40-80) 10/02/18 06:09 Lymphocytes 26 % (20-50) 10/02/18 06:09 Monocytes 10 % (2-10) 10/02/18 06:09 Eosinophils 4 % (0-5) 10/02/18 06:09 Basophils 0 % (0-3) 10/02/18 06:09 Metamyelocytes 2 % (0-0) H 09/28/18 06:38 Platelet Estimate DECREASED PLATELETS (NORMAL) 10/02/18 06:09 PT 17.7 SECONDS (9.5-11.5) H 09/27/18 11:30 INR 1.75 (0.5-1.4) H 09/27/18 11:30 PTT (Actin FS) 29.7 SECONDS (26.0-38.0) 09/27/18 11:30 Specimen Source Arterial 09/29/18 08:15 Sample Site RB 09/29/18 08:15 pH 7.44 (7.35-7.45) 09/29/18 08:15 pCO2 29.0 mmHg (35.0-45.0) L 09/29/18 08:15 pO2 66.0 mmHg (80.0-100.0) L 09/29/18 08:15 HCO3 22.0 mEq/L (20.0-26.0) 09/29/18 08:15 Base Excess 22.2 mEq/L (-3.0-3.0) H 09/29/18 08:15 O2 Saturation 93.0 % (92.0-100.0) 09/29/18 08:15 Rafael Test NA 09/29/18 08:15 Vent Rate NA 09/29/18 08:15 Inspired O2 21 09/29/18 08:15 Tidal Volume NA 09/29/18 08:15 PEEP NA 09/29/18 08:15 Pressure (ins/psv/peep) NA 09/29/18 08:15 Critical Value SH 09/29/18 08:15 Sodium 132 mEq/L (136-145) L 10/02/18 06:09 Potassium 4.1 mEq/L (3.5-5.1) 10/02/18 06:09 Chloride 106 mEq/L (98-107) 10/02/18 06:09 Carbon Dioxide 22.1 mEq/L (21.0-31.0) 10/02/18 06:09 Anion Gap 8.0 (7.0-16.0) 10/02/18 06:09 BUN 13 mg/dL (7-25) 10/02/18 06:09 Creatinine 0.5 mg/dL (0.7-1.3) L 10/02/18 06:09 Est GFR ( Amer) > 60.0 ml/min (>90) 10/02/18 06:09 Est GFR (Non-Af Amer) > 60.0 ml/min 10/02/18 06:09 BUN/Creatinine Ratio 26.0 10/02/18 06:09 Glucose 100 mg/dL (70-105) 10/02/18 06:09 POC Glucose 87 MG/DL (70 - 105) 09/27/18 17:54 Whole Bld Lactic Acid 0.98 mmol/L (0.60-1.99) 09/29/18 05:15 Calcium 8.0 mg/dL (8.6-10.3) L 10/02/18 06:09 Total Bilirubin 3.6 mg/dL (0.3-1.0) H 10/02/18 06:09 AST 77 U/L (13-39) H 10/02/18 06:09 ALT 54 U/L (7-52) H 10/02/18 06:09 Alkaline Phosphatase 89 U/L (34-104) 10/02/18 06:09 Ammonia 48 umol/L (16-53) 10/01/18 06:30 Troponin I 0.01 ng/mL (0.01-0.05) 09/27/18 11:30 B-Natriuretic Peptide 10.2 pg/mL (5.0-100.0) 09/27/18 11:30 Total Protein 5.0 gm/dL (6.0-8.3) L 10/02/18 06:09 Albumin 1.9 gm/dL (4.2-5.5) L 10/02/18 06:09 Globulin 3.1 gm/dL 10/02/18 06:09 Albumin/Globulin Ratio 0.6 (1.0-1.8) L 10/02/18 06:09 Lipase 38 U/L (11-82) 09/27/18 11:30 Urine Source MIDSTREAM 09/27/18 14:30 Urine Color ORANGE 09/27/18 14:30 Urine Clarity HAZY (CLEAR) 09/27/18 14:30 Urine pH 5.5 (4.6 - 8.0) 09/27/18 14:30 Ur Specific [place] 1.025 (1.005-1.030) 09/27/18 14:30 Urine Protein 100 mg/dL (NEGATIVE) H 09/27/18 14:30 Urine Glucose (UA) NEGATIVE mg/dL (NEGATIVE) 09/27/18 14:30 Urine Ketones TRACE mg/dL (NEGATIVE) 09/27/18 14:30 Urine Blood NEGATIVE (NEGATIVE) 09/27/18 14:30 Urine Nitrate NEGATIVE (NEGATIVE) 09/27/18 14:30 Urine Bilirubin MODERATE (NEGATIVE) H 09/27/18 14:30 Urine Ictotest NEGATIVE (NEGATIVE) 09/27/18 14:30 Urine Urobilinogen 1.0 E.U./dL (0.2 - 1.0) 09/27/18 14:30 Ur Leukocyte Esterase NEGATIVE (NEGATIVE) 09/27/18 14:30 Urine RBC 0-2 /hpf (0-5) H 09/27/18 14:30 Urine WBC 6-10 /hpf (0-5) 09/27/18 14:30 Ur Epithelial Cells FEW /lpf (FEW) 09/27/18 14:30 Urine Bacteria MANY /hpf (NONE SEEN) H 09/27/18 14:30 Vancomycin Trough 12.2 ug/mL (5-10) H 10/02/18 09:00 Random Vancomycin 14.6 ug/mL (5.0-40.0) 10/01/18 10:10 Influenza A (Rapid) NEG FOR INF A 09/29/18 15:15 Influenza B (Rapid) NEG FOR INF B 09/29/18 15:15 L.pneumophila Antigen Negative (Negative) 09/29/18 16:55 Blood Type O POSITIVE 09/28/18 13:00 Antibody Screen NEGATIVE 09/28/18 13:00 - Physical Exam Vitals and I&O: Vital Signs Temp 98.2 F 10/02/18 11:45 Pulse 86 10/02/18 11:45 Resp 18 10/02/18 11:45 BP 112/59 10/02/18 11:45 Pulse Ox 97 10/02/18 11:45 Intake & Output 10/01/18 10/02/18 10/02/18 18:59 06:59 18:59 Intake Total 1600 550 500 Balance 1600 550 500 Weight (lbs) 116.12 kg 116.375 kg 116.301 kg Intake: Intake, IV Amount 1400 350 Azithromycin 500 mg In 250 Sodium Chloride 0.9% 250 ml @ 250 mls/hr IV Q24HR [facility] Rx#:[id number] Cefepime 1 gm In Sodium 150 100 Chloride 0.9% 50 ml @ 100 mls/hr IV Q8HR [facility] Rx#: [id number] Vancomycin HCl 1.25 gm In 500 250 Sodium Chloride 0.9% 250 ml @ 165 mls/hr IV Q8HR@ 0200,1000,1800 COUNTS INCLUDE 234 BEDS AT THE [facility] Rx#: [id number] Vancomycin HCl 1.5 gm In 500 Sodium Chloride 0.9% 500 ml @ 250 mls/hr IV Q8HR@ 0000,0800,1600 COUNTS INCLUDE 234 BEDS AT THE [facility] Rx#: [id number] Oral 200 200 500 Other: # Voids 4 3 # Bowel Movements 0 1 0 Stool Characteristics Formed Formed Formed Brown Brown Brown [facility] Active Medications: Current Medications Albuterol/Ipratropium (Duoneb Neb) 3 ml HHN Q6HRT COUNTS INCLUDE 234 BEDS AT THE [facility] Stop: 11/26/18 18:59 Last Admin: 10/02/18 07:17 Dose: 3 ml Albuterol/Ipratropium (Duoneb Neb) 3 ml HHN Q2HRT PRN PRN Reason: Wheezing Stop: 11/26/18 18:40 Furosemide (Lasix) 40 mg PO DAILY COUNTS INCLUDE 234 BEDS AT THE [facility] Stop: 11/27/18 08:59 Last Admin: 10/02/18 08:40 Dose: Not Given Cefepime HCl 1 gm/ Sodium (Chloride) 50 mls @ 100 mls/hr IV Q8HR COUNTS INCLUDE 234 BEDS AT THE [facility] Stop: 11/26/18 20:59 Last Infusion: 10/02/18 05:35 Dose: Infused Azithromycin 500 mg/ Sodium (Chloride) 250 mls @ 250 mls/hr IV Q24HR COUNTS INCLUDE 234 BEDS AT THE [facility] Stop: 11/27/18 09:59 Last Admin: 10/02/18 09:34 Dose: 250 mls/hr Vancomycin HCl 1.25 gm/ Sodium (Chloride) 250 mls @ 165 mls/hr IV Q8HR@0200, 1000,1800 COUNTS INCLUDE 234 BEDS AT THE [facility] Stop: 11/30/18 11:29 Last Admin: 10/02/18 10:11 Dose: 165 mls/hr Miscellaneous (Vancomycin Iv Per Pharmacy) 1 ea MC PRN PRN PRN Reason: PROTOCOL Stop: 11/26/18 17:55 Spironolactone (Aldactone) 100 mg PO DAILY COUNTS INCLUDE 234 BEDS AT THE [facility] Stop: 11/27/18 08:59 Last Admin: 10/02/18 08:41 Dose: Not Given General: Alert HEENT: Atraumatic Neck: Supple Cardiovascular: Regular rate Lungs: Other (decreased air entry on left) Abdomen: Distended Assessment/Plan - Assessment Assessment: 47 YO MALE WITH ETOH CIRRHOSIS WITH ASCITES AND THROMBOCYTOPENIA JULISSA SHOWED GALLSTONES BUT NO CLINICAL SYMPTOMS NOT ENOUGH FLUID FOR PARACENTESIS THEREFORE ONLY THORACENTESIS DONE HIDA NEG 1.DIURETICS IF BP CAN ADDISON 2.PARVIZ IF SYMPTOMS BUT WOULD BE HIGH RISK GIVEN LOW PLT AND CIRRHOSIS 3.NEEDS TO ESTABLISH CARE WITH HEPATOLOGY THROUGH PCP 4.REFRAIN FROM ETOH
== END 2018-10-02 13:19 | disposition home or self-care (01) | DRG 139 ==
LOC: ER 11:00 → MSI 17:18 → TELE 09-28 01:06
PROVIDERS: ADMIT Internal Medicine; ATTEND Internal Medicine
PROC: 30233K1 Transfusion of Nonautologous Frozen Plasma into Peripheral Vein, Percutaneous Approach (ICD-10-PCS; principal; 2018-09-30)
PROC: 30233R1 Transfusion of Nonautologous Platelets into Peripheral Vein, Percutaneous Approach (ICD-10-PCS; 2018-09-30)
PROC: 0W993ZZ Drainage of Right Pleural Cavity, Percutaneous Approach (ICD-10-PCS; 2018-09-30)
DX: J18.1 Lobar pneumonia, unspecified organism (principal); J96.00 Acute respiratory failure, unspecified whether with hypoxia or hypercapnia; J90 Pleural effusion, not elsewhere classified; D61.818 Other pancytopenia; D68.8 Other specified coagulation defects; D68.9 Coagulation defect, unspecified; E87.1 Hypo-osmolality and hyponatremia; R16.2 Hepatomegaly with splenomegaly, not elsewhere classified; K72.90 Hepatic failure, unspecified without coma; K70.31 Alcoholic cirrhosis of liver with ascites; D73.1 Hypersplenism; D64.9 Anemia, unspecified; K42.9 Umbilical hernia without obstruction or gangrene; I10 Essential (primary) hypertension; F10.20 Alcohol dependence, uncomplicated; K80.80 Other cholelithiasis without obstruction; D63.8 Anemia in other chronic diseases classified elsewhere; E66.9 Obesity, unspecified; Z68.39 Body mass index [BMI] 39.0-39.9, adult; Z87.891 Personal history of nicotine dependence; Z82.49 Family history of ischemic heart disease and other diseases of the circulatory system; Z91.81 History of falling
CPT/HCPCS: 36415-UA; 36600-90; 71045-TC; 71046-TC; 71250-TC; 76700-TC; 76942-TC; 78226-TC; 80053-TC; 80202-TC; 81001-TC; 82140-TC; 82803-TC; 82948-90; 83605; 83690-TC; 83880-TC; 84132-TC; 84484-TC; 85007-TC; 85025-TC; 85610-TC; 86738-90; 86850-TC; 86900-TC; 86901-TC; 87070; 87086-90; 87449-90; 87804-TC; 93005; 94640; 94760; 96375; A9537; J0456; J0692; J1940; J2543; J3370; J7030; J7040; P9017; P9035; P9046; Q9967; Z7610

== ENCOUNTER 2018-10-14 23:02 | Inpatient (IN) | payer MEDICAID ==
[2018-10-15 00:34] LABS: INR 1.69 (0.5-1.4); PROTHROMBIN TIME (TEST) 17.2 SECONDS (9.5-11.5)
--- NOTE | 2018-10-15 00:34 | ED Physician Chart ---
ED Chief Complaint/HPI - Patient Information Date Seen:: 10/14/18 Time Seen:: 23:00 Allergies:: Allergies Allergy/AdvReac Type Severity Reaction Status Date / Time No Known Allergies Allergy Verified 02/18/18 19:06 Vitals:: Vital Signs - 8 hr 10/14/18 10/14/18 23:05 23:35 Temp 98.3 F 98.5 F HR 90 95 RR 18 25 BP 124/64 119/60 O2 Sat % 99 100 ED Review of Systems - Review of Systems General/Constitutional: No fever Skin: Skin lesions Head: No headache Eyes: No loss of vision ENT: No earache Neck: No neck pain Cardio Vascular: No chest pain Pulmonary: SOB GI: Nausea G/U: No hematuria Musculoskeletal: No back pain Psychiatric: No homicidal ideation Hematopoietic: Bruising Allergic/Immuno: No angioedema Neurological: No syncope ED Past Medical History - Past Medical History Past Medical History: Other (respiratory failure esld) Family Medical History - Family Member Mother History Unknown: Yes Ethnicity: Living Status: Unknown ED Physical Exam - Physical Examination General/Constitutional: Awake, Alert, No distress, Non-toxic appearing Head: Atraumatic Eyes: Lids, conjuctiva normal Other Skin comments:: eccymosis ENMT: External ears, nose nl Neck: Nontender Respiratory: Nl effort/Exclusion Cardio Vascular: RRR GI: No tenderness/rebounding/guarding (marked distension) : No CVA tenderness (swelling) Neuro/Psych: Alert/oriented ED Labs/Radiology/EKG Results - Lab Results Results: [facility] ED Septic Shock - . Is Septic Shock (SBP<90, OR Lactate>4 mmol\L) present?: No - <6hrs of presentation: Vital Signs: Vital Signs - 8 hr 10/14/18 10/14/18 23:05 23:35 Temp 98.3 F 98.5 F HR 90 95 RR 18 25 BP 124/64 119/60 O2 Sat % 99 100 ED Reassessment (Disposition) - Reassessment Reassessment Condition:: Unchanged (admited dr lange) - Patient Disposition Admitted to:: Med/Surg (dr marroquin)
[2018-10-15 00:48] LABS: ALB/GLOB RATIO 0.6 (1.0-1.8); ALBUMIN 1.9 gm/dL (4.2-5.5); ANION GAP 9.6 (7.0-16.0); BILIRUBIN,TOTAL 4.1 mg/dL (0.3-1.0); BUN - UREA NITROGEN 22 mg/dL (7-25); CALCIUM SERUM 7.2 mg/dL (8.6-10.3); CHLORIDE 101 mEq/L (98-107); CREATININE - SERUM 0.7 mg/dL (0.7-1.3); GFR AFRICAN-AMERICAN > 60.0 ml/min (>90); GFR NON AFRICAN-AMERICAN > 60.0 ml/min; GLUCOSE 141 mg/dL (70-105); POTASSIUM SERUM 4.6 mEq/L (3.5-5.1); SGOT 76 U/L (13-39); SGPT/ALT 43 U/L (7-52); SODIUM SERUM 126 mEq/L (136-145); TOTAL PROTEIN,SERUM 4.9 gm/dL (6.0-8.3)
[2018-10-15 00:52] LABS: URINE SOURCE RANDOM
[2018-10-15 00:55] LABS: MEAN CELL VOLUME 87.7 fl (80-99); MEAN CORPUSCULAR HEMOGLOBIN 28.8 pg (26.0-30.0); MEAN CORPUSCULAR HGB CONC 32.8 pg (28.0-36.0); MEAN PLATELET VOLUME 8.7 fl; PLATELET COUNT 67 Th/cmm (150-400); RED BLOOD COUNT 2.39 Mil/cmm (4.30-5.70); RED CELL DISTRIBUTION WIDTH 17.1 % (11.5-20.0); WHITE BLOOD COUNT 5.7 Th/cmm (4.8-10.8)
[2018-10-15 00:56] LABS: URINE BILIRUBIN NEGATIVE (NEGATIVE); URINE BLOOD NEGATIVE (NEGATIVE); URINE GLUCOSE (UA) NEGATIVE (NEGATIVE); URINE KETONE NEGATIVE (NEGATIVE); URINE LEUKOCYTE ESTERASE NEGATIVE (NEGATIVE); URINE NITRATE NEGATIVE (NEGATIVE); URINE PROTEIN NEGATIVE (NEGATIVE)
[2018-10-15 00:58] LABS: HEMOGLOBIN 6.9 gm/dL (12-16)
[2018-10-15 01:00] LABS: ALKALINE PHOSPHATASE 121 U/L (34-104)
[2018-10-15] MEDS ORDERED: Albuterol/Ipratropium Neb 3 ML AERS HHN SCH (01:00)
[2018-10-15 01:02] LABS: URINE CLARITY CLEAR (CLEAR); URINE COLOR ORANGE; URINE MICROSCOPIC INDICATED? NO
[2018-10-15 01:34] LABS: BAND NEUTROPHILE 1 % (0-10); EOSINOPHIL 2 % (0-5); HYPOCHROMIA 2+; LYMPHOCYTE 18 % (20-50); MONOCYTE 9 % (2-10); NEUTROPHILS 70 % (40-80); PLATELET ESTIMATE DECREASED PLATELETS (NORMAL); POLYCHROMASIA 1+
[2018-10-15 03:45] VITALS: BP 116/56
[2018-10-15 08:17] LABS: MEAN CELL VOLUME 87.3 fl (80-99); MEAN CORPUSCULAR HEMOGLOBIN 29.5 pg (26.0-30.0); MEAN CORPUSCULAR HGB CONC 33.8 pg (28.0-36.0); MEAN PLATELET VOLUME 8.5 fl; RED BLOOD COUNT 2.39 Mil/cmm (4.30-5.70); RED CELL DISTRIBUTION WIDTH 16.4 % (11.5-20.0); WHITE BLOOD COUNT 4.8 Th/cmm (4.8-10.8)
[2018-10-15 08:19] LABS: HEMOGLOBIN 7.1 gm/dL (12-16)
[2018-10-15 08:20] LABS: HEMATOCRIT 20.8 % (41.0-60); PLATELET COUNT 48 Th/cmm (150-400)
[2018-10-15 08:48] LABS: BAND NEUTROPHILE 1 % (0-10); EOSINOPHIL 2 % (0-5); LYMPHOCYTE 14 % (20-50); MONOCYTE 8 % (2-10); NEUTROPHILS 75 % (40-80)
[2018-10-15 08:49] LABS: BASOPHIL 0 % (0-3); PLATELET ESTIMATE DECREASED PLATELETS (NORMAL)
[2018-10-15] MEDS ORDERED: Lactulose 10 Gm/15 mL 30mL UDC PO SCH (09:00)
[2018-10-15] MEDS ORDERED: Potassium Chloride 20 mEq ER Tab PO SCH (09:00)
--- NOTE | 2018-10-15 09:04 | History and Physical ---
History of Present Illness - HPI Chief Complaint: Felling weak HPI: Patient refer that for few days he has been felling weak, He had vomit one time , he went to a private clinic and was told to go to the hospital. During ER for evaluation was found anemia below 7. Vital Signs: Last Vital Signs Temp 99.1 F 10/15/18 08:00 Pulse 109 10/15/18 08:00 Resp 18 10/15/18 08:00 BP 105/44 10/15/18 08:00 Pulse Ox 97 10/15/18 08:00 Past Medical History Cardiovascular: Report: No Pertinent Hx Pulmonary: Report: No Pertinent Hx CORRUGATOR HELPER: Report: No Pertinent Hx GI: Report: Other (Cirrhosis with ascitis) Psych: Report: No Pertinent Hx Musculoskeletal: Report: Weakness Rheumatologic: Report: No pertinent Hx Infectious Disease: Report: No Pertinent Hx Renal/: Report: No Pertinent Hx Endocrine: Report: No Pertinent Hx Dermatology: Report: No Pertinent Hx - Past Surgical History Past Surgical History: No pertinent Hx Family Medical History - Family Member Mother History Unknown: Yes Ethnicity: Living Status: Unknown Social History Smoke: No Alcohol: None Drugs: None Lives: With Family Domestic Violence: Negative - Medications Home Medications: Home Medication Medication Instructions Recorded Type Potassium Chloride ER [Klor-Con] [address] 09/18/18 Rx Furosemide [Lasix] 20 mg PO BID 09/27/18 History Lactulose [Cephulac] 22.5 ml PO DAILY 09/27/18 History Spironolactone [Aldactone] 50 mg PO BID 09/27/18 History Albuterol/Ipratropium Neb [Duoneb 3 ml HHN Q6HRT aers 10/02/18 Rx Neb] - Allergies Allergies/Adverse Reactions: Allergies Allergy/AdvReac Type Severity Reaction Status Date / Time No Known Allergies Allergy Verified 02/18/18 19:06 Review of Systems - Review of Systems Constitutional: Report: Weakness Eyes: Report: No Significant ENT: Report: No Significant Respiratory: Report: No Significant Cardiovascular: Report: No Significant Gastrointestinal: Report: Nausea, Vomiting Genitourinary: Report: No Significant Musculoskeletal: Report: No Significant Skin: Report: No Significant Neurological: Report: Weakness Physical Exam - Physical Exam HEENT: Report: Ears Nose Throat within normal limits Neck: Report: Within normal limits Cardiovascular Systems: Report: Regular, Rate and Rhythm Respiratory: Report: Breath Sounds are within normal limits Abdomen: Report: Non-tender to palpation Back: Report: Inspection of back is within normal limits. Extremities: Report: Non-tender to palpation. Skin: Report: Color of skin is within normal limits, Warm Neuro/Psych: Report: Mood affect is within normal limits - Lab Results All Lab Results last 24 hours: Laboratory Results - last 24 hr 10/15/18 10/15/18 10/15/18 00:00 00:00 00:00 WBC RBC Hgb Hct MCV MCH MCHC Differential RDW Plt Count MPV Add Manual Diff Band Neutrophils % Neutrophils (Manual) Lymphocytes Monocytes Eosinophils Basophils Hypochromia Platelet Estimate Polychromasia PT 17.2 H INR 1.69 H PTT (Actin FS) 29.7 Sodium 126 L Potassium 4.6 Chloride 101 Carbon Dioxide 20.0 L Anion Gap 9.6 BUN 22 Creatinine 0.7 Est GFR ( Amer) > 60.0 Est GFR (Non-Af Amer) > 60.0 BUN/Creatinine Ratio 31.4 Glucose 141 H Calcium 7.2 L Total Bilirubin 4.1 H AST 76 H ALT 43 Alkaline Phosphatase 121 H Ammonia 53 Total Protein 4.9 L Albumin 1.9 L Globulin 3.0 Albumin/Globulin Ratio 0.6 L Urine Source Urine Color Urine Clarity Urine pH Ur Specific [place] Urine Protein Urine Glucose (UA) Urine Ketones Urine Blood Urine Nitrate Urine Bilirubin Urine Urobilinogen Ur Leukocyte Esterase Blood Type Antibody Screen Crossmatch 10/15/18 10/15/18 10/15/18 00:40 00:45 00:45 WBC 5.7 RBC 2.39 L Hgb 6.9 L* Hct 21.0 L MCV 87.7 MCH 28.8 MCHC Differential 32.8 RDW 17.1 Plt Count 67 L MPV 8.7 Add Manual Diff YES Band Neutrophils % 1 Neutrophils (Manual) 70 Lymphocytes 18 L Monocytes 9 Eosinophils 2 Basophils Hypochromia 2+ Platelet Estimate DECREASED PLATELETS Polychromasia 1+ PT INR PTT (Actin FS) Sodium Potassium Chloride Carbon Dioxide Anion Gap BUN Creatinine Est GFR ( Amer) Est GFR (Non-Af Amer) BUN/Creatinine Ratio Glucose Calcium Total Bilirubin AST ALT Alkaline Phosphatase Ammonia Total Protein Albumin Globulin Albumin/Globulin Ratio Urine Source RANDOM Urine Color ORANGE Urine Clarity CLEAR Urine pH 6.0 Ur Specific [place] 1.025 Urine Protein NEGATIVE Urine Glucose (UA) NEGATIVE Urine Ketones NEGATIVE Urine Blood NEGATIVE Urine Nitrate NEGATIVE Urine Bilirubin NEGATIVE Urine Urobilinogen 4.0 H Ur Leukocyte Esterase NEGATIVE Blood Type O POSITIVE Antibody Screen NEGATIVE Crossmatch See Detail 10/15/18 08:08 WBC 4.8 RBC 2.39 L Hgb 7.1 L* Hct 20.8 L* MCV 87.3 MCH 29.5 MCHC Differential 33.8 RDW 16.4 Plt Count 48 L MPV 8.5 Add Manual Diff YES Band Neutrophils % 1 Neutrophils (Manual) 75 Lymphocytes 14 L Monocytes 8 Eosinophils 2 Basophils 0 Hypochromia Platelet Estimate DECREASED PLATELETS Polychromasia PT INR PTT (Actin FS) Sodium Potassium Chloride Carbon Dioxide Anion Gap BUN Creatinine Est GFR ( Amer) Est GFR (Non-Af Amer) BUN/Creatinine Ratio Glucose Calcium Total Bilirubin AST ALT Alkaline Phosphatase Ammonia Total Protein Albumin Globulin Albumin/Globulin Ratio Urine Source Urine Color Urine Clarity Urine pH Ur Specific [place] Urine Protein Urine Glucose (UA) Urine Ketones Urine Blood Urine Nitrate Urine Bilirubin Urine Urobilinogen Ur Leukocyte Esterase Blood Type Antibody Screen Crossmatch - Assessment Assessment: Patient is awake, alert, calm in no acute distress. Dx: Anemia, Cirrhosis, Ascitis. - Plan Plan: Patient already received blood transfusion, at this time he is stable. Patient will de discharge home to continue treatment with PCP.
--- NOTE | 2018-10-15 10:26 | Diagnostic Imaging Report ---
Ultrasound abdomen, Limited History: End-stage liver disease, abdominal distention Comparison: CT abdomen and pelvis on 10/01/2018 Findings: Ultrasound of the abdomen demonstrates mild ascites. IMPRESSION: Mild ascites, not safely amenable for paracentesis procedure this time.
== END 2018-10-15 13:08 | disposition home or self-care (01) ==
LOC: ER 23:02 → TELE 23:45
PROVIDERS: ADMIT General Practice; ATTEND General Practice
PROC: 30233N1 Transfusion of Nonautologous Red Blood Cells into Peripheral Vein, Percutaneous Approach (ICD-10-PCS; principal; 2018-10-15)
DX: K74.60 Unspecified cirrhosis of liver (principal); R18.8 Other ascites; E44.1 Mild protein-calorie malnutrition; E87.1 Hypo-osmolality and hyponatremia; D64.9 Anemia, unspecified
CPT/HCPCS: 36415-UA; 76705-TC; 80053-TC; 81003-TC; 82140-TC; 85007-TC; 85025-TC; 85610-TC; 86850-TC; 86900-TC; 86901-TC; 86922-TC; 94640; 94760; J1940; P9016; Z7610